=== PATIENT | female | born 1940 | race Caucasian/White ===

== ENCOUNTER 2016-11-23 12:34 | Emergency (ER) | payer BC ==
[~2016-11-23] VITALS: Ht 162.6 cm; Wt 65.9 kg
[~2016-11-23 12:34] MED LIST: ACET-1311 PO; AMLO-110 PO; ASCO1CAP3 PO; ASPEC81 PO; BISA10SU38 PR; BSP15 PO; CPC PO; CYCL10TA6 PO; FEBU40TA PO; HYOS1TAB PO; LCTX PO; LSX20 PO; LVQ500 PO; MULT-506 PO; NUTR-7 PO; OXYC-164 PO; OXYC-292 PO; POTA20TA16 PO; SITA50TA PO; TPRSR25 PO; ZLF50 PO; ZNTT/150 PO
[2016-11-23 12:38] VITALS: TEMP 36.8; Ht 162.6 cm; Wt 65.9 kg
[2016-11-23 12:43] VITALS: O2SAT 95
[2016-11-23] MEDS ORDERED: SODIUM CHLORIDE 0.9% 1000ML 1,000 ML IV ONE (13:08)
[2016-11-23] MEDS ORDERED: FENTANYL CITRATE INJ 50 MCG/1 ML 2 ML VIAL IV STA (13:13)
[2016-11-23] MEDS ORDERED: ONDANSETRON INJ 2 MG/ML 2 ML VIAL IV STA (13:13)
--- NOTE | 2016-11-23 13:19 | EMERGENCY ROOM VISIT NOTE ---
History Report prepared by Donnie: Dia Olivera Under the Supervision of: Dr. Alverto Reeves M.D. First contact with patient: 12:59 Chief Complaint: CONFUSION Stated Complaint: AMS/CONFUSION/WOUND ON BACK SIDE Nursing Triage Summary: Patient resides at [facility] and has a sacral wound, staff had wound vac on and felt it was looking worse so the wound wound vac was removed, patient also had reported increased confusion this morning. Patient states "i dont remember anything except being loaded into the ambulance", Patient is alert to place and person and confused on times. History of Present Illness The patient is a 76 year old female who presents to the Emergency Room with complaints of worsening confusion. She was brought to the ED via EMS from [facility], where she currently resides. The patient has a sacral wound with a wound vac in place, but EMS reports staff at [facility] felt it was looking worse, so they removed the wound vac earlier today. They also report the patient was increasingly confused and had a fever this morning, which prompted an ambulance being called. The patient currently complains of feeling weak and fatigued. She does not have a fever here in the ED. She is able to state where is currently and knows the month, but not the day of the week. She denies any abdominal pain. 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 A total of 10 systems reviewed and were otherwise negative. Past Medical & Surgical Medical Problems: (1) Acute kidney failure (2) Hypertension (3) Sacral osteomyelitis (4) Sacral wound Family History Breast cancer MOTHER Colon cancer BROTHER Diabetes mellitus FATHER MOTHER Heart disease FATHER MOTHER Hypertension FATHER MOTHER Social History Smoking Status: Never Smoker Drug Use: none Marital Status: Housing Status: lives alone Occupation Status: retired Current/Historical Medications Scheduled Amlodipine (Norvasc), 5 MG PO DAILY Ascorbic Acid (Vitamin C), 500 MG PO BID Aspirin Enteric Coated (Ecotrin Or Generic *), 81 MG PO DAILY Buspirone HCl (Buspirone HCl), 15 MG PO TID Cyclobenzaprine Hcl (Flexeril), 1 TAB PO TID Febuxostat (Uloric), 1 TAB PO DAILY Furosemide (Furosemide), 20 MG PO QAM Lactobacillus Acidophilus (Floranex), 4 TAB PO TIDM Levofloxacin (Levofloxacin), 750 MG PO Q48H Metoprolol Succinate (Metoprolol Succinate ER), 75 MG PO DAILY Multivitamin (Multivitamin), 1 TAB PO DAILY Nutritional Supplements (Boost), 1 CAN PO BIDM Potassium Ext Rel (Klor-Con), 20 MEQ PO DAILY Ranitidine (Zantac), 1 TAB PO BID Sertraline HCl (Sertraline HCl), 50 MG PO DAILY Sitagliptin Phosphate (Januvia), 1 TAB PO DAILY Sulfa/Trimethoprim (Bactrim Ds 800MG/160MG), 1 TAB PO BID Scheduled PRN Acetaminophen (Tylenol), 650 MG PO Q6 PRN for Temp Bisacodyl (Dulcolax), 1 SUPP WA DAILY PRN for Constipation Hyoscyamine Sulfate (Levsin), 0.125 MG PO Q6 PRN for Pain Menthol (Ricola), 1 THUAN PO PRN PRN for SORE THROAT Oxycodone Hcl (Oxycodone Hcl Er), 10 MG PO BID PRN for Pain Oxycodone Hcl (Oxycodone Hcl), 1 TAB PO Q4 PRN for Pain Allergies Coded Allergies: Morphine (Verified Adverse Reaction, Unknown, "BECAME PALE AND NEARLY PASSED OUT WITH SPORTS CLERK MORPHINE", 11/08/16) BECAME PALE AND NEARLY PASSED-OUT WITH SPORTS CLERK MORPHINE (NO SKIN RASH, NO DIFFICULTY BREATHING), BUT HAS TOLERATED PERCOCET AND DEMEROL ON PAST ADMISSION. Physical Exam Vital Signs Date Time Temp Pulse Resp B/P Pulse Ox O2 Delivery O2 Flow Rate FiO2 11/23/16 17:07 72 18 114/62 98 11/23/16 15:24 76 18 150/77 96 Room Air 11/23/16 14:00 83 18 127/67 93 Room Air 11/23/16 12:50 84 11/23/16 12:43 95 Room Air 11/23/16 12:38 36.8 86 18 118/62 98 Room Air Physical Exam GENERAL: Patient is a healthy-appearing well-nourished HEAD: Normocephalic atraumatic EYES: Ocular movements intact pupils equal and react to light OROPHARYNX mucous membranes are moist no exudates present no erythema or edema present NECK: Supple no nuchal rigidity CHEST: Good equal expansion LUNGS: Clear and equal to auscultation CARDIAC: Normal S1 and S2 ABDOMEN: Soft nontender no guarding BACK: Quarter sized decubitus ulcer on buttock, stage 2. No CVA tenderness EXTREMITIES: No pain upon palpation normal muscle strength in all groups no clubbing cyanosis or edema NEURO: Patient is following commands is answering questions appropriately. Alert and oriented x3 Cranial Nerves 2-12 grossly intact Medical Decision & Procedures ER Provider Diagnostic Interpretation: This X-Ray was reviewed and interpreted by myself and the radiologist. SINGLE VIEW CHEST IMPRESSION: There is no acute cardiopulmonary abnormality. Electronically signed by: Hang Molina M.D. 11/23/2016 1:[address] scan was reviewed and interpreted by the radiologist and reviewed by myself. CT SCAN OF THE BRAIN WITHOUT IV CONTRAST IMPRESSION: There is no hemorrhage, mass effect, or evidence of acute territorial ischemia by CT criteria. Electronically signed by: Hang Molina M.D. 11/23/2016 3:11 PM Laboratory Results 11/23/16 12:50 Red Blood Count 4.06, Mean Corpuscular Volume 88.7, Mean Corpuscular Hemoglobin 29.1, Mean Corpuscular Hemoglobin Concent 32.8, Mean Platelet Volume 11.3, Neutrophils (%) (Auto) 73.0, Lymphocytes (%) (Auto) 12.5, Monocytes (%) (Auto) 11.5, Eosinophils (%) (Auto) 2.5, Basophils (%) (Auto) 0.2, Neutrophils # (Auto ) 7.12, Lymphocytes # (Auto) 1.22, Monocytes # (Auto) 1.12, Eosinophils # (Auto ) 0.24, Basophils # (Auto) 0.02 11/23/16 12:50 Test 11/23/16 12:50 11/23/16 13:45 11/23/16 13:50 White Blood Count 9.75 K/uL (4.8-10.8) Red Blood Count 4.06 M/uL (4.2-5.4) Hemoglobin 11.8 g/dL (12.0-16.0) Hematocrit 36.0 % (37-47) Mean Corpuscular Volume 88.7 fL (80-100) Mean Corpuscular Hemoglobin 29.1 pg (25-34) Mean Corpuscular Hemoglobin Concent 32.8 g/dl (32-36) Platelet Count 246 K/uL (130-400) Mean Platelet Volume 11.3 fL (7.4-10.4) Neutrophils (%) (Auto) 73.0 % Lymphocytes (%) (Auto) 12.5 % Monocytes (%) (Auto) 11.5 % Eosinophils (%) (Auto) 2.5 % Basophils (%) (Auto) 0.2 % Neutrophils # (Auto) 7.12 K/uL (1.4-6.5) Lymphocytes # (Auto) 1.22 K/uL (1.2-3.4) Monocytes # (Auto) 1.12 K/uL (0.11-0.59) Eosinophils # (Auto) 0.24 K/uL (0-0.5) Basophils # (Auto) 0.02 K/uL (0-0.2) RDW Standard Deviation 47.2 fL (36.4-46.3) RDW Coefficient of Variation 14.6 % (11.5-14.5) Immature Granulocyte % (Auto) 0.3 % Immature Granulocyte # (Auto) 0.03 K/uL (0.00-0.02) Prothrombin Time 12.1 SECONDS (9.0-12.0) Prothromb Time International Ratio 1.1 (0.9-1.1) Activated Partial Thromboplast Time 29.4 SECONDS (21.0-31.0) Partial Thromboplastin Ratio 1.1 Anion Gap 9.0 mmol/L (3-11) Est Creatinine Clear Calc Drug Dose 47.6 ml/min Estimated GFR () 68.3 Estimated GFR (Non- 58.9 BUN/Creatinine Ratio 26.6 (10-20) Bedside Lactic Acid Venous 0.85 mmol/L (0.90-1.70) Calcium Level 8.5 mg/dl (8.5-10.1) Total Bilirubin 0.5 mg/dl (0.2-1) Aspartate Amino Transf (AST/SGOT) 25 U/L (15-37) Alanine Aminotransferase (ALT/SGPT) 19 U/L (12-78) Alkaline Phosphatase 96 U/L (45-117) Total Creatine Kinase 99 U/L (26-192) Creatine Kinase MB 1.0 ng/ml (0.5-3.6) Creatine Kinase MB Ratio 1.0 (0-3.0) Troponin I < 0.015 ng/ml (0-0.045) Total Protein 5.5 gm/dl (6.4-8.2) Albumin 2.6 gm/dl (3.4-5.0) Globulin 2.9 gm/dl (2.5-4.0) Albumin/Globulin Ratio 0.9 (0.9-2) Urine Color YELLOW Urine Appearance CLEAR (CLEAR) Urine pH 6.0 (4.5-7.5) Urine Specific [place] 1.011 (1.000-1.030) Urine Protein NEG (NEG) Urine Glucose (UA) NEG (NEG) Urine Ketones NEG (NEG) Urine Occult Blood NEG (NEG) Urine Nitrite NEG (NEG) Urine Bilirubin NEG (NEG) Urine Urobilinogen NEG (NEG) Urine Leukocyte Esterase SMALL (NEG) Urine WBC (Auto) 5-10 /hpf (0-5) Urine RBC (Auto) 0-4 /hpf (0-4) Urine Hyaline Casts (Auto) 1-5 /lpf (0-5) Urine Epithelial Cells (Auto) >30 /lpf (0-5) Urine Bacteria (Auto) NEG (NEG) Influenza Type A Antigen Neg for Influ A (NEG) Influenza Type B Antigen Neg for Influ B (NEG) Medications Administered Medications (Trade) Dose Ordered Sig/Lulú Route Start Time Stop Time Status Last Admin Dose Admin Sodium Chloride (Nss 1000ml) 1,000 ml @ 999 mls/hr Q1H1M ONCE IV 11/23/16 13:08 11/23/16 14:08 DC 11/23/16 13:08 999 MLS/HR Fentanyl Citrate (Fentanyl Inj) 50 mcg NOW STAT IV 11/23/16 13:13 11/23/16 13:15 DC 11/23/16 13:41 50 MCG Ondansetron HCl (Zofran Inj) 4 mg NOW STAT IV 11/23/16 13:13 11/23/16 13:15 DC 11/23/16 13:40 4 MG Ceftriaxone Sodium (Rocephin Inj) 1 gm NOW STAT IV 11/23/16 14:39 11/23/16 14:40 DC 11/23/16 15:25 1 GM Trimethoprim/ Sulfamethoxazole (Septra Ds 800/ 160MG Tab) 1 tab NOW STAT PO 11/23/16 15:18 11/23/16 15:19 DC 11/23/16 15:32 1 TAB ECG Indication: altered mental status Rate (beats per minute): 82 Rhythm: normal sinus (normal sinus rhythm) Findings: no acute ischemic change, no ectopy ED Course 1310: Past medical records reviewed. The patient was evaluated in room A3. A complete history and physical examination was performed. 1308: NSS 1000 ml @ 999 mls/hr IV. 1313: Zofran 4 mg IV, Fentanyl Citrate 50 mcg IV. 1439: Rocephin 1 gm IV. 1518: Septra Ds 800/160 mg 1 tab PO. 1520: I reevaluated the patient. She is feeling better. I discussed her results and discharge instructions and she verbalized complete understanding and agreement. Medical Decision Prior records reviewed and summarized as above. Triage Nursing notes reviewed. Additional history obtained from EMS and nursing staff. The patient's history was concerning for swelling and redness of the skin. Differential diagnosis: Etiologies such as cellulitis, abscess, MRSA infection, DVT, necrotizing fasciitis, dermatitis, drug eruption, as well as others were entertained. This is a 76-year-old female who was sent into the emergency department over concerns that the patient had an occasion mental status. Upon arrival to the emergency department the patient appears alert and oriented. An IV was established, patient given normal saline bolus. The patient does appear to have urinary tract infection and was started on Rocephin as well as Bactrim. She has a normal CAT scan of the head. She has a normal CBC normal renal profile normal liver profile. Her vital signs are normal. She is nontoxic in appearance. Prior to discharge the patient was ambulated around the emergency department and was feeling much better. I feel she is well enough to be discharged back to [facility]. Patient was in agreement with the treatment plan. Impression Primary Impression: Urinary tract infection Scribe Attestation The scribe's documentation has been prepared under my direction and personally reviewed by me in its entirety. I confirm that the note above accurately reflects all work, treatment, procedures, and medical decision making performed by me. Departure Information Dispostion Home / Self-Care Prescriptions Sulfa/Trimethoprim (Bactrim Ds 800MG/160MG) Tab 1 TAB PO BID for 7 Days, #14 TAB Prov: Alverto Reeves MD 11/23/16 Referrals Yuriy Henriquez MD (PCP) Patient Instructions A Signature Page, ED UTI Cystitis Female, My [facility] Additional Instructions Increase fluids next 48 hours Culture results are usually available in approx 48 hours You have been examined and treated today on an emergency basis only. This is not a substitute for, or an effort to provide, complete comprehensive medical care. It is impossible to recognize and treat all injuries or illnesses in a single emergency department visit. It is therefore important that you follow up closely with Dr Henriquez. Call as soon as possible for an appointment. Thank you for your time and consideration. I look forward to speaking with you again soon. Please don't hesitate to call us if you have any questions.
[2016-11-23 13:21] LABS: BASO % 0.2 %; BASO ABS # 0.02 K/uL (0-0.2); COMPLETE YES; EOS % 2.5 %; IG% 0.3 %; LYMPH % 12.5 %; LYMPH ABS # 1.22 K/uL (1.2-3.4); MEAN CELL VOLUME 88.7 fL (80-100); MEAN CORPUSCULAR HEMOGLOBIN 29.1 pg (25-34); MEAN CORPUSCULAR HGB CONC 32.8 g/dl (32-36); MEAN PLATELET VOLUME 11.3 fL (7.4-10.4); MONO % 11.5 %; PLATELET COUNT 246 K/uL (130-400); RED BLOOD COUNT 4.06 M/uL (4.2-5.4); WHITE BLOOD COUNT 9.75 K/uL (4.8-10.8)
[2016-11-23 13:29] LABS: ALT/SGPT 19 U/L (12-78); AST/SGOT 25 U/L (15-37); BLOOD UREA NITROGEN 25 mg/dl (7-18); BUN/CREATININE RATIO 26.6 (10-20); CALCIUM 8.5 mg/dl (8.5-10.1); CARBON DIOXIDE 28 mmol/L (21-32); CHLORIDE 110 mmol/L (98-107); CREATININE 0.94 mg/dl (0.60-1.20); GLUCOSE 122 mg/dl (70-99); POTASSIUM 3.3 mmol/L (3.5-5.1); SODIUM 147 mmol/L (136-145)
[2016-11-23 13:34] LABS: ALB/GLOB RATIO 0.9 (0.9-2); ALKALINE PHOSPHATASE 96 U/L (45-117); INR 1.1 (0.9-1.1); PARTIAL THROMBOPLASTIN RATIO 1.1; PROTHROMBIN TIME (PATIENT) 12.1 SECONDS (9.0-12.0)
--- NOTE | 2016-11-23 13:36 | DIAGNOSTIC IMAGING REPORT ---
SINGLE VIEW CHEST CLINICAL HISTORY: Change in mental status. FINDINGS: An AP, portable, upright chest radiograph is compared to study dated 11/08/2016. Correlation is made with abdominal CT dated 10/22/2016. The examination is degraded by portable technique and patient rotation. The heart is top normal for projection. There is atherosclerotic calcification of the thoracic aorta. The pulmonary vasculature is noncongested. There are low lung volumes. Chronic interstitial thickening is unchanged. No airspace consolidation, large pleural effusion, or pneumothorax is seen. The skeletal structures are osteopenic. Advanced arthritic change is present in the shoulders. IMPRESSION: There is no acute cardiopulmonary abnormality. Electronically signed by: Hang Molina M.D. 11/23/2016 1:35 PM
[2016-11-23 14:15] LABS: URINE APPEARANCE CLEAR (CLEAR); URINE BILIRUBIN NEG (NEG); URINE COLOR YELLOW; URINE EPITHELIAL CELL AUTO >30 /lpf (0-5); URINE NITRITE NEG (NEG); URINE SPECIFIC GRAVITY 1.011 (1.000-1.030); UROBILINOGEN NEG (NEG); ZZUR CULT IF INDIC CLEAN CATCH NO
[2016-11-23 14:16] LABS: MANUAL MICROSCOPIC REQUIRED? NO; REVIEW REQ? NO
[2016-11-23] MEDS ORDERED: CEFTRIAXONE SOD INJ 1 GM ADDVIAL IV STA (14:39)
--- NOTE | 2016-11-23 15:12 | DIAGNOSTIC IMAGING REPORT ---
CT SCAN OF THE BRAIN WITHOUT IV CONTRAST CLINICAL HISTORY: Change in mental status. COMPARISON STUDY: No priors. TECHNIQUE: Unenhanced axial CT scan of the brain is performed from the vertex to the skull base. CT DOSE: 537.48 mGy.cm FINDINGS: Brain parenchyma: There are age-related involutional changes noting mild subcortical and periventricular microangiopathic change. There is no hemorrhage, mass effect, or evidence of acute territorial ischemia by CT criteria. Zelaya-white matter is preserved. Mineralization is noted in the basal ganglia. No extra-axial fluid collection is seen. Ventricles, sulci, cisterns: Prominent secondary to involutional change. Intracranial vasculature: There is atherosclerotic calcification of the cavernous carotid arteries. Calvarium: Unremarkable. Sinuses and mastoids: The visualized paranasal sinuses are clear. The mastoid air cells are well pneumatized. Orbits: The bony orbits are grossly intact. IMPRESSION: There is no hemorrhage, mass effect, or evidence of acute territorial ischemia by CT criteria. Electronically signed by: Hang Molina M.D. 11/23/2016 3:11 PM
[2016-11-23] MEDS ORDERED: SULFAMETHOXAZOLE/TRIMETHOPRIM DS 800/160MG TAB PO STA (15:18)
[2016-11-23] MEDS ORDERED: SULF800T23 PO (15:22)
[2016-11-23 17:07] VITALS: BP 114/62; PULSE 72; O2SAT 98
[2016-12-02] MEDS ORDERED: SULF800T23 PO (10:36)
[2016-12-02] MEDS ORDERED: AMOX500T PO (10:41)
[2016-12-16] MEDS ORDERED: AMOX875T PO (11:24)
[2016-12-23] MEDS ORDERED: SITA50TA3 PO (14:32)
[2016-12-23] MEDS ORDERED: FEBU40TA PO (14:32)
[2016-12-23] MEDS ORDERED: LCTX PO (14:32)
[2017-01-20] MEDS ORDERED: FURO-85 PO (14:56)
[2017-01-20] MEDS ORDERED: SITA50TA3 PO (14:56)
[2017-01-20] MEDS ORDERED: MIRT15TA2 PO (14:56)
[2017-01-20] MEDS ORDERED: BUSP15TA70 PO (14:56)
[2017-01-20] MEDS ORDERED: AMOX875T PO (14:59)
[2017-01-20] MEDS ORDERED: [UNRECOGNIZED DRUG - OTHER] PO (14:59)
[2017-01-20] MEDS ORDERED: METO25TA3 PO (14:59)
== END 2016-11-23 17:09 | disposition home or self-care (01) ==
LOC: EDBD 12:34 → C.EDA 12:36
DX: N39.0 Urinary tract infection, site not specified (principal); I10 Essential (primary) hypertension; L89.302 Pressure ulcer of unspecified buttock, stage 2; R41.0 Disorientation, unspecified

== ENCOUNTER → 2017-01-03 | Outpatient (CLI) | payer BC ==
[~2017-01-03] MED LIST changes: +AMOX875T PO; +BUSP15TA70 PO; +FURO-85 PO; -LCTX PO; -LVQ500 PO; +METO25TA3 PO; +MIRT15TA2 PO; +OXYC1TAB3 PO; +OXYC20TA50 PO; +SITA50TA3 PO; +TRAZ50TA35 PO; +[UNRECOGNIZED DRUG - OTHER] PO
[2017-01-03 10:32] LABS: BASO % 0.4 %; BASO ABS # 0.04 K/uL (0-0.2); COMPLETE YES; EOS % 29.5 %; HEMATOCRIT 37.8 % (37-47); IG% 0.2 %; LYMPH % 7.2 %; LYMPH ABS # 0.82 K/uL (1.2-3.4); MEAN CELL VOLUME 88.7 fL (80-100); MEAN CORPUSCULAR HEMOGLOBIN 29.3 pg (25-34); MEAN CORPUSCULAR HGB CONC 33.1 g/dl (32-36); MEAN PLATELET VOLUME 12.7 fL (7.4-10.4); NEUT % 57.7 %; PLATELET COUNT 267 K/uL (130-400); RED BLOOD COUNT 4.26 M/uL (4.2-5.4); WHITE BLOOD COUNT 11.33 K/uL (4.8-10.8)
[2017-01-03 10:49] LABS: BLOOD UREA NITROGEN 24 mg/dl (7-18); BUN/CREATININE RATIO 24.1 (10-20); CALCIUM 9.3 mg/dl (8.5-10.1); CARBON DIOXIDE 26 mmol/L (21-32); CHLORIDE 109 mmol/L (98-107); GLUCOSE 108 mg/dl (70-99); POTASSIUM 4.1 mmol/L (3.5-5.1); SODIUM 143 mmol/L (136-145)
[2017-01-03 10:53] LABS: PREALBUMIN 24.6 mg/dl (20-40)
[2017-01-03 13:56] LABS: ESTIMATED AVERAGE GLUCOSE 123 mg/dl; HA1C FLAG Normal (Normal)
== END | disposition home or self-care (01) ==
LOC: C.LABSPEC 01-02 10:42
PROVIDERS: ATTEND Plastic Surgery
DX: I10 Essential (primary) hypertension (principal); E11.9 Type 2 diabetes mellitus without complications

== ENCOUNTER 2017-01-26 05:29 | Observation (INO) | payer BC ==
[2017-01-20 15:02] VITALS: BMI 21.0
--- NOTE | 2017-01-20 15:37 | PAT Medication Instructions ---
Service Date Jan 20, 2017. Current Home Medication List Acetaminophen (Tylenol), 650 MG PO Q6 PRN for Temp Amlodipine (Norvasc), 5 MG PO DAILY Amoxicillin & Pot Clavulanate (Augmentin 875-125 mg), 1 TAB PO BID Ascorbic Acid (Vitamin C), 500 MG PO BID Aspirin Enteric Coated (Ecotrin Or Generic *), 81 MG PO QAM Buspirone Hcl (Buspar), 15 MG PO TID Furosemide (Lasix), 20 MG PO QAM Metoprolol Succ (Toprol Xl) (Toprol-Xl), 25 MG PO DAILY Mirtazapine Soltab (Remeron Soltab), 15 MG PO HS Multivitamin (Multivitamin), 1 TAB PO QAM Oxycodone Hcl (Oxycodone Hcl Er), 10 MG PO BID Sitagliptin (Januvia), 50 MG PO DAILY [Culturellle], 1 TAB PO NOON Medication Instructions For Your Scheduled Surgery - Check with surgeon for instructions: Aspirin Enteric Coated (Ecotrin Or Generic *), 81 MG PO QAM - Hold the following medications the morning of surgery: Sitagliptin (Januvia), 50 MG PO DAILY Multivitamin (Multivitamin), 1 TAB PO QAM Furosemide (Lasix), 20 MG PO QAM Ascorbic Acid (Vitamin C), 500 MG PO BID - Take the following medications the morning of surgery with a sip of water: Metoprolol Succ (Toprol Xl) (Toprol-Xl), 25 MG PO DAILY Buspirone Hcl (Buspar), 15 MG PO TID Amlodipine (Norvasc), 5 MG PO DAILY Amoxicillin & Pot Clavulanate (Augmentin 875-125 mg), 1 TAB PO BID Acetaminophen (Tylenol), 650 MG PO Q6 PRN for Temp (if needed) Oxycodone Hcl (Oxycodone Hcl Er), 10 MG PO BID (okay to take up to 4 hours prior to surgery) - Take the following medications as scheduled the night/afternoon before surgery : Mirtazapine Soltab (Remeron Soltab), 15 MG PO HS Buspirone Hcl (Buspar), 15 MG PO TID Amoxicillin & Pot Clavulanate (Augmentin 875-125 mg), 1 TAB PO BID Acetaminophen (Tylenol), 650 MG PO Q6 PRN for Temp (if needed) Oxycodone Hcl (Oxycodone Hcl Er), 10 MG PO BID [Culturellle], 1 TAB PO NOON If you have any questions please call us at [phone] (Hillary Walker PA-C ) or [phone] or [phone]
[2017-01-20 15:52] LABS: BASO % 0.2 %; BASO ABS # 0.02 K/uL (0-0.2); COMPLETE YES; EOS % 11.1 %; HEMATOCRIT 38.3 % (37-47); IG% 0.2 %; LYMPH % 12.7 %; LYMPH ABS # 1.27 K/uL (1.2-3.4); MEAN CELL VOLUME 91.2 fL (80-100); MEAN CORPUSCULAR HEMOGLOBIN 30.2 pg (25-34); MEAN CORPUSCULAR HGB CONC 33.2 g/dl (32-36); MEAN PLATELET VOLUME 11.6 fL (7.4-10.4); MONO % 7.5 %; NEUT % 68.3 %; PLATELET COUNT 264 K/uL (130-400); WHITE BLOOD COUNT 10.01 K/uL (4.8-10.8)
[~2017-01-26] VITALS: Ht 167.6 cm; Wt 60.4 kg
[2017-01-26] VITALS (10 sets, daily range): BP systolic 117–149; BP diastolic 51–71; PULSE 65–84; TEMP 36.4–37; O2SAT 94–99; Ht 167.6 cm; Wt 60.4 kg
[~2017-01-26 05:29] MED LIST changes: -BISA10SU38 PR; -BSP15 PO; -CPC PO; -CYCL10TA6 PO; -FEBU40TA PO; -HYOS1TAB PO; -LSX20 PO; -NUTR-7 PO; -OXYC-164 PO; -OXYC1TAB3 PO; -OXYC20TA50 PO; -POTA20TA16 PO; -SITA50TA PO; -TPRSR25 PO; -TRAZ50TA35 PO; -ZLF50 PO; -ZNTT/150 PO
[2017-01-26] MEDS ORDERED: CEFAZOLIN 2000 MG/60 ML D5W IV SCH (06:00)
[2017-01-26] MEDS ORDERED: LACTATED RINGER'S 1000ML 1,000 ML IV SCH (06:00)
[2017-01-26] MEDS ORDERED: FEBU40TA PO (06:02)
[2017-01-26] MEDS ORDERED: OXYC20TA50 PO (06:02)
[2017-01-26] MEDS ORDERED: OXYC1TAB3 PO (06:02)
[2017-01-26] MEDS ORDERED: LIDOCAINE HCL 2% 2 ML VIAL (20MG/ML) ONE (06:44)
[2017-01-26] MEDS ORDERED: PROPOFOL IV EMULSION 10 MG/ML 20 ML VIAL IV ONE (06:44)
[2017-01-26] MEDS ORDERED: ONDANSETRON INJ 2 MG/ML 2 ML VIAL ONE ×2 (06:44→07:44)
[2017-01-26] MEDS ORDERED: MIDAZOLAM HCL 1 MG/ML 2ML VIAL ONE (06:45)
[2017-01-26] MEDS ORDERED: FENTANYL CITRATE INJ 50 MCG/1 ML 2 ML VIAL ONE (06:45)
--- NOTE | 2017-01-26 06:53 | History & Physical Bridge Note ---
H&P Re-Evaluation Bridge Note: I have examined the patient, reviewed the History & Physical and in the interval since the performance of the History & Physical I have noted the following changes of clinical significance: No changes noted
[2017-01-26] MEDS ORDERED: LIDOCAINE/EPINEPHRINE 1% 20 ML VIAL ONE (06:55)
[2017-01-26] MEDS ORDERED: ROCURONIUM BROMIDE 10 MG/ML 5 ML VIAL ONE (07:44)
[2017-01-26] MEDS ORDERED: NEOSTIGMINE METHYLSULFATE 5 MG/5 ML SYR ONE (07:53)
[2017-01-26] MEDS ORDERED: GLYCOPYRROLATE INJ 0.2 MG/ML VIAL ONE (07:53)
[2017-01-26] MEDS ORDERED: FENTANYL CITRATE INJ 50 MCG/1 ML 2 ML VIAL IV PRN (08:00)
[2017-01-26] MEDS ORDERED: PROMETHAZINE HCL INJ 6.25 MG in SODIUM CHLORIDE 0.9% 50ML 50 ML IV PRN (08:00)
[2017-01-26] MEDS ORDERED: ATROPINE SULFATE 0.1 MG/ML 5ML SYR IV PRN (08:00)
[2017-01-26] MEDS ORDERED: ONDANSETRON INJ 2 MG/ML 2 ML VIAL IV PRN ×2 (08:00→08:45)
[2017-01-26] MEDS ORDERED: EpHEDrine SULFATE INJ 50 MG/ML AMP IV PRN (08:00)
[2017-01-26] MEDS ORDERED: THROMBIN 5000 UNITS KIT ONE (08:12)
[2017-01-26] MEDS ORDERED: GELATIN SPONGE 12-7MM ONE (08:12)
[2017-01-26] MEDS ORDERED: GELATIN SPONGE SZ 100 ONE (08:13)
[2017-01-26] MEDS ORDERED: METHYLENE BLUE 1% 10 ML VIAL TOP ONE (08:21)
--- NOTE | 2017-01-26 08:38 | [facility] Post Operative Brief Note ---
Immediate Operative Summary Operative Date Jan 26, 2017. Pre-Operative Diagnosis Sacral osteomylitis Post-Operative Diagnosis Same as pre-operative diagnosis Procedure(s) Performed Debridement and Closure of Sacrococcygeal Ulcer Surgeon Dr. Sabiha Mensah Manager Delivery Surgeon(s) Arlin Leonard PA-C Estimated Blood Loss 5cc Findings prominent sacrum, bone firm Specimens Culture #1: Sacral pressure ulcer, products of debridement for stat gram stain, routine culture and sensitivity, anaerobic/aerobic. Out of room at 0806 by Piotr Beaver OR Sweta. Culture #2: Sacral bone for stat gram stain, routine culture and sensitivity, anaerobic/aerobic. Out of room at 0806 by Piotr Beaver OR Sweta. A: Sacral bone Anesthesia GET Complication(s) None Disposition Recovery Room / PACU
[2017-01-26] MEDS ORDERED: PROCHLORPERAZINE INJ 5 MG in SYRINGE 4 ML IV PRN (08:45)
[2017-01-26] MEDS ORDERED: OXAZEPAM 10MG CAP PO PRN (08:45)
[2017-01-26] MEDS ORDERED: MEPERIDINE HCL 25 MG/ML CARP IV PRN (08:45)
[2017-01-26] MEDS ORDERED: ACETAMINOPHEN 325 MG TAB PO PRN (08:45)
[2017-01-26] MEDS ORDERED: DiphenhydrAMINE HCL 50 MG/ML VIAL IV PRN (08:45)
[2017-01-26] MEDS: SITAGLIPTIN 25 MG TAB PO SCH (09:00)
--- NOTE | 2017-01-26 09:23 | Anesthesiology Progress Note ---
Anesthesia Post Op Note Date & Time Jan 26, 2017 at 09:23 Vital Signs Pain Intensity: 4 Vital Signs Past 12 Hours Date Time Temp Pulse Resp B/P Pulse Ox O2 Delivery O2 Flow Rate FiO2 01/26/17 09:15 64 20 152/70 100 Nasal Cannula 4 01/26/17 09:05 64 20 159/64 100 Nasal Cannula 4 01/26/17 08:59 36.2 83 14 169/68 100 Nasal Cannula 4 01/26/17 06:03 36.6 72 22 138/67 97 Room Air Notes Mental Status: alert / awake / arousable, participated in evaluation Pt Amnestic to Procedure: Yes Nausea / Vomiting: adequately controlled Pain: adequately controlled Airway Patency, RR, SpO2: stable & adequate BP & HR: stable & adequate Hydration State: stable & adequate Anesthetic Complications: no major complications apparent
[2017-01-26] MEDS ORDERED: IV FLUIDS COMPLETED PRN (09:45)
[2017-01-26] MEDS: OXYCODONE/ACETAMINOPHEN 5-325 TAB PO PRN ×3 (11:20→19:07)
[2017-01-26] MEDS: FUROSEMIDE 20 MG TAB PO SCH ×2 (11:21→12:21)
[2017-01-26] MEDS: MULTIVITAMIN TAB PO SCH ×2 (11:22→12:22)
[2017-01-26] MEDS: AMLODIPINE BESYLATE 5 MG TAB PO SCH ×2 (11:22→12:22)
[2017-01-26] MEDS ORDERED: LACTOBACILLUS ACIDOPHILUS (FLORANEX) TAB PO SCH (12:00)
[2017-01-26] MEDS: D5W AND 1/2NSS + 20MEQ KCL 1,000 ML IV SCH (12:04)
[2017-01-26] MEDS: ASCORBIC ACID 500 MG TAB PO SCH (12:22)
[2017-01-26] MEDS: FEBUXOSTAT 40 MG TAB PO SCH (12:22)
[2017-01-26] MEDS: CEFAZOLIN IV 1,000 MG in DEXTROSE 5% 50ML 50 ML IV SCH ×2 (13:33→21:37)
[2017-01-26] MEDS: AMOXICILLIN/CLAVULANATE TAB 875 MG TAB PO SCH (21:37)
[2017-01-27] MEDS: D5W AND 1/2NSS + 20MEQ KCL 1,000 ML IV SCH (00:02)
[2017-01-27] MEDS: OXYCODONE/ACETAMINOPHEN 5-325 TAB PO PRN ×2 (00:05→07:37)
--- NOTE | 2017-01-27 00:21 | OPERATIVE REPORT ---
DATE OF OPERATION: 01/26/2017 PREOPERATIVE DIAGNOSIS: Sacral osteomyelitis. POSTOPERATIVE DIAGNOSIS: Same. PROCEDURE: Debridement and primary closure of sacrococcygeal ulcer. SURGEON: Dr. Sabiha Mensah. WAD IMPREGNATOR: Arlin Leonard PA-C. ANESTHESIA: General. COMPLICATIONS: None. INDICATION FOR THE PROCEDURE: The patient is a 76-year-old female who was referred to me via the wound care center with a nonhealing sacral ulceration which began after knee replacement surgery in 06/2016. Multiple wound healing modalities were attempted at the wound care center without success. I was asked to evaluate her for possible wound closure. At the time of evaluation, the ulcer itself was quite small, only about a centimeter in diameter with some degree of undermining and prominent bone contributing to her pressure point. I, therefore, discussed with her the option of debridement and closure. Given the small size of the ulcer, I thought it would be reasonable to attempt debridement with primary closure in this ambulatory patient. We discussed that failure rates can be quite high and that in many cases fasciocutaneous or muscle flap closure would be advantageous; however, as she is ambulatory, I felt this should be a last resort. DESCRIPTION OF THE PROCEDURE: Risks, benefits, and alternatives of the procedure were explained to the patient who agreed and signed consent. She was identified and marked in the preoperative holding area. She was brought to the operating room where she was positioned prone after being placed under general anesthesia. Surgical site was prepped and draped sterilely. A timeout procedure was performed. Methylene blue was instilled into the ulceration to determine the extent of the pseudobursa. 1% lidocaine with epinephrine was used to anesthetize the surrounding skin. A 15 blade scalpel made the elliptical incision around the ulceration in a vertically oriented direction as this would encompass the tunneling noted at 6 and 12 o'clock. The ulceration was excised using electrocautery. The base of the wound was noted to have covering of the sacrum and coccyx. There did not appear to be any active infection. Due to the bony prominence which was present, a rongeur was used to debride the bony prominence. After superficial debridement, the rongeur was used to obtain a bone culture. Following bone culture, intravenous antibiotics were administered. Debridement was continued until the pressure point was relieved. Throughout, the bone felt firm and did not clinically appear consistent with osteomyelitis. Hemostasis was achieved with electrocautery. Due to the patient's age, there is significant skin laxity noted and the width of the wound was only about 1.5 cm. Therefore, closure was performed using 2-0 Vicryl suture to reapproximate fascia over the bone, 2-0 Vicryl deep dermal sutures, 3-0 nylon interrupted vertical mattress sutures. Due to the location and potential for drainage, a Prevena wound VAC was placed. The procedure was tolerated well. The patient was awakened and transferred to recovery room in satisfactory condition. I attest to the content of the Intraoperative Record and any orders documented therein. Any exceptio ns are noted below.
[2017-01-27 04:20] VITALS: BP 109/60; PULSE 68; TEMP 36.8; O2SAT 96
[2017-01-27 07:00] VITALS: BP 98/58; PULSE 70; TEMP 36.9; O2SAT 98
--- NOTE | 2017-01-27 08:30 | Discharge Instructions ---
Discharge Instructions Date of Service Jan 27, 2017. Admission Reason for Admission: Sacral Osteomyelitits Discharge Discharge Diagnosis / Problem: sacral ulcder Discharge Goals Goal(s): Decrease discomfort Activity Recommendations Activity Limitations: per Instructions/Follow-up section ACTIVITY RECOMMENDATIONS: __Normal activities _x_No bending, lifting or straining. Do not put prolonged/direct pressure on buttock. __No driving __Driving allowed when you are off pain medications __Walking permitted __You should have help at home for ___ days DRESSINGS: __No dressings required _x_Keep dressings dry/in place until first office visit __Remove dressings ___ and leave dressings off __Apply ice ___ days __Remove dressings and reapply garment __Apply antibiotic ointment (Bacitracin, Neosporin, etc) to wounds 3-4 times/ day for 10 days BATHING: _x_Keep dressings dry _x_Sponge bathing permitted to wash hair/face __Showering permitted _x_No swimming, hot tubs or soaking in a tub MEDICATIONS: Resume previous medications unless instructed otherwise by your surgeon. _x_Do not use aspirin, Motrin, Advil or Ibuprofen as these may promote bleeding. Please use Tylenol. __Prescription(s) provided:None. Continue taking your antibiotics and pain medication from home meds OTHER INSTRUCTIONS: __Record drain output 2-3 times per day SPECIAL CARE INSTRUCTIONS: * It is normal to have a mild fever after surgery. If your temperature is higher than 101.5 degrees F, please call the office at [phone]. * Constipation is a typical side effect of pain medication. An over-the- counter stool softener will help relieve this. * Leaking around surgical drains may occur and should not cause concern. Sometimes these drains become clogged. If this happens, remove the bulb and milk the clot out of the tube, then replace the bulb. * Drainage from wounds after liposuction is normal and should be expected. Garments will become soiled. You should protect furniture and bedding. This drainage should mostly subside within 2-3 days. Leave garments in place unless instructed to remove them. * If you have unusual drainage from a wound or are concerned you have an infection or have any questions or concerns, please call the office at [phone]. FOLLOW UP VISIT: If not already scheduled, please call the office, , when you return home after surgery to schedule an appointment to be seen in _2__ days. Dr. Mensah will see you at wound care . Current Hospital Diet Patient's current hospital diet: Diabetes Type 2 Diet Discharge Diet Recommended Diet: Regular Diet Procedures Procedures Performed: Debridement and Closure of Sacrococcygeal Ulcer Pending Studies Studies pending at discharge: yes List of pending studies: culture and pathology Laboratory Results Hemoglobin A1c Test 01/03/17 10:00 Range/Units Estimated Average Glucose 123 mg/dl Hemoglobin A1c 5.9 H 4.5-5.6 % Medical Emergencies . Who to Call and When: Medical Emergencies: If at any time you feel your situation is an emergency, please call 911 immediately. . Non-Emergent Contact Non-Emergency issues call your: Primary Care Provider, Surgeon . "Provider Documentation" section prepared by Arlin Leonard. VTE Core Measure Inpt VTE Proph given/why not?: SCD's
[2017-01-27] MEDS: AMOXICILLIN/CLAVULANATE TAB 875 MG TAB PO SCH (08:38)
[2017-01-27 08:40] LABS: BASO % 0.2 %; BASO ABS # 0.02 K/uL (0-0.2); COMPLETE YES; EOS % 8.4 %; HEMATOCRIT 37.3 % (37-47); IG% 0.1 %; LYMPH % 9.6 %; LYMPH ABS # 0.98 K/uL (1.2-3.4); MEAN CELL VOLUME 89.7 fL (80-100); MEAN CORPUSCULAR HEMOGLOBIN 29.8 pg (25-34); MEAN CORPUSCULAR HGB CONC 33.2 g/dl (32-36); MEAN PLATELET VOLUME 11.3 fL (7.4-10.4); MONO % 7.2 %; NEUT % 74.5 %; PLATELET COUNT 248 K/uL (130-400); RED BLOOD COUNT 4.16 M/uL (4.2-5.4); WHITE BLOOD COUNT 10.26 K/uL (4.8-10.8)
[2017-01-27] MEDS: FUROSEMIDE 20 MG TAB PO SCH (08:41)
[2017-01-27] MEDS: ASCORBIC ACID 500 MG TAB PO SCH (08:41)
[2017-01-27] MEDS: SITAGLIPTIN 25 MG TAB PO SCH (08:41)
[2017-01-27] MEDS: AMLODIPINE BESYLATE 5 MG TAB PO SCH (08:42)
[2017-01-27] MEDS: MULTIVITAMIN TAB PO SCH (08:43)
[2017-01-27] MEDS: FEBUXOSTAT 40 MG TAB PO SCH (08:43)
[2017-01-27 08:44] VITALS: BP 117/62; PULSE 70
[2017-01-27 08:51] LABS: PROTHROMBIN TIME (PATIENT) 11.1 SECONDS (9.0-12.0)
[2017-01-27] MEDS ORDERED: METOPROLOL SUCC 25MG EXT REL TAB PO SCH (09:00)
[2017-01-27] MEDS ORDERED: BusPIRone 15 MG TAB PO SCH (09:00)
[2017-01-27 09:30] LABS: BUN/CREATININE RATIO 19.7 (10-20); CALCIUM 9.2 mg/dl (8.5-10.1); CREATININE 1.1 mg/dl (0.60-1.20); POTASSIUM 3.8 mmol/L (3.5-5.1)
[2017-01-27 09:32] LABS: ALB/GLOB RATIO 1.2 (0.9-2)
--- NOTE | 2017-01-27 10:21 | Surgery Progress Note ---
Surgery Progress Note Date of Service Jan 27, 2017. Subjective Post OP Day: 1 + feeling well, No complaints Objective Vital Signs: Date Time Temp Pulse Resp B/P Pulse Ox O2 Delivery O2 Flow Rate FiO2 01/27/17 08:44 70 117/62 01/27/17 07:46 Room Air 01/27/17 07:00 36.9 70 16 98/58 98 Room Air 01/27/17 04:20 36.8 68 16 109/60 96 Room Air 01/27/17 00:00 Room Air 01/26/17 23:10 37.0 74 16 133/62 95 Room Air 01/26/17 15:05 36.4 65 16 123/64 97 Room Air 01/26/17 13:20 36.5 67 16 133/67 95 Room Air 01/26/17 12:20 36.7 67 17 149/71 99 Room Air 01/26/17 11:20 36.7 71 17 117/51 99 Room Air 01/26/17 10:50 36.6 69 17 124/65 98 2.0 01/26/17 10:33 94 Nasal Cannula 2.0 01/26/17 10:28 94 Nasal Cannula 2.0 01/26/17 10:20 36.5 84 15 137/56 95 Nasal Cannula 2.0 General Appearance: WD/WN, no apparent distress Laboratory Results: Results Past 24 Hours Test 01/27/17 08:10 01/27/17 08:20 Range/Units Bedside Glucose 143 70-90 mg/dl White Blood Count 10.26 4.8-10.8 K/uL Red Blood Count 4.16 4.2-5.4 M/uL Hemoglobin 12.4 12.0-16.0 g/dL Hematocrit 37.3 37-47 % Mean Corpuscular Volume 89.7 80-100 fL Mean Corpuscular Hemoglobin 29.8 25-34 pg Mean Corpuscular Hemoglobin Concent 33.2 32-36 g/dl Platelet Count 248 130-400 K/uL Mean Platelet Volume 11.3 7.4-10.4 fL Neutrophils (%) (Auto) 74.5 % Lymphocytes (%) (Auto) 9.6 % Monocytes (%) (Auto) 7.2 % Eosinophils (%) (Auto) 8.4 % Basophils (%) (Auto) 0.2 % Neutrophils # (Auto) 7.65 1.4-6.5 K/uL Lymphocytes # (Auto) 0.98 1.2-3.4 K/uL Monocytes # (Auto) 0.74 0.11-0.59 K/uL Eosinophils # (Auto) 0.86 0-0.5 K/uL Basophils # (Auto) 0.02 0-0.2 K/uL RDW Standard Deviation 48.3 36.4-46.3 fL RDW Coefficient of Variation 14.8 11.5-14.5 % Immature Granulocyte % (Auto) 0.1 % Immature Granulocyte # (Auto) 0.01 0.00-0.02 K/uL Prothrombin Time 11.1 9.0-12.0 SECONDS Prothromb Time International Ratio 1.0 0.9-1.1 Activated Partial Thromboplast Time 26.1 21.0-31.0 SECONDS Partial Thromboplastin Ratio 1.0 Sodium Level 139 136-145 mmol/L Potassium Level 3.8 3.5-5.1 mmol/L Chloride Level 104 98-107 mmol/L Carbon Dioxide Level 24 21-32 mmol/L Anion Gap 11.0 3-11 mmol/L Blood Urea Nitrogen 22 7-18 mg/dl Creatinine 1.10 0.60-1.20 mg/dl Est Creatinine Clear Calc Drug Dose 40.7 ml/min Estimated GFR () 56.5 Estimated GFR (Non- 48.7 BUN/Creatinine Ratio 19.7 10-20 Random Glucose 143 70-99 mg/dl Calcium Level 9.2 8.5-10.1 mg/dl Total Bilirubin 0.5 0.2-1 mg/dl Aspartate Amino Transf (AST/SGOT) 107 15-37 U/L Alanine Aminotransferase (ALT/SGPT) 96 12-78 U/L Alkaline Phosphatase 185 45-117 U/L Total Protein 6.4 6.4-8.2 gm/dl Albumin 3.5 3.4-5.0 gm/dl Globulin 2.9 2.5-4.0 gm/dl Albumin/Globulin Ratio 1.2 0.9-2 Assessment & Plan s/p debridement of sacral ulcer 1. no complaints POD #1. patient resting comfortably with vac in place 2. d/c home. She will f/u at wound care on . D/C instructions reviewed
[2017-01-27 10:26] VITALS: BP 117/62; PULSE 70; TEMP 36.9; O2SAT 98
--- NOTE | 2017-01-27 11:48 | Discharge Summary ---
Discharge Summary Date of Service Jan 27, 2017. Admission Date/Reason Jan 26, 2017 at 10:42 Sacral Osteomyelitits. Discharge Date/Disposition Jan 27, 2017 Home Diagnosis Principal Diagnosis: sacral ulcer Secondary Diagnoses/Problems: Medical Problems: (1) Abnormal white blood cell (WBC) count Status: Acute (2) Acute kidney injury Status: Acute (3) DEREK (acute kidney injury) Status: Acute (4) Anemia Status: Acute (5) Bilateral lower leg cellulitis Status: Acute (6) Dehydration Status: Acute (7) Epigastric abdominal pain Status: Acute (8) Osteomyelitis of sacrum Status: Acute (9) Urinary tract infection Status: Acute Procedure(s) Performed debridement of sacral ulcer Medication Reconciliation Continued Medications: Acetaminophen (Tylenol) 325 Mg Tab 650 MG PO Q6 PRN for Temp, TAB Amlodipine (Norvasc) 5 Mg Tab 5 MG PO DAILY, TAB Amoxicillin & Pot Clavulanate (Augmentin 875-125 mg) 1 Tab Tab 1 TAB PO BID, #14 TAB NOON/PM Ascorbic Acid (Vitamin C) 500 Mg Cap 500 MG PO DAILY Buspirone Hcl (Buspar) 15 Mg Tab 15 MG PO TID, TAB Febuxostat (Uloric) 40 Mg Tab 1 TAB PO DAILY for 90 Days, #90 TAB 1 Refill Furosemide (Lasix) 20 Mg Tab 20 MG PO QAM, TAB Metoprolol Succ (Toprol Xl) (Toprol-Xl) 25 Mg Tabcr 25 MG PO DAILY, #30 TAB Oxycodone Hcl (Oxycontin) 20 Mg Tab 10 MG PO Q12, TAB Oxycodone Ir (Roxicodone Ir) 5 Mg Tab 10 MG PO Q4H PRN for Severe Pain, TAB Sitagliptin (Januvia) 50 Mg Tab 50 MG PO DAILY, TAB [Culturellle] () 1 TAB PO NOON Discontinued Medications: Aspirin Enteric Coated (Ecotrin Or Generic *) 81 Mg Ectab 81 MG PO QAM Admission Physical Exam As per Admitting History & Physical. Hospital Course Patient presented to [facility] with history of a sacral ulcer., She was taken to the OR and underwent debridement of the ulcer. Culture and gram stain was taken of overlying soft tissue and bone. Biopsies were taken and sent to pathology. Wound vac dressing was placed. Patient tolerated the procedure well. On POD#1, she was resting comfortable. Her wound vac was in place. VSS. She was sent home with instructions to follow-up at wound care on . Discharge Instructions Please refer to the electronic Patient Visit Report (Discharge Instructions) for additional information.
--- NOTE | 2017-01-28 14:28 | EDITING REQUIRED CODING QUERY ---
DEBRIDEMENT DOCUMENTATION To promote full compliance with coding requirements relating to patient care, physician participation is requested in all cases of supervisor erection shop uncertainty. Please assist us with the question(s) below: Please place an X in the parenthesis (x). If other, please document the finding: BONE DEBRIDEMENT: Type of Debridement: (x ) Excisional Debridement- Cutting away necrotic, devitalized tissue or slough to the level of viable tissue using a sharp instrument (i.e. scalpel, scissors, etc.) ( ) Non Excisional Debridement- The removal of necrotic, devitalized tissue or slough by means of scraping, mechanical brushing, flushing, or washing (i.e. irrigation,whirlpool);minor removal of loose fragments. ( ) Other (please specify): Please Specify the Size of Debridement in cm2: ULCER DEBRIDEMENT: Depth of Debridement: ( ) Skin ( ) Skin and Subcutaneous Tissue ( ) Skin, Subcutaneous Tissue and Muscle (x ) Skin, Subcutaneous Tissue, Muscle and Bone ( ) Other (please specify): Please Specify the Size of Debridement in cm2: 5 cm2. This should not be coded as a debridement; there is a pressure ulcer excision and closure code that is more appropriate. Thanks. Thanks. Thank you for your assistance, Tanika Platt - Wet [employer] Blender
== END 2017-01-27 11:36 | disposition home or self-care (01) ==
LOC: ENRESERVDT → ENRESERVTM → C.ACU 05:29 → C.MSN 10:42
PROVIDERS: ADMIT Plastic Surgery; ATTEND Plastic Surgery
DX: L89.159 Pressure ulcer of sacral region, unspecified stage (principal); Z96.641 Presence of right artificial hip joint; Z88.5 Allergy status to narcotic agent

== ENCOUNTER → 2017-02-19 | Outpatient (CLI) | payer BC ==
[~2017-02-19] MED LIST changes: -ASPEC81 PO; +ASPI81TA28 PO; +FEBU40TA PO; -MIRT15TA2 PO; -MULT-506 PO; -OXYC-292 PO; +OXYC1TAB3 PO; +OXYC20TA50 PO; +TRAZ50TA35 PO
--- NOTE | 2017-02-19 14:55 | DIAGNOSTIC IMAGING REPORT ---
PELVIS 1 OR 2 VIEW ROUTINE CLINICAL HISTORY: Right hip pain COMPARISON STUDY: 04/17/2016, CT scan dated 10/22/2016 FINDINGS: There are old right ischio pubic ring fractures. There is an age-indeterminate right acetabular fracture. 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 IMPRESSION: 1. Bilateral total hip arthroplasties 2. Old right ischio pubic ring fracture 3. 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 4. Orthopedic consultation is recommended Electronically signed by: Jamal Coates M.D. 02/19/2017 2:54 PM Dictated Date/Time: 02/19/2017 2:49 PM
--- NOTE | 2017-02-19 14:59 | DIAGNOSTIC IMAGING REPORT ---
RIGHT HIP UNILATERAL 2 VIEWS CLINICAL HISTORY: ACUTE PAIN OF RIGHT HIP Right pain COMPARISON: 10/22/2016 DISCUSSION: Total right hip prosthetic. As compared to the prior study, there is somewhat progressive acetabular protrusion and fragmentation of the acetabulum. Migration of the acetabular prosthetic medially as well as superiorly. There is no evidence dislocation. There is no evidence for soft tissue swelling. IMPRESSION: 1. Progressive fragmentation and acetabular protrusion of the [place] acetabulum.. 2. Mildly progressive superior migration of the right acetabular cup Electronically signed by: Sinan Hayes M.D. 02/19/2017 2:57 PM Dictated Date/Time: 02/19/2017 2:55 PM
--- NOTE | 2017-02-19 14:59 | DIAGNOSTIC IMAGING REPORT ---
SACRUM AND COCCYX 3 VIEWS CLINICAL HISTORY: Right hip pain. FINDINGS: 3 views of the sacrum and coccyx are correlated with pelvic radiograph performed concurrently on 02/19/2017 and correlated with pelvic CT dated 10/22/2016. The skeletal structures are osteopenic. There is no radiographic evidence of sacrococcygeal fracture. Sclerotic degenerative change is noted involving the sacroiliac joints. There is chronic posttraumatic deformity from healed right pubic ring fractures. Sclerotic change is also noted involving the pubic symphysis. Bilateral hip arthroplasties are partially imaged. 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 This is similar in appearance to the 10/22/2016 CT scan. IMPRESSION: 1. Generalized osteopenia with no acute bony abnormality seen involving the sacrum or coccyx. 2. Osteopenia with chronic posttraumatic and degenerative changes as above. 3. 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 Electronically signed by: Hang Molina M.D. 02/19/2017 2:58 PM Dictated Date/Time: 02/19/2017 2:55 PM
== END | disposition home or self-care (01) ==
LOC: C.RAD1850 14:28
PROVIDERS: ATTEND Family Medicine
DX: M24.7 Protrusio acetabuli (principal); Z96.643 Presence of artificial hip joint, bilateral; M53.3 Sacrococcygeal disorders, not elsewhere classified; M85.88 Other specified disorders of bone density and structure, other site; S32.591D Other specified fracture of right pubis, subsequent encounter for fracture with routine healing; S32.401D Unspecified fracture of right acetabulum, subsequent encounter for fracture with routine healing; X58.XXXD Exposure to other specified factors, subsequent encounter

== ENCOUNTER → 2017-04-27 | Outpatient (CLI) | payer BC ==
--- NOTE | 2017-04-27 09:07 | DIAGNOSTIC IMAGING REPORT ---
RIGHT SHOULDER MIN 2 VIEWS ROUTINE CLINICAL HISTORY: Right shoulder pain and decreased range of motion. COMPARISON: None FINDINGS: There is elevation of the right humeral head with narrowing of the subacromial space. There is near complete loss of the glenohumeral joint space. There is extensive osteophytosis. There is severe osteophytosis with joint space narrowing of the right acromioclavicular joint. No fracture or suspicious lesion is identified. IMPRESSION: 1. 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 2. Elevation of the right humeral head which suggests a chronic rotator cuff tear. 3. No acute fracture. Electronically signed by: Pedrito Calix M.D. 04/27/2017 9:06 AM Dictated Date/Time: 04/27/2017 9:04 AM
== END | disposition home or self-care (01) ==
LOC: C.RAD1850 08:45
PROVIDERS: ATTEND Family Medicine
DX: M25.9 Joint disorder, unspecified (principal)

== ENCOUNTER → 2017-06-11 | Outpatient (CLI) | payer BC ==
[~2017-06-11] MED LIST changes: -ASPI81TA28 PO
--- NOTE | 2017-06-12 12:19 | MAMMOGRAPHY REPORT ---
BILATERAL DIGITAL SCREENING MAMMOGRAM WITH CAD: 06/11/2017 CLINICAL HISTORY: Routine screening. Patient has no complaints. TECHNIQUE: Bilateral CC and MLO views were obtained. Current study was also evaluated with a Comput er Aided Detection (CAD) system. COMPARISON: Comparison is made to exams dated: 06/01/2015 mammogram, 06/06/2016 mammogram, 05/29/2014 ma mmogram, 05/27/2013 mammogram, 05/24/2012 mammogram, and 06/10/2011 aspiration - [facility]. BREAST COMPOSITION: There are scattered areas of fibroglandular density in both breasts. FINDINGS: There is stable asymmetry in the lateral left breast. Minimal vascular calcification and scattered benign-appearing microcalcification. No suspicious mass, architectural distortion or clust er of suspicious microcalcifications is seen. IMPRESSION: ACR BI-RADS CATEGORY 1: NEGATIVE There is no mammographic evidence of malignancy. A 1 year screening mammogram is recommended. The pa tient will receive written notification of the results. Approximately 10% of breast cancers are not detected with mammography. A negative mammographic report should not delay biopsy if a clinically suggestive mass is present. Elizabeth Layne M.D. ay/:06/11/2017 15:54:48 Laboratory Engineer: Gissell KEITA(R)(M), [facility] letter sent: Normal 1/2 BI-RADS Code: ACR BI-RADS Category 1: Negative
== END | disposition home or self-care (01) ==
LOC: C.MAMM 09:57
PROVIDERS: ATTEND Obstetrics & Gynecology
DX: Z12.31 Encounter for screening mammogram for malignant neoplasm of breast (principal)

== ENCOUNTER 2017-07-30 11:31 | Observation (INO) | payer BC ==
[~2017-07-30] VITALS: Ht 165.1 cm; Wt 57.9 kg
[~2017-07-30 11:31] MED LIST changes: -TRAZ50TA35 PO
[2017-07-30 12:24] LABS: BASO % 0.2 %; BASO ABS # 0.02 K/uL (0-0.2); COMPLETE YES; HEMATOCRIT 44.5 % (37-47); IG% 0.1 %; LYMPH ABS # 0.89 K/uL (1.2-3.4); MEAN CELL VOLUME 89.9 fL (80-100); MEAN CORPUSCULAR HEMOGLOBIN 30.1 pg (25-34); MEAN CORPUSCULAR HGB CONC 33.5 g/dl (32-36); MEAN PLATELET VOLUME 11.7 fL (7.4-10.4); MONO % 6.9 %; NEUT % 81.8 %; PLATELET COUNT 244 K/uL (130-400); RED BLOOD COUNT 4.95 M/uL (4.2-5.4)
--- NOTE | 2017-07-30 12:26 | DIAGNOSTIC IMAGING REPORT ---
CHEST ONE VIEW PORTABLE CLINICAL HISTORY: CHEST PAIN dyspnea COMPARISON STUDY: 11/23/2016 FINDINGS: The bones soft tissues and hemidiaphragms are normal. The cardiomediastinal silhouette is normal. The lungs are clear. The pulmonary vasculature is normal. IMPRESSION: Negative chest. The above report was generated using voice recognition software. It may contain grammatical, syntax or spelling errors. Electronically signed by: Sinan Hayes M.D. 07/30/2017 12:24 PM Dictated Date/Time: 07/30/2017 12:24 PM
--- NOTE | 2017-07-30 12:43 | EMERGENCY ROOM VISIT NOTE ---
History Report prepared by Donnie: Odell Keen Under the Supervision of: Dr. Randell Barraza M.D. First contact with patient: 11:46 Chief Complaint: CHEST PAIN Stated Complaint: CHEST PAINS Nursing Triage Summary: Pt comeing from doctors office (recheck from injections in arm) and stated she had CP that started 1-2 days ago. Left side, "just a little pain." Denies SOB , denies cardiac history. Takes baby asa daily. Denies radiation of pain. History of Present Illness The patient is a 77 year old female who presents to the Emergency Room with complaints of intermittent chest pain starting yesterday. The patient states that she is not currently in pain and yesterday was her last episode, and it only lasts a few seconds at a time. The patient additionally noes that she is a mildly nauseous, and she has been feeling warm. She denies any shortness of breath, vomiting, cough, congestion, urinary symptoms, or diarrhea. The patient denies any history of heart attacks or A-fib. She states that she is not currently on any blood thinners. The patient states that she had a hip surgery a year ago, though she states that she has been able to walk. Source of History: patient Onset: yesterday Position: chest Timing: intermittent Associated Symptoms: + nausea, No cough, No SOB, No vomiting, No diarrhea, No urinary symptoms Review of Systems See HPI for pertinent positives and negatives. A total of ten systems were reviewed and were otherwise negative. Past Medical & Surgical Medical Problems: (1) Acute kidney failure (2) Hypertension (3) Sacral osteomyelitis (4) Sacral ulcer (5) Sacral wound Family History Breast cancer MOTHER Colon cancer BROTHER Diabetes mellitus FATHER MOTHER Heart disease FATHER MOTHER Hypertension FATHER MOTHER Social History Smoking Status: Never Smoker Drug Use: none Marital Status: Housing Status: lives alone Occupation Status: retired Current/Historical Medications Scheduled Amlodipine (Norvasc), 5 MG PO DAILY Buspirone Hcl (Buspar), 15 MG PO TID Febuxostat (Uloric), 1 TAB PO DAILY Furosemide (Lasix), 20 MG PO QAM Metoprolol Succ (Toprol Xl) (Toprol-Xl), 25 MG PO DAILY Sitagliptin (Januvia), 50 MG PO DAILY Trazodone Hcl (Trazodone), 25 MG PO HS Scheduled PRN Oxycodone Ir (Roxicodone Ir), 10 MG PO Q4H PRN for Severe Pain Allergies Coded Allergies: Morphine (Verified Adverse Reaction, Unknown, "BECAME PALE AND NEARLY PASSED OUT WITH BENCH JEWELER MORPHINE", 01/26/17) BECAME PALE AND NEARLY PASSED-OUT WITH BENCH JEWELER MORPHINE (NO SKIN RASH, NO DIFFICULTY BREATHING), BUT HAS TOLERATED PERCOCET AND DEMEROL ON PAST ADMISSION. Physical Exam Vital Signs Date Time Temp Pulse Resp B/P (MAP) Pulse Ox O2 Delivery O2 Flow Rate FiO2 07/30/17 13:35 69 14 167/83 07/30/17 13:15 97 Room Air 07/30/17 12:46 93 18 184/71 95 Room Air 07/30/17 12:04 98 Room Air 07/30/17 11:49 70 07/30/17 11:41 Room Air 07/30/17 11:35 36.7 66 18 168/74 97 Room Air Physical Exam GENERAL: Awake, alert, well-appearing, in no distress HENT: Dry mucous membranes. Normocephalic, atraumatic. Oropharynx unremarkable. EYES: Normal conjunctiva. Sclera non-icteric. NECK: Supple. No nuchal rigidity. FROM. No JVD. RESPIRATORY: Clear to auscultation. CARDIAC: Regular rate, normal rhythm. Extremities warm and well perfused. Pulses equal. ABDOMEN: Soft, non-distended. No tenderness to palpation. No rebound or guarding. No masses. RECTAL: Deferred. MUSCULOSKELETAL: Chest examination reveals no tenderness. The back is symmetrical on inspection without obvious abnormality. There is no CVA tenderness to palpation. No joint edema. LOWER EXTREMITIES: Calves are equal size bilaterally and non-tender. No edema. No discoloration. NEURO: Normal sensorium. No sensory or motor deficits noted. SKIN: No rash or jaundice noted. Medical Decision & Procedures ER Provider Diagnostic Interpretation: Radiology results as stated below per my review and radiologist interpretation: CHEST ONE VIEW PORTABLE CLINICAL HISTORY: CHEST PAIN dyspnea COMPARISON STUDY: 11/23/2016 FINDINGS: The bones soft tissues and hemidiaphragms are normal. The cardiomediastinal silhouette is normal. The lungs are clear. The pulmonary vasculature is normal. IMPRESSION: Negative chest. The above report was generated using voice recognition software. It may contain grammatical, syntax or spelling errors. Electronically signed by: Sinan Hayes M.D. 07/30/2017 12:24 PM Dictated Date/Time: 07/30/2017 12:24 PM Laboratory Results 07/30/17 11:52 Red Blood Count 4.95, Mean Corpuscular Volume 89.9, Mean Corpuscular Hemoglobin 30.1, Mean Corpuscular Hemoglobin Concent 33.5, Mean Platelet Volume 11.7, Neutrophils (%) (Auto) 81.8, Lymphocytes (%) (Auto) 10.0, Monocytes (%) (Auto) 6.9, Eosinophils (%) (Auto) 1.0, Basophils (%) (Auto) 0.2, Neutrophils # (Auto) 7.28, Lymphocytes # (Auto) 0.89, Monocytes # (Auto) 0.61, Eosinophils # (Auto) 0.09, Basophils # (Auto) 0.02 07/30/17 11:52 Test 07/30/17 11:52 White Blood Count 8.90 K/uL (4.8-10.8) Red Blood Count 4.95 M/uL (4.2-5.4) Hemoglobin 14.9 g/dL (12.0-16.0) Hematocrit 44.5 % (37-47) Mean Corpuscular Volume 89.9 fL (80-100) Mean Corpuscular Hemoglobin 30.1 pg (25-34) Mean Corpuscular Hemoglobin Concent 33.5 g/dl (32-36) Platelet Count 244 K/uL (130-400) Mean Platelet Volume 11.7 fL (7.4-10.4) Neutrophils (%) (Auto) 81.8 % Lymphocytes (%) (Auto) 10.0 % Monocytes (%) (Auto) 6.9 % Eosinophils (%) (Auto) 1.0 % Basophils (%) (Auto) 0.2 % Neutrophils # (Auto) 7.28 K/uL (1.4-6.5) Lymphocytes # (Auto) 0.89 K/uL (1.2-3.4) Monocytes # (Auto) 0.61 K/uL (0.11-0.59) Eosinophils # (Auto) 0.09 K/uL (0-0.5) Basophils # (Auto) 0.02 K/uL (0-0.2) RDW Standard Deviation 44.0 fL (36.4-46.3) RDW Coefficient of Variation 13.3 % (11.5-14.5) Immature Granulocyte % (Auto) 0.1 % Immature Granulocyte # (Auto) 0.01 K/uL (0.00-0.02) Anion Gap 8.0 mmol/L (3-11) Est Creatinine Clear Calc Drug Dose 42.4 ml/min Estimated GFR () 62.9 Estimated GFR (Non- 54.3 BUN/Creatinine Ratio 31.6 (10-20) Calcium Level 9.9 mg/dl (8.5-10.1) Total Bilirubin 0.6 mg/dl (0.2-1) Direct Bilirubin 0.1 mg/dl (0-0.2) Aspartate Amino Transf (AST/SGOT) 18 U/L (15-37) Alanine Aminotransferase (ALT/SGPT) 19 U/L (12-78) Alkaline Phosphatase 85 U/L (45-117) Pro-B-Type Natriuretic Peptide 457 pg/ml (0-1800) Total Protein 7.3 gm/dl (6.4-8.2) Albumin 4.3 gm/dl (3.4-5.0) Lipase 236 U/L (73-393) Laboratory results reviewed by me Medications Administered Medications (Trade) Dose Ordered Sig/Lulú Route Start Time Stop Time Status Last Admin Dose Admin Sodium Chloride 1,000 ml @ 999 mls/hr Q1H1M STAT IV 07/30/17 12:59 07/30/17 13:59 DC 07/30/17 13:23 999 MLS/HR Aspirin (Aspirin Chew) 324 mg NOW STAT PO 07/30/17 13:01 07/30/17 13:03 DC 07/30/17 13:23 324 MG Sodium Chloride 1,000 ml @ 80 mls/hr [id number] IV 07/30/17 14:30 08/29/17 14:29 07/30/17 15:23 80 MLS/HR Oxycodone HCl (Roxicodone Immediate Rel Tab) 10 mg Q4H PRN PO 07/30/17 14:30 08/13/17 14:29 07/30/17 23:58 10 MG ECG Indication: chest pain Rate (beats per minute): 75 Rhythm: normal sinus Findings: LBBB, no acute ischemic change, other (Does not meet Sgarbossa criteria) Comparison ECG Date: 01/20/17 Change: LBBB is new ED Course 1146: The patient was evaluated in room A11. A complete history and physical exam was performed. 1259: Sodium Chloride 1000 ml @ 999 mls/hr IV 1301: Aspirin 324mg PO 1305: Discussed the patient's case with Dr. Walter. The patient will be evaluated for further treatment and disposition. 1322: I reevaluated the patient, and I updated her on the treatment plan. She was agreeable to the plan. Medical Decision I reviewed the patient's past medical history, medications, and the nursing notes as described above. Differential diagnoses include: ACS, PE, pneumonia, bronchitis, costochondritis , pericarditis, dissection or aneurysm. Patient is a 77-year-old woman who presents to emergency department from her PCPs office for evaluation of chest pain which he had on and off yesterday history of present illness. The patient denies any chest pain throughout today and is well appearing in no acute distress. Afebrile stable vital signs. EKG shows a new left bundle-branch block compared to December this year. Otherwise patient's troponin is negative. Chest x-ray unremarkable. Considering the patient's new left bundle-branch block and symptoms that occurred yesterday, patient would have a heart score of 5, moderate risk, thus will admit for ACS rule out and likely provocative testing with cardiology consultation. Case discussed with medicine hospitalist will admit the patient for further management. Medication Reconcilliation Current Medication List: was personally reviewed by me Blood Pressure Screening Patient's blood pressure: Elevated blood pressure Managed by the hospitalist Consults Time Called: 1301 Consulting Physician: Dr. Walter Returned Call: 1305 Discussed the patient's case with Dr. Walter. The patient will be evaluated for further treatment and disposition. Impression Primary Impression: Precordial chest pain Additional Impression: LBBB (left bundle branch block) Scribe Attestation The scribe's documentation has been prepared under my direction and personally reviewed by me in its entirety. I confirm that the note above accurately reflects all work, treatment, procedures, and medical decision making performed by me. Departure Information Dispostion Being Evaluated By Hospitalist Referrals Yuriy Henriquez MD (PCP) Patient Instructions My [facility] Problem Qualifiers
[2017-07-30 12:45] LABS: ALT/SGPT 19 U/L (12-78); BLOOD UREA NITROGEN 32 mg/dl (7-18); BUN/CREATININE RATIO 31.6 (10-20); CALCIUM 9.9 mg/dl (8.5-10.1); CARBON DIOXIDE 25 mmol/L (21-32); CHLORIDE 106 mmol/L (98-107); GLUCOSE 102 mg/dl (70-99); POTASSIUM 4.2 mmol/L (3.5-5.1); SODIUM 139 mmol/L (136-145)
[2017-07-30 12:49] LABS: ALKALINE PHOSPHATASE 85 U/L (45-117); AST/SGOT 18 U/L (15-37)
[2017-07-30] MEDS ORDERED: TRAZ50TA35 PO (12:55)
[2017-07-30] MEDS ORDERED: SODIUM CHLORIDE 0.9% 1000ML 1,000 ML IV STA (12:59)
[2017-07-30] MEDS ORDERED: ASPIRIN 81 MG CHEW PO STA (13:01)
[2017-07-30 13:15] VITALS: O2SAT 97; Ht 165.1 cm; Wt 57.9 kg
[2017-07-30] MEDS ORDERED: NITROGLYCERIN 0.4 MG SL PER TAB CHARGE SL PRN (14:30)
[2017-07-30] MEDS ORDERED: ACETAMINOPHEN 325 MG TAB PO PRN (14:30)
[2017-07-30] MEDS ORDERED: BusPIRone 15 MG TAB PO PRN (14:30)
[2017-07-30] MEDS ORDERED: ALUMINUM/MAGNESIUM/SIMETH (MAALOX MAX) 30 ML UDC PO PRN (14:30)
[2017-07-30] MEDS ORDERED: POLYETHYLENE (MIRALAX) 17 GM PACK PO PRN (14:30)
[2017-07-30] MEDS ORDERED: ONDANSETRON INJ 2 MG/ML 2 ML VIAL IV PRN (14:30)
[2017-07-30] MEDS ORDERED: MAGNESIUM HYDROXIDE SUSP 30 ML UDC PO PRN (14:30)
[2017-07-30] MEDS ORDERED: HydrALAZINE HCL 20 MG/ML VIAL IV. PRN (14:45)
--- NOTE | 2017-07-30 14:46 | History and Physical ---
History & Physical Date & Time of Service: Jul 30, 2017 at 14:32 Chief Complaint: Chest Pains Primary Care Physician: Yuriy Henriquez MD History of Present Illness Source: patient, family (nephew at bedside, daughter on phone), clinic records , hospital records Patient is a pleasant 77 y/o female, with PMHx of HTN, T2DM, hyperlipidemia, depression/anxiety, gout, and GERD, who presented to the ED from PCP's office due to new LBBB on EKG. Per patient, yesterday while at rest, she noticed left- sided chest discomfort. Discomfort did not radiate. Denies any alleviating/ aggravating factors. Last for about 5 minutes. She notes nausea with episode, but contributes it to her anxiety. She denies any increased SOB/fatigue with exercise. Today she had a PCP appointment and told Dr. Henriquez about her chest discomfort. EKG was ordered and patient was sent here. Currently, she notes she has chest discomfort in the same location as yesterday, but today it feels more like a pressure, whereas yesterday is was more intense. She denies any cardiac history. Patient denies any fever, chills, sweats, lightheadedness, dizziness, vision changes, palpitations, edema, SOB, wheezing, cough, abdominal pain, vomiting, diarrhea, urinary symptoms, melena, numbness/tingling, weakness, muscle/joint pain, depression, active bleeding, or new skin discoloration/ changes. Past Medical/Surgical History Medical Problems: HTN T2DM hyperlipidemia depression/anxiety gout GERD Surgical History: Right hip replacement x2 left hip replacement tubal ligation appendectomy cholecystectomy D&C bunion removal left cataract I&D of sacral ulcer Family History Breast cancer MOTHER Colon cancer BROTHER Diabetes mellitus FATHER MOTHER Heart disease FATHER MOTHER Hypertension FATHER MOTHER Social History Smoking Status: Former Smoker Smokeless Tobacco Use: No Alcohol Use: none Drug Use: none Marital Status: Housing status: lives alone Occupational Status: retired Immunizations History of Influenza Vaccine: No History of Tetanus Vaccine?: Yes History of Pneumococcal: Yes History of Hepatitis B Vaccine: No Multi-Drug Resistant Organisms History of MDRO: No Allergies Coded Allergies: Morphine (Verified Adverse Reaction, Unknown, "BECAME PALE AND NEARLY PASSED OUT WITH DROPPER TANK STORAGE MORPHINE", 01/26/17) BECAME PALE AND NEARLY PASSED-OUT WITH DROPPER TANK STORAGE MORPHINE (NO SKIN RASH, NO DIFFICULTY BREATHING), BUT HAS TOLERATED PERCOCET AND DEMEROL ON PAST ADMISSION. Home Medications Scheduled Amlodipine (Norvasc), 5 MG PO DAILY Buspirone Hcl (Buspar), 15 MG PO TID Febuxostat (Uloric), 1 TAB PO DAILY Furosemide (Lasix), 20 MG PO QAM Metoprolol Succ (Toprol Xl) (Toprol-Xl), 25 MG PO DAILY Sitagliptin (Januvia), 50 MG PO DAILY Trazodone Hcl (Trazodone), 25 MG PO HS Scheduled PRN Oxycodone Ir (Roxicodone Ir), 10 MG PO Q4H PRN for Severe Pain Physical Exam Vital Signs Date Time Temp Pulse Resp B/P (MAP) Pulse Ox O2 Delivery O2 Flow Rate FiO2 07/30/17 13:35 69 14 167/83 07/30/17 12:46 93 18 184/71 95 Room Air 07/30/17 12:04 98 Room Air 07/30/17 11:49 70 07/30/17 11:41 Room Air 07/30/17 11:35 36.7 66 18 168/74 97 Room Air General Appearance: no apparent distress Head: normocephalic, atraumatic Eyes: normal inspection, PERRL ENT: hearing grossly normal Neck: supple Respiratory/Chest: lungs clear, no respiratory distress, no accessory muscle use Cardiovascular: regular rate, rhythm, + systolic murmur Abdomen/GI: normal bowel sounds, non tender, soft Back: normal inspection Extremities/Musculoskelatal: no calf tenderness, no pedal edema Neurologic/Psych: alert, normal mood/affect, oriented x 3 Skin: normal color, warm/dry, no rash Diagnostics Laboratory Results Results Past 24 Hours Test 07/30/17 11:52 Range/Units White Blood Count 8.90 4.8-10.8 K/uL Red Blood Count 4.95 4.2-5.4 M/uL Hemoglobin 14.9 12.0-16.0 g/dL Hematocrit 44.5 37-47 % Mean Corpuscular Volume 89.9 80-100 fL Mean Corpuscular Hemoglobin 30.1 25-34 pg Mean Corpuscular Hemoglobin Concent 33.5 32-36 g/dl Platelet Count 244 130-400 K/uL Mean Platelet Volume 11.7 7.4-10.4 fL Neutrophils (%) (Auto) 81.8 % Lymphocytes (%) (Auto) 10.0 % Monocytes (%) (Auto) 6.9 % Eosinophils (%) (Auto) 1.0 % Basophils (%) (Auto) 0.2 % Neutrophils # (Auto) 7.28 1.4-6.5 K/uL Lymphocytes # (Auto) 0.89 1.2-3.4 K/uL Monocytes # (Auto) 0.61 0.11-0.59 K/uL Eosinophils # (Auto) 0.09 0-0.5 K/uL Basophils # (Auto) 0.02 0-0.2 K/uL RDW Standard Deviation 44.0 36.4-46.3 fL RDW Coefficient of Variation 13.3 11.5-14.5 % Immature Granulocyte % (Auto) 0.1 % Immature Granulocyte # (Auto) 0.01 0.00-0.02 K/uL Sodium Level 139 136-145 mmol/L Potassium Level 4.2 3.5-5.1 mmol/L Chloride Level 106 98-107 mmol/L Carbon Dioxide Level 25 21-32 mmol/L Anion Gap 8.0 3-11 mmol/L Blood Urea Nitrogen 32 7-18 mg/dl Creatinine 1.00 0.60-1.20 mg/dl Est Creatinine Clear Calc Drug Dose 42.4 ml/min Estimated GFR () 62.9 Estimated GFR (Non- 54.3 BUN/Creatinine Ratio 31.6 10-20 Random Glucose 102 70-99 mg/dl Calcium Level 9.9 8.5-10.1 mg/dl Total Bilirubin 0.6 0.2-1 mg/dl Direct Bilirubin 0.1 0-0.2 mg/dl Aspartate Amino Transf (AST/SGOT) 18 15-37 U/L Alanine Aminotransferase (ALT/SGPT) 19 12-78 U/L Alkaline Phosphatase 85 45-117 U/L Troponin I < 0.015 0-0.045 ng/ml Pro-B-Type Natriuretic Peptide 457 0-1800 pg/ml Total Protein 7.3 6.4-8.2 gm/dl Albumin 4.3 3.4-5.0 gm/dl Lipase 236 73-393 U/L Diagnostic Radiology CHEST ONE VIEW PORTABLE CLINICAL HISTORY: CHEST PAIN dyspnea COMPARISON STUDY: 11/23/2016 FINDINGS: The bones soft tissues and hemidiaphragms are normal. The cardiomediastinal silhouette is normal. The lungs are clear. The pulmonary vasculature is normal. IMPRESSION: Negative chest. The above report was generated using voice recognition software. It may contain grammatical, syntax or spelling errors. Electronically signed by: Sinan Hayes M.D. 07/30/2017 12:24 PM Dictated Date/Time: 07/30/2017 12:24 PM The status of this report is Signed. Draft = Not yet reviewed or approved by Radiologist. Signed = Reviewed and approved by Radiologist. EKG JESUS VENTURA ID:[id number] 30-JUL-2017 11:44:46 [facility] Normal sinus rhythm Left axis deviation Left bundle branch block Abnormal ECG When compared with ECG of 20-JAN-2017 15:37, Left bundle branch block is now Present 25mm/s 10mm/mV 150Hz 8.0 SP2 12SL 241 [place]: 10 Referred by: Referred Self Unconfirmed Vent. rate 75 BPM OH interval 154 ms QRS duration 146 ms QT/QTc 438/489 ms P-R-T axes 56 -52 86 1940 (77 yr) Female 0lb Room:[facility] Loc:15 [employer] Leader:WIL[place] ind: Impression Assessment and Plan Patient is a pleasant 77 y/o female, with PMHx of HTN, T2DM, hyperlipidemia, depression/anxiety, gout, and GERD, who presented to the ED from PCP's office due to new LBBB on EKG. New LBBB on EKG, ACS r/o : - Admit to tele for cardiac monitoring - Trend cardiac enzymes- initial enzymes negative - EKG w/ new LBBB; follow EKG QAM and PRN CP - O2 protocol - ASA 81 mg daily, Metoprolol 25 mg daily - Consult cardiology, appreciate recommendations HTN: - Norvasc 5 mg daily - Hydralazine 10 mg IV q6 hrs PRN sbp >180 or dbp >100 T2DM: - Hold Januvia - BSG ACHS and sliding insulin scale - Check HgbA1C h/o HDL: - Currently on no medications - Check lipid panel Anxiety/depression: Buspar 15 mg TID PRN Chronic R hip pain: Oxycodone 10 mg q4 hrs PRN Gout: Uloric 40 mg daily Insomnia: Trazodone 15 mg HS GI prophylaxis: Protonix 40 mg daily DVT prophylaxis: Heparin SQ BID Code Status: LEVEL I, FULL Dispo: From home, lives alone- perinatal social worker consulted Level of Care Telemetry Resuscitation Status FULL RESUSCITATION VTE Prophylaxis VTE Risk Assessment Done? Y/N: Yes Risk Level: Moderate Given or contraindicated: Unfractionated heparin SQ, T.E.D. Stockings, SCD's Reviewed: Pt Seen/Exam by Me History Pt states she feels fine at this time. She was having increased hip pain earlier, but took a pain bill and is feeling better. No further chest pain. Pt states that her PCP appt this AM was her regularly scheduled appt and she would not have made an appt specifically for the chest pain she had yesterday. She has felt her usual lately otherwise. No SOB or LE swelling. Eating well. Agree with HPI/ROS as noted. General Appearance: WD/WN, no apparent distress Respiratory: normal breath sounds, no respiratory distress Cardiovascular: normal peripheral pulses, regular rate, rhythm Gastrointestinal: non tender, soft Extremities: non-tender, no pedal edema Neurologic/Psychiatric: alert, normal mood/affect, oriented x 3 Skin Characteristics: normal color, warm/dry Assessment/Plan Agree with plan as outlined above Pt admitted for chest pain and new LBBB Neg trop, serials pending Stress ECHO if trops neg Cards c/s pending
[2017-07-30] MEDS: OXYCODONE HCL IR 5 MG TAB (IMMEDIATE RELEASE) PO PRN ×3 (14:57→23:58)
[2017-07-30] MEDS ORDERED: DEXTROSE 50% 50 ML SYR IV PRN (15:00)
[2017-07-30] MEDS ORDERED: GLUCOSE 40% GEL 15 GM TUBE PO PRN (15:00)
[2017-07-30] MEDS ORDERED: GLUCOSE 10 TABS/TUBE PO PRN (15:00)
[2017-07-30] MEDS ORDERED: GLUCAGON FOR INJ 1 MG VIAL SQ PRN (15:00)
[2017-07-30] MEDS ORDERED: IV FLUIDS COMPLETED PRN (15:00)
[2017-07-30] MEDS: SODIUM CHLORIDE 0.9% 1000ML 1,000 ML IV SCH (15:23)
[2017-07-30 16:00] VITALS: BP 185/71; PULSE 67; TEMP 36.9; O2SAT 98
[2017-07-30] MEDS: INSULIN ASPART 100 UNITS/ML 3 ML PEN SC SCH ×2 (16:15→21:00)
[2017-07-30 16:17] VITALS: BP 164/64; PULSE 64
[2017-07-30 19:26] VITALS: BP 152/68; PULSE 64; TEMP 36.9; O2SAT 96
[2017-07-30 20:00] VITALS: O2SAT 98
[2017-07-30] MEDS ORDERED: TRAZODONE HCL 50 MG TAB PO SCH (21:00)
[2017-07-30] MEDS: HEPARIN SOD 5000 UNIT/0.5 ML CARP SQ SCH (21:09)
[2017-07-30 23:59] VITALS: O2SAT 98
[2017-07-31] VITALS: BP 143/72; PULSE 65; TEMP 36.9; O2SAT 95
[2017-07-31] MEDS: SODIUM CHLORIDE 0.9% 1000ML 1,000 ML IV SCH ×2 (03:00→15:30)
[2017-07-31 04:00] VITALS: BP 151/77; PULSE 62; TEMP 36.7; O2SAT 97
[2017-07-31] MEDS: OXYCODONE HCL IR 5 MG TAB (IMMEDIATE RELEASE) PO PRN ×3 (04:05→13:01)
[2017-07-31 04:41] LABS: BLOOD UREA NITROGEN 23 mg/dl (7-18); BUN/CREATININE RATIO 24.6 (10-20); CALCIUM 8.3 mg/dl (8.5-10.1); CARBON DIOXIDE 24 mmol/L (21-32); CHLORIDE 112 mmol/L (98-107); CREATININE 0.92 mg/dl (0.60-1.20); GLUCOSE 106 mg/dl (70-99); MAGNESIUM 1.8 mg/dl (1.8-2.4); POTASSIUM 3.8 mmol/L (3.5-5.1); SODIUM 141 mmol/L (136-145)
[2017-07-31 04:46] LABS: CHOLESTEROL 140 mg/dl (0-200); CHOLESTEROL/HDL RATIO 3.9; HDL CHOLESTEROL 36 mg/dl; LDL CHOLESTEROL CALCULATED 86 mg/dl; TRIGLYCERIDES 88 mg/dl (0-150); VERY LOW DENSITY LIPOPROT CALC 18 mg/dl
[2017-07-31 05:51] LABS: ESTIMATED AVERAGE GLUCOSE 117 mg/dl; HA1C FLAG Normal (Normal)
[2017-07-31] MEDS: INSULIN ASPART 100 UNITS/ML 3 ML PEN SC SCH ×3 (07:00→16:15)
[2017-07-31 08:00] VITALS: BP 145/72; PULSE 67; TEMP 36.4; O2SAT 95
[2017-07-31] MEDS: HEPARIN SOD 5000 UNIT/0.5 ML CARP SQ SCH (08:01)
[2017-07-31] MEDS ORDERED: ASPIRIN 81 MG ECTAB PO SCH (09:00)
[2017-07-31] MEDS ORDERED: FEBUXOSTAT 40 MG TAB PO SCH (09:00)
[2017-07-31] MEDS ORDERED: AMLODIPINE BESYLATE 5 MG TAB PO SCH (09:00)
[2017-07-31] MEDS ORDERED: PANTOprazole SOD 40 MG TAB PO SCH (09:00)
[2017-07-31] MEDS ORDERED: METOPROLOL SUCC 25MG EXT REL TAB PO SCH (09:00)
[2017-07-31 11:20] VITALS: BP 147/71; PULSE 65; TEMP 36.8; O2SAT 94
--- NOTE | 2017-07-31 11:20 | CARDIOLOGY CONSULTATION ---
DATE OF CONSULTATION: 07/31/2017 TIME: 10:35 a.m. CONSULTING PHYSICIAN: Dr. Bentley. REASON FOR CONSULTATION: Left bundle branch block. HISTORY OF PRESENT ILLNESS: Ms. Youssef is a pleasant 77-year-old female with a history significant for hypertension, type 2 diabetes, and dyslipidemia, who presented to [facility] Emergency Department from her PCP's office after being diagnosed with left bundle branch block on an ECG. She was seen in Dr. Henriquez's office for a routine followup following recent shoulder injection. She described him chest discomfort, which was the day prior and an ECG was done, which demonstrated left bundle branch block, which was apparently a new finding. She was sent to the Emergency Department. She had one episode of chest pain, the day prior to presentation and describes it as a left sternal border chest pain, which was very slight, occurring only at rest and lasting approximately 1 minute before spontaneously resolving. There was no radiation of the pain and there were no other associated symptoms. The pain has not recurred. Although, she does not exercise, she is very active doing housework around her home and has no chest pain or shortness of breath with these activities. She denies syncope, near syncope, palpitations, orthopnea, PND or pitting edema. She thinks that perhaps there is some right leg swelling, but not distally following multiple right hip surgeries. She had a right hip replacement revision in 2016 and this does limit her exercise. There may be further procedures needed to be done at some point. She denies melena, hematochezia, hematuria, or other bleeding. She is currently asymptomatic in regards to chest pain, having only that one episode while sitting at rest. REVIEW OF SYSTEMS: As above and review of systems is otherwise negative/unremarkable. PAST MEDICAL HISTORY: 1. Hypertension. 2. Type 2 diabetes. 3. Dyslipidemia. 4. Depression/anxiety. 5. Gout. 6. GERD. 7. Osteomyelitis. 8. Right hip replacement and a more recent right hip replacement revision in 2016. 9. Left hip replacement. 10. Knee surgery. 11. Tubal ligation. 12. Appendectomy. 13. Cholecystectomy. 14. Cataract surgery. 15. I&D of sacral ulcer. HOME MEDICATIONS: Include Norvasc 5 mg daily, Lasix 20 mg daily, metoprolol succinate 25 mg daily, Januvia 50 mg daily, and trazodone 25 mg at bedtime. HOSPITAL MEDICATIONS: Include aspirin 81 mg daily, Norvasc 5 mg daily, BuSpar 15 mg p.o. t.i.d. p.r.n., heparin 5000 units subQ q. 12 hours, metoprolol succinate 25 mg daily, and Protonix 40 mg daily. ALLERGIES AND INTOLERANCES: MORPHINE. SOCIAL HISTORY: She smoked briefly in 1972, but none since. Rare alcohol. She is and lives alone with her cat. She has 1 daughter, who is in the [place] area. No grandchildren. 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 FAMILY HISTORY: Mother and father with heart disease, hypertension, and diabetes. PHYSICAL EXAMINATION: VITAL SIGNS: Temperature 36.4 degrees, heart rate 67 beats per minute, respiratory rate 18, blood pressure 145/72 mmHg, and oxygen saturation 95% on room air. Weight 57.9 kg. GENERAL: In no acute distress. She is alert and oriented. HEENT: Anicteric sclerae. NECK: No appreciable JVD. No bruits. Normal carotid upstrokes bilaterally. CARDIAC EXAM: PMI nondisplaced. There is no ventricular heave. Regular, normal S1 and S2. No audible murmurs, rubs or gallops. LUNGS: Clear to auscultation bilaterally without wheezes, rales or rhonchi. ABDOMEN: Soft, nontender, and nondistended. Normoactive bowel sounds. No bruits noted. EXTREMITIES: No cyanosis or pitting edema. 2+ radial pulses bilaterally. 2+ dorsalis pedis pulses bilaterally. No palpable cords. PSYCHIATRIC: Affect appears appropriate. CHEST: Nontender to palpation. No rash or mass noted at the site of her prior chest pain. ECGs personally reviewed. ECG on 07/30/2017 and 11:44, sinus rhythm at 75 beats per minute with left bundle branch block. Repeat ECG on 07/30/2017 at 13:55, sinus rhythm. Left bundle branch block no longer present. Repeat ECG on 07/31/2017 at 06:45 a.m., sinus rhythm, left bundle branch block, 66 beats per minute. Telemetry personally reviewed. Sinus rhythm with intermittent left bundle branch block. LABORATORY DATA: White blood cell count 8.9, hemoglobin 14.9, and platelets 244. Sodium 141, potassium 3.8, BUN 23, creatinine 0.92 and magnesium 1.8. Troponin undetectable x3. LDL 86, total cholesterol 140, triglycerides 88, and HDL 36. ProBNP 457. Chest x-ray performed on 07/30/2017, personally reviewed. No obvious infiltrate or findings concerning for CHF. This was interpreted by radiology as no acute findings. ASSESSMENT AND PLAN: 1. Chest pain: Atypical chest pain, lasting only 1 minute, occurring at rest, and no exertional symptoms. Given the fact that she has newly diagnosed intermittent left bundle branch block, a nonurgent myocardial perfusion study can be performed. This will not be able to be done today as she had consumed coffee earlier this morning and therefore, this can be done as an outpatient and will be arranged through the office. 2. Left bundle branch block: She has intermittent left bundle branch block. It does not appear to be definitively a rate related phenomenon as it does appear to occur at times with a slower heart rate on telemetry. We discussed the diagnosis in detail. Echocardiogram recommended and ordered. Myocardial perfusion study done for symptoms as noted above. 3. Hypertension: Blood pressure is mildly elevated. Treatment as per primary service. Can adjust medications as appropriate. 4. Dyslipidemia: She does not appear to be in any specific therapy as an outpatient. This can be followed by her PCP. 5. Disposition: Echocardiogram pending. Myocardial perfusion study can be done as an outpatient. Thank for allowing me to participate in care of Ms. Youssef. Sincerely,
--- NOTE | 2017-07-31 14:16 | Discharge Instructions ---
Discharge Instructions Date of Service Jul 31, 2017. Admission Reason for Admission: LBBB Discharge Discharge Diagnosis / Problem: Left bundle branch block, atypical chest pain Discharge Goals Goal(s): Improve function, Diagnostic testing (nuclear stress test) Activity Recommendations Activity Limitations: resume your previous activity Lifting Limitations: none Exercise/Sports Limitations: as tolerated May Resume Sexual Activity: when tolerated Shower/Bathe: no limitations Driving or Machine Use: no limitations . Instructions / Follow-Up Instructions / Follow-Up Medications: no changes Dr. Shelton's office will call you to set up a nuclear stress test to be done some time next week. Current Hospital Diet Patient's current hospital diet: AHA Diet (Heart Healthy), Diabetes Type 2 Diet Discharge Diet Recommended Diet: AHA Diet (Heart Healthy), Diabetes Type 2 Diet Pending Studies Studies pending at discharge: no Laboratory Results Hemoglobin A1c Test 07/31/17 03:45 Range/Units Estimated Average Glucose 117 mg/dl Hemoglobin A1c 5.7 H 4.5-5.6 % Lipid Panel Test 07/31/17 03:45 Range/Units Triglycerides Level 88 0-150 mg/dl Cholesterol Level 140 0-200 mg/dl HDL Cholesterol 36 mg/dl Cholesterol/HDL Ratio 3.9 LDL Cholesterol, Calculated 86 mg/dl Medical Emergencies . Who to Call and When: Medical Emergencies: If at any time you feel your situation is an emergency, please call 911 immediately. . Non-Emergent Contact Non-Emergency issues call your: Primary Care Provider, Fire Protection Inspector Call Non-Emergent contact if: your pain is worsening, your pain is concerning you, you have any medication questions . . "Provider Documentation" section prepared by Norbert Bentley. . VTE Core Measure Inpt VTE Proph given/why not?: Unfractionated heparin SQ [place] Drug Monitoring Program Search Results: no issues identified
--- NOTE | 2017-07-31 14:30 | Cardiology Consultation ---
Cardiology Consultation Date of Consultation: Jul 31, 2017. Attending Physician: Dr. Shelton Pt evaluation today including: conversation w/ patient, physical exam, chart review, lab review, review of studies, conversation w/ attending History of Present Illness This is a PGY1 Resident note on the cardiology service. Please see attending's note for official consult discussion & recommendations 77yo female was referred from her PCM's office yest (07Sep) to the ED for an abnormal EKG (new LBBB) and reports of very rare chest pain. Pt says she was in the clinic for ongoing separate evaluation and denied any acute chest concerns. During discussion there, she noted some fleeting chest sx, so an EKG was performed, prompting eval. Pt says the day before (06Sep) she had some left parasternal "pain" in the late AM that day, lasting no more than a minute, and at the time "didn't think anything of it", equating it to normal aches and pains in life. She says on ROS she had a "nervous" feeling that afternoon, perhaps slight nausea, but no V/D or abd discomfort. She denies any prior hx of similar chest "pains", any concurrent SOB, dizziness, LOC, known bleeding issues (melena, hematochezia, hematuria), recent fevers or illness or cough, palpitations, or acute leg swelling (though she says her right leg will periodically get more swollen s/p her second right hip revision surgery). Her exercise is mostly housework, as her mobility is a little limited by ongoing right hip pain (pt says is pending a third surgery since the revision of a ITALO in Jun 2016 "didn't hold") and denies any CP or SOB with that. Denies any prior known heart issues or cardiac workup. Past Medical/Surgical History PMH: - Acute kidney failure (per pt, unknown to her) - Hypertension - HLD - Depression / anxiety - Gout - GERD - Sacral osteomyelitis - Sacral ulcer PSH: - Right hip replacement, revision of same (Jun 2016) - Left hip replacement - Left knee replacement - Tubal ligation - Appendectomy - Cholecystectomy - D&C - Bunionectomy - Left cataract - I&D sacral ulcer (January 2017) - Breast mass biopsy Family History Breast cancer MOTHER Colon cancer BROTHER Diabetes mellitus FATHER MOTHER Heart disease FATHER MOTHER Hypertension FATHER MOTHER Social History Smoking Status: Former Smoker History of Alcohol Use: Yes (rarely) Smoking Status: Smoked < 1 year around 1972, none since. 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[employer]) Review of Systems Constitutional: No fever, No chills Respiratory: No cough, No wheezing, No shortness of breath Cardiac: + chest pain (single episode as described), No edema Abdomen: + nausea (single episode as described), No vomiting, No diarrhea Female : No dysuria Neurologic: No weakness, No numbness/tingling, No vertigo Allergies Coded Allergies: Morphine (Verified Adverse Reaction, Unknown, "BECAME PALE AND NEARLY PASSED OUT WITH VAMP SEAMER MORPHINE", 01/26/17) BECAME PALE AND NEARLY PASSED-OUT WITH VAMP SEAMER MORPHINE (NO SKIN RASH, NO DIFFICULTY BREATHING), BUT HAS TOLERATED PERCOCET AND DEMEROL ON PAST ADMISSION. Medications Current Inpatient Medications Medications (Trade) Dose Ordered Sig/Lulú Route Start Time Stop Time Status Last Admin Dose Admin Heparin Sodium (Porcine) (Heparin Sq 5000 Unit/0.5ml) 5,000 unit Q12 SQ 07/30/17 21:00 08/29/17 20:59 07/31/17 08:01 5,000 UNIT Acetaminophen (Tylenol Tab) 650 mg Q4H PRN PO 07/30/17 14:30 08/29/17 14:29 Al Hydrox/Mg Hydrox/Simethicone (Maalox Max Susp) 15 ml Q4H PRN PO 07/30/17 14:30 08/29/17 14:29 Magnesium Hydroxide (Milk Of Magnesia Susp) 30 ml Q12H PRN PO 07/30/17 14:30 08/29/17 14:29 Ondansetron HCl (Zofran Inj) 4 mg Q6H PRN IV 07/30/17 14:30 08/29/17 14:29 Nitroglycerin (Nitrostat Tab) 0.4 mg UD PRN SL 07/30/17 14:30 08/29/17 14:29 Aspirin (Ecotrin Tab) 81 mg QAM PO 07/31/17 09:00 08/30/17 08:59 07/31/17 07:58 81 MG Polyethylene (Miralax Powder Packet) 17 gm DAILY PRN PO 07/30/17 14:30 08/29/17 14:29 Sodium Chloride 1,000 ml @ 80 mls/hr [id number] IV 07/30/17 14:30 08/29/17 14:29 07/31/17 03:00 80 MLS/HR Amlodipine Besylate (Norvasc Tab) 5 mg DAILY PO 07/31/17 09:00 08/30/17 08:59 07/31/17 07:59 5 MG Buspirone HCl (BusPAR TAB) 15 mg TID PRN PO 07/30/17 14:30 08/29/17 14:29 Metoprolol Succinate (Toprol Xl Tab) 25 mg DAILY PO 07/31/17 09:00 08/30/17 08:59 07/31/17 07:58 25 MG Oxycodone HCl (Roxicodone Immediate Rel Tab) 10 mg Q4H PRN PO 07/30/17 14:30 08/13/17 14:29 07/31/17 13:01 10 MG Trazodone HCl (Desyrel Tab) 25 mg HS PO 07/30/17 21:00 08/29/17 20:59 07/30/17 21:06 25 MG Febuxostat (Uloric) 40 mg DAILY PO 07/31/17 09:00 08/30/17 08:59 07/31/17 07:58 40 MG Insulin Aspart (novoLOG ASPART) SLIDING SCALE G... ACHS SC 07/30/17 16:00 08/29/17 15:59 Pantoprazole Sodium (Protonix Tab) 40 mg QAM PO 07/31/17 09:00 08/30/17 08:59 07/31/17 07:59 40 MG Miscellaneous (Iv Fluids Completed) 1 ea PRN PRN N/A 07/30/17 15:00 07/30/18 14:59 Hydralazine HCl (HydrALAZINE INJ) 10 mg Q6H PRN IV. 07/30/17 14:45 08/29/17 14:44 Glucose (Glucose 40% Gel) 15-30 GRAMS 15 GRAMS... UD PRN PO 07/30/17 15:00 08/29/17 14:59 Glucose (Glucose Chew Tab) 4-8 Tablets 4 Tabl... UD PRN PO 07/30/17 15:00 08/29/17 14:59 Dextrose (Dextrose 50% 50ML Syringe) 25-50ML OF 50% DW IV FOR... UD PRN IV 07/30/17 15:00 08/29/17 14:59 Glucagon (Glucagon Inj) 1 mg UD PRN SQ 07/30/17 15:00 08/29/17 14:59 Physical Exam Vital Signs Past 12 Hours Date Time Temp Pulse Resp B/P (MAP) Pulse Ox O2 Delivery O2 Flow Rate FiO2 07/31/17 12:36 Room Air 07/31/17 11:20 36.8 65 18 147/71 (96) 94 Room Air 07/31/17 08:00 Room Air 07/31/17 08:00 36.4 67 18 145/72 (96) 95 Room Air 07/31/17 04:00 36.7 62 20 151/77 (101) 97 Room Air Constitutional: General Apperance: heathly-appearing Level of Distress: NAD Ambulation: ambulating normally Lungs: Respiratory effort: no dyspnea Auscultation: breath sounds normal, no wheezing, no rales/crackles Cardiovascular: Heart Auscultation: RRR, normal S1, normal S2 Peripheral Pulses: Bruits: none appreciated Carotid Pulse: normal on the left, normal on the right Radial Pulse: normal on the left, normal on the right Dorsalis Pedis Pulse: normal on the left, normal on the right Abdomen: Inspection & Palpation: soft, non-distended, no tenderness, guarding & rebound Data Laboratory Results: Last 24 Hours Test 07/30/17 16:15 07/30/17 19:40 07/30/17 20:22 07/31/17 03:45 Bedside Glucose 78 mg/dl 107 mg/dl Creatine Kinase MB 0.9 ng/ml 1.0 ng/ml Creatine Kinase MB Ratio Troponin I < 0.015 ng/ml < 0.015 ng/ml Sodium Level 141 mmol/L Potassium Level 3.8 mmol/L Chloride Level 112 mmol/L Carbon Dioxide Level 24 mmol/L Anion Gap 5.0 mmol/L Blood Urea Nitrogen 23 mg/dl Creatinine 0.92 mg/dl Est Creatinine Clear Calc Drug Dose 46.1 ml/min Estimated GFR () 69.6 Estimated GFR (Non- 60.1 BUN/Creatinine Ratio 24.6 Random Glucose 106 mg/dl Estimated Average Glucose 117 mg/dl Hemoglobin A1c 5.7 % Calcium Level 8.3 mg/dl Magnesium Level 1.8 mg/dl Triglycerides Level 88 mg/dl Cholesterol Level 140 mg/dl HDL Cholesterol 36 mg/dl LDL Cholesterol, Calculated 86 mg/dl VLDL Cholesterol, Calculated 18 mg/dl Cholesterol/HDL Ratio 3.9 Test 07/31/17 06:47 Bedside Glucose 92 mg/dl ED 07Sep CXR one view portable: Negative chest EKG 07Sep at 1144: Sinus rate 75, LBBB (new), no acute ischemic change EKG 07Sep at 1355: Sinus rate 66, LBBB resolved, no acute ischemic change EKG 08Sep at 0645: Sinus rate 66, LBBB Assessment & Plan 77yo female sent from clinic with apparently new LBBB and report of single episode of chest "pain" the day prior. No reported hx of ongoing CP or discomfort, SOB, dizziness, bleeding, acute leg swelling, or thoracic-related functional limitations. No reported repeat chest "pain" the day of EKG or subsequently as inpt. Plan: - Chest sx sound atypical for ACS. TnI x 2 negative as well. Was very transient, so can be symptomatically-observed. - Given new LBBB, would benefit from echo (plan to get that today) and a non- urgent myocardial perfusion scan (not today given caffeine intake this morning) . Latter can be arranged as outpt. - HTN and HLD management per PCM. Discussed all the above on attending rounds this morning. Please see his consult for further discussion and official recommendations. ELENA, PGY1 Family Medicine, Cardiology Service CARDIOLOGY ATTENDING ADDENDUM: SEE MY NOTE. Resident Tracking Resident Involvement: Resident Care Provided Care Provided: Adult Hospital Medicine (cardiology consult)
[2017-07-31 16:04] VITALS: BP 183/66; PULSE 73; TEMP 36.7; O2SAT 98
[2017-07-31 17:50] VITALS: BP 183/66; PULSE 73; TEMP 36.7; O2SAT 98
--- NOTE | 2017-07-31 18:52 | ECHOCARDIOGRAM REPORT ---
*NOTICE TO RECEIVING [employer] This information is strictly Confidential and protected under [place] law. [place] law prohibits you from making any further disclosure of this information unless further disclosure is expressly permitted by the written consent of the person to whom it pertains or is authorized by law. A general authorization for the release of medical or other information is not sufficient for this purpose. Hospital accepts no responsibility if the information is made available to any other person, INCLUDING THE PATIENT. Interpretation Summary * Name: JESUS VENTURA Study Date: 07/31/2017 01:24 PM BP: 147/71 mmHg * Patient Location: .2T\S\E215\S\1 HR: 65 * : 1940 (M/d/yyyy) Gender: Female Height: 65 in * Age: 77 yrs Ethnicity: CA Weight: 127 lb * Ordering Physician: Lance Pace. * Referring Physician: Self, Referred * Performed By: Nirmala Barba RDCS * * Reason For Study: CHEST PAIN * BSA: 1.6 m2 * -- Conclusions -- * 1. Normal left ventricular size and systolic function. EF 60-65%. No regional wall motion abnormalities. Septal motion consistent with bundle branch block. No left ventricular hypertrophy. Type 1 diastolic dysfunction. * 2. The left atrium is mildly dilated. * 3. Aortic valve sclerosis mild, without significant aortic valvular stenosis. Trace aortic regurgitation. * 4.There is mild to moderate tricuspid regurgitation. * 5. Mildly elevated right ventricular systolic pressure; 42mmHg. * 6. No prior study available for comparison. Procedure Details * A complete two-dimensional transthoracic echocardiogram was performed (2D, M-mode, Doppler and color flow Doppler). Left Ventricle * Normal left ventricular size and systolic function. EF 60-65%. No regional wall motion abnormalities. Septal motion consistent with bundle branch block. No left ventricular hypertrophy. Type 1 diastolic dysfunction. Right Ventricle * The right ventricle is normal in size and function. * The right ventricular systolic function is normal as assessed by tricuspid annular plane systolic excursion (TAPSE) (normal >1.5 cm). Atria * The left atrium is mildly dilated. * Right atrial size is normal. * There is no evidence of atrial septal defect, but resolution does not allow assessment for a patent foramen ovale. Mitral Valve * The mitral valve is grossly normal. * There is no mitral valve stenosis. * There is trace mitral regurgitation. Tricuspid Valve * The tricuspid valve is not well visualized, but is grossly normal. * There is no tricuspid stenosis. * There is mild to moderate tricuspid regurgitation. Aortic Valve * Aortic valve sclerosis mild, without significant aortic valvular stenosis. * No hemodynamically significant valvular aortic stenosis. * Trace aortic regurgitation. Pulmonic Valve * The pulmonary valve is inadequately visualized, but the Doppler data is adequate for interpretation. * There is no pulmonic valvular stenosis. * There is no significant pulmonary regurgitation. Great Vessels * The aortic root is normal size. Pericardium/Pleural * There is no pericardial effusion. Great Vessels * Normal inferior vena cava size and collapsability with sniff indicates a normal right atrial pressure of 3 mmHg MMode 2D Measurements and Calculations IVSd 1.1 cm IVSs 1.4 cm LVIDd 3.9 cm LVIDs 2.6 cm LVPWd 1.0 cm LVPWs 1.7 cm IVS/LVPW 1.1 FS 33.7 % EDV(Teich) 67.3 ml ESV(Teich) 24.8 ml EF(Teich) 63.2 % EDV(cubed) 60.9 ml ESV(cubed) 17.7 ml EF(cubed) 70.9 % % IVS thick 25.9 % % LVPW thick 66.9 % LV mass(C)d 137.1 grams LV mass(C)dI 84.1 grams/m\S\2 LV mass(C)s 143.1 grams LV mass(C)sI 87.7 grams/m\S\2 SV(Teich) 42.5 ml SI(Teich) 26.1 ml/m\S\2 SV(cubed) 43.2 ml SI(cubed) 26.5 ml/m\S\2 Ao root diam 2.9 cm Ao root area 6.5 cm\S\2 LA dimension 3.7 cm LA/Ao 1.3 LVOT diam 2.0 cm LVOT area 3.1 cm\S\2 Doppler Measurements and Calculations MV E max rambo 76.8 cm/sec MV A max rambo 81.1 cm/sec MV E/A 0.95 MV dec time 0.27 sec Ao V2 max 193.0 cm/sec Ao max PG 14.9 mmHg Ao max PG (full) 10.6 mmHg Ao V2 mean 139.1 cm/sec Ao mean PG 8.5 mmHg Ao mean PG (full) 5.8 mmHg Ao V2 VTI 42.5 cm ARTHUR(I,A) 1.8 cm\S\2 ARTHUR(I,D) 1.8 cm\S\2 ARTHUR(V,A) 1.7 cm\S\2 ARTHUR(V,D) 1.7 cm\S\2 AI max rambo 396.9 cm/sec AI max PG 63.0 mmHg AI dec slope 169.4 cm/sec\S\2 AI P1/2t 686.1 msec LV V1 max PG 4.3 mmHg LV V1 mean PG 2.6 mmHg LV V1 max 103.7 cm/sec LV V1 mean 77.5 cm/sec LV V1 VTI 25.1 cm SV(Ao) 274.3 ml SI(Ao) 168.2 ml/m\S\2 SV(LVOT) 78.3 ml SI(LVOT) 48.0 ml/m\S\2 TR max rambo 310.6 cm/sec RVSP(TR) 41.9 mmHg RAP systole 3.0 mmHg
--- NOTE | 2017-08-02 07:35 | Discharge Summary ---
Discharge Summary Date of Service Jul 31, 2017. Discharge Summary Admission Date: Jul 30, 2017 at 14:30 Discharge Date: Jul 31, 2017 Discharge Disposition: Home Principal Diagnosis: Atypical chest pain Problems/Secondary Diagnoses: New LBBB HTN Immunizations: Have You Had Influenza Vaccine: No History of Tetanus Vaccine?: Yes History of Pneumococcal: Yes History of Hepatitis B Vaccine: No Procedures: Echocardiogram Consultations: Cardiology Medication Reconciliation Continued Medications: Amlodipine (Norvasc) 5 Mg Tab 5 MG PO DAILY, TAB Buspirone Hcl (Buspar) 15 Mg Tab 15 MG PO TID, TAB Febuxostat (Uloric) 40 Mg Tab 1 TAB PO DAILY for 90 Days, #90 TAB 1 Refill Furosemide (Lasix) 20 Mg Tab 20 MG PO QAM, TAB Metoprolol Succ (Toprol Xl) (Toprol-Xl) 25 Mg Tabcr 25 MG PO DAILY, #30 TAB Oxycodone Ir (Roxicodone Ir) 5 Mg Tab 10 MG PO Q4H PRN for Severe Pain, TAB Sitagliptin (Januvia) 50 Mg Tab 50 MG PO DAILY, TAB Trazodone Hcl (Trazodone) 50 Mg Tab 25 MG PO HS, TAB Discharge Exam Patient feeling well, no chest pain. Labs stable. Evaluated by cardiology, plan for outpatient nuclear stress test. Review of Systems: Constitutional: No fever, No chills, No sweats, No weight loss, No weakness , No fatigue, No problem reported Eyes: No worsening of vision, No eye pain, No redness, No discharge, No diplopia, No problem reported ENT: No hearing loss, No unusual epistaxis, No nasal symptoms, No sore throat, No tinnitus, No dental problems, No trouble swallowing, No problem reported Respiratory: No cough, No sputum, No wheezing, No shortness of breath, No dyspnea on exertion, No dyspnea at rest, No hemoptysis, No problem reported Cardiovascular: No chest pain, No orthopnea, No PND, No edema, No claudication, No palpitations, No problem reported Abdomen: No pain, No nausea, No vomiting, No diarrhea, No constipation, No GI bleeding, No problem reported Musculoskeletal: No joint pain, No muscle pain, No swelling, No calf pain, No problem reported Genitourinary - Female: No dysuria, No urinary frequency, No urinary urgency , No urinary incontinence Neurologic: No memory loss, No paralysis, No weakness, No numbness/tingling , No vertigo, No balance problems, No problem reported Psychiatric: No depression symptoms, No anhedonism, No anxiety, No insomnia , No substance abuse, No problem reported Hematologic / Lymphatic: No abnormal bleeding/bruising, No clotting problems , No swollen lymph nodes, No night sweats, No problem reported Integumentary: No rash, No itch, No new/changing skin lesions, No color change, No bleeding, No problem reported Physical Exam: General Appearance: WD/WN, no apparent distress Eyes: normal inspection, EOMI, sclerae normal ENT: normal ENT inspection, hearing grossly normal, pharynx normal Neck: supple, no adenopathy, no JVD, trachea midline Respiratory/Chest: chest non-tender, lungs clear, normal breath sounds, no respiratory distress, no accessory muscle use Cardiovascular: regular rate, rhythm, no edema, no gallop, no JVD, no murmur , normal peripheral pulses Abdomen / GI: normal bowel sounds, non tender, soft, no organomegaly Extremities: normal inspection, no calf tenderness, normal capillary refill , no pedal edema, normal range of motion, pelvis stable 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 New LBBB on EKG, ACS r/o : - enzymes negative x 3, no arrhythmia on monitor - EKG w/ new LBBB - ASA 81 mg daily, Metoprolol 25 mg daily - Consult cardiology - plan for outpatient nuclear stress test - echocardiogram: EF 65%, grade I diastolic dysfunction HTN: - Norvasc 5 mg daily - Hydralazine 10 mg IV q6 hrs PRN sbp >180 or dbp >100 T2DM: - continue Januvia h/o HDL: - Currently on no medications - lipid panel shows LDL 88 Anxiety/depression: Buspar 15 mg TID PRN Chronic R hip pain: Oxycodone 10 mg q4 hrs PRN Gout: Uloric 40 mg daily Insomnia: Trazodone 15 mg HS GI prophylaxis: Protonix 40 mg daily DVT prophylaxis: Heparin SQ BID Code Status: LEVEL I, FULL Total Time Spent: Less than 30 minutes This includes examination of the patient, discharge planning, medication reconciliation, and communication with other providers. Discharge Instructions Please refer to the electronic Patient Visit Report (Discharge Instructions) for additional information. Follow-Up Dr. Shelton for nuclear stress test this week Additional Copies To Yuriy Henriquez MD; Yogi Shelton MD
== END 2017-07-31 18:26 | disposition home or self-care (01) ==
LOC: C.EDB 11:32 → C.2T 14:30 → ENRESERV 14:39 → CANRESERV 14:39 → ENRESERV 15:10
PROVIDERS: ADMIT Family Medicine; ATTEND Internal Medicine
DX: R07.89 Other chest pain (principal); I44.7 Left bundle-branch block, unspecified; I10 Essential (primary) hypertension; E11.9 Type 2 diabetes mellitus without complications; E78.5 Hyperlipidemia, unspecified; F32.9 Major depressive disorder, single episode, unspecified; M10.9 Gout, unspecified; K21.9 Gastro-esophageal reflux disease without esophagitis; Z96.643 Presence of artificial hip joint, bilateral; Z90.49 Acquired absence of other specified parts of digestive tract; Z79.82 Long term (current) use of aspirin; Z87.891 Personal history of nicotine dependence; Z80.3 Family history of malignant neoplasm of breast; Z80.0 Family history of malignant neoplasm of digestive organs; Z83.3 Family history of diabetes mellitus; Z82.49 Family history of ischemic heart disease and other diseases of the circulatory system

== ENCOUNTER → 2017-08-25 | Outpatient (CLI) | payer BC ==
[~2017-08-25] MED LIST changes: -ACET-1311 PO; -AMOX875T PO; -ASCO1CAP3 PO; -OXYC20TA50 PO; +REGADENOSON 0.4 MG/5 ML SYR ONE; +TRAZ50TA35 PO; -[UNRECOGNIZED DRUG - OTHER] PO
--- NOTE | 2017-08-25 18:43 | Myocardial Perfusion Study ---
Myocardial Perfusion Study Rpt Myocardial Perfusion Study Rpt Date of Service 08/25/2017 Myocardial Perfusion Study Rpt Procedure: 1. Myocardial perfusion study performed in multiple views/images 2. Lexiscan pharmacologic stress ECG Indications: 1. Chest pain 2. LBBB Consent: Informed written consent was obtained prior to the procedure. Ordering physician: Dr. Shelton Procedural details: For the stress portion of the study, Lexiscan 0.4 mg was intravenously administered followed by a saline flush. This was followed by 32.3 mCi of technetium 99m Cardiolite, injected at 11:30 a.m. on 08/25/2017. 30 minutes following the injection, imaging of the heart was performed in multiple projections. For the rest portion of the study, 10.7 mCi technetium 99m Cardiolite was injected intravenously at 9:30 a.m. on 08/25/2017. 1 hour following the injection, imaging of the heart was performed in the same projections. Lexiscan stress ECG: Resting ECG demonstrated: Sinus rhythm with LBBB at 68 bpm Maximum heart rate: 108 bpm Resting blood pressure: 153/80 mmHg Maximum blood pressure: 167/59 mmHg Maximal, age-predicted heart rate: 75 % Significant ST changes: None Arrhythmia: None Symptoms: Headache. No chest pain reported. Findings: Rotating raw imaging demonstrated no significant lung uptake. There is no significant motion artifact. Heart size appeared normal. Myocardial perfusion demonstrated no significant reversible or fixed defect to suggest ischemia or infarct. Myocardial perfusion was normal. Ejection fraction: 75 % Wall motion: Normal No significant transient ischemic dilation. Impression: 1. Normal myocardial perfusion. 2. Hyperdynamic LV systolic function. EF 75%. 3. Normal wall motion. 4. No arrhythmia. 5. No chest pain. 6. Indeterminate Lexiscan ECG.
== END | disposition home or self-care (01) ==
LOC: C.NUCL 08:55
PROVIDERS: ATTEND Internal Medicine Cardiovascular Disease
DX: R07.9 Chest pain, unspecified (principal); I44.7 Left bundle-branch block, unspecified

== ENCOUNTER 2017-09-10 03:19 | Emergency (ER) | payer BC ==
[~2017-09-10] VITALS: Ht 165.1 cm; Wt 58.6 kg
[~2017-09-10 03:19] MED LIST changes: -REGADENOSON 0.4 MG/5 ML SYR ONE
[2017-09-10 03:29] VITALS: TEMP 36.9; Ht 165.1 cm; Wt 58.6 kg
[2017-09-10] MEDS ORDERED: SOAP SUDS ENEMA PR STA (03:45)
[2017-09-10] MEDS ORDERED: HYDROCORTISONE HC 2.5% CRM 30GM TUBE EXT ONE (03:45)
--- NOTE | 2017-09-10 03:48 | EMERGENCY ROOM VISIT NOTE ---
History Report prepared by Donnie: Odell Keen Under the Supervision of: Dr. Shree Nevarez M.D. First contact with patient: 03:36 Chief Complaint: CONSTIPATION Stated Complaint: BOWELS WONT MOVE Nursing Triage Summary: Pt states she has not had a BM for 2 days. Pt has tries Exlax and dulcolax pills with no results. Pt states she is now having pain in her rectum with a small amount of bleeding. Pt denies history of constipation. Pt states she is on oxycodone for hip pain. History of Present Illness The patient is a 77 year old female who presents to the Emergency Room with complaints of constant constipation starting a couple of days ago. She additionally has been having some abdominal pain, rectal pain, and some rectal bleeding. She states that she has been taking pain medications every four hours , and she has never had constipation like this in the past. She states that she has been taking ex-lax and Dulcolax, and she has not tried to use any enema. She denies any nausea, vomiting, passing out, or urinary symptoms. She denies any abdominal surgeries or past bowel obstructions. The patient states that she has a history of diabetes. Source of History: patient Onset: a couple days Position: other (global) Quality: other (constipation) Timing: constant Associated Symptoms: + abdominal pain, No LOC, No nausea, No vomiting, No urinary symptoms Review of Systems See HPI for pertinent positives & negatives. A total of 10 systems reviewed and were otherwise negative. Past Medical & Surgical Medical Problems: (1) Acute kidney failure (2) Hypertension (3) Sacral osteomyelitis (4) Sacral ulcer (5) Sacral wound Family History Breast cancer MOTHER Colon cancer BROTHER Diabetes mellitus FATHER MOTHER Heart disease FATHER MOTHER Hypertension FATHER MOTHER Social History Smoking Status: Former Smoker Drug Use: none Marital Status: Housing Status: lives alone Occupation Status: retired Current/Historical Medications Scheduled Amlodipine (Norvasc), 5 MG PO DAILY Aspirin (Aspirin Ec), 81 MG PO DAILY Febuxostat (Uloric), 40 MG PO DAILY Metoprolol Succ (Toprol Xl) (Toprol-Xl), 25 MG PO DAILY Sitagliptin (Januvia), 50 MG PO DAILY Trazodone Hcl (Trazodone), 25 MG PO HS Scheduled PRN Oxycodone Ir (Roxicodone Ir), 10 MG PO Q4H PRN for Severe Pain Allergies Coded Allergies: Morphine (Verified Adverse Reaction, Unknown, "BECAME PALE AND NEARLY PASSED OUT WITH INDEPENDENT LIVING ADVISOR MORPHINE", 01/26/17) BECAME PALE AND NEARLY PASSED-OUT WITH INDEPENDENT LIVING ADVISOR MORPHINE (NO SKIN RASH, NO DIFFICULTY BREATHING), BUT HAS TOLERATED PERCOCET AND DEMEROL ON PAST ADMISSION. Physical Exam Vital Signs Date Time Temp Pulse Resp B/P (MAP) Pulse Ox O2 Delivery O2 Flow Rate FiO2 09/10/17 05:24 73 18 165/92 96 09/10/17 04:37 70 18 158/77 97 Room Air 09/10/17 03:29 36.9 82 20 183/77 98 Room Air Physical Exam GENERAL: Patient is well appearing and in no acute distress. HEENT: No acute trauma, normocephalic atraumatic, mucous membranes moist, no nasal congestion, no scleral icterus. NECK: No stridor, no adenopathy, no meningismus, trachea is midline. LUNGS: No dyspnea. Clear to auscultation and equal bilaterally. No wheeze, no rhonchi. HEART: Regular rate and rhythm. No murmurs, rubs, gallops appreciated. ABDOMEN: Soft, nontender, bowel sounds positive, no masses appreciated, no peritonitis. BACK: No midline tenderness, no CVA tenderness RECTAL: Inflamed perirectal area. No fluctuance. Mild tenderness. Large, firm stool ball within the rectal vault. No blood appreciated. EXTREMITIES: Normal motion all extremities, no cyanosis, no edema. NEUROLOGIC: Alert and oriented, no acute motor or sensory deficits, no focal weakness, cranial nerves grossly intact. SKIN: No rash, no jaundice, no diaphoresis. Medical Decision & Procedures Medications Administered Medications (Trade) Dose Ordered Sig/Lulú Route Start Time Stop Time Status Last Admin Dose Admin Hydrocortisone (Proctozone Hc 2.5% Crm) 1 appln NOW ONCE EXT 09/10/17 03:45 09/10/17 03:46 DC 09/10/17 05:17 1 APPLN Miscellaneous (Soap Suds Enema) 1 ea NOW STAT ND 09/10/17 03:45 09/10/17 03:46 DC 09/10/17 03:45 1 EA ED Course 0336: The patient was evaluated in room A10. A complete history and physical exam was performed. 0345: Soap Suds Enema ND, Proctozone Hc 2.5% Crm 1 appln EXT 0506: I reevaluated the patient, and she is feeling much better. She is going to pick up man MiraLAX and other stool softeners at the pharmacy. I discussed symptoms that would require her to come back to the ER. She will be discharged home. Medical Decision Differential diagnosis: Etiologies such as functional constipation, impaction, obstruction, volvulus, metabolic abnormality, infection, neurologic, as well as others were entertained. 77 yr old female on chronic opioid therapy arrives for constipation x 2 days. Moderately edematous rectum with fissures and some mild bleeding on exam consistent with the extended pushing on toilet. No evidence abscess/infection at this time.. Large disempaction followed by enema with vast improvement in patient symptoms. With amount of edema given steroid cream. Reviewed symptoms requiring return... increased pain, fevers, vomiting, heavy bleeding, etc. She is stable, feeling much better and comfortable with plan to go home. Medication Reconcilliation Current Medication List: was personally reviewed by me Blood Pressure Screening Patient's blood pressure: Elevated blood pressure Blood pressure disposition: Referred to PCP Impression Primary Impression: Constipation Additional Impressions: Rectal inflammation Rectal fissure Scribe Attestation The scribe's documentation has been prepared under my direction and personally reviewed by me in its entirety. I confirm that the note above accurately reflects all work, treatment, procedures, and medical decision making performed by me. Departure Information Dispostion Home / Self-Care Referrals Yuriy Henriquez MD (PCP) Forms HOME CARE DOCUMENTATION FORM, IMPORTANT VISIT INFORMATION Patient Instructions ED Constipation, My [facility] Problem Qualifiers
[2017-09-10] MEDS ORDERED: ASPI81TA28 PO (04:18)
[2017-09-10 05:24] VITALS: BP 165/92; PULSE 73; O2SAT 96
== END 2017-09-10 05:24 | disposition home or self-care (01) ==
LOC: C.EDB 03:21 → C.EDA 05:24
DX: K59.00 Constipation, unspecified (principal); K62.89 Other specified diseases of anus and rectum; K60.2 Anal fissure, unspecified; I10 Essential (primary) hypertension; N17.9 Acute kidney failure, unspecified; Z83.3 Family history of diabetes mellitus; Z82.49 Family history of ischemic heart disease and other diseases of the circulatory system; Z87.891 Personal history of nicotine dependence; Z79.82 Long term (current) use of aspirin

== ENCOUNTER → 2017-12-03 | Outpatient (CLI) | payer BC ==
[~2017-12-03] MED LIST changes: +ASPI81TA28 PO; -BUSP15TA70 PO; -FURO-85 PO
--- NOTE | 2017-12-03 12:47 | DIAGNOSTIC IMAGING REPORT ---
SACRUM COCCYX MIN 2 VIEWS CLINICAL HISTORY: SACROCOCCYGEAL DISORDERS COMPARISON STUDY: Sacrum/coccyx 02/19/2017. FINDINGS: No acute fractures identified within the sacrum or coccyx. Probable old, healed fracture of the distal sacrum. This remains unchanged. Presacral soft tissues are intact. Old posttraumatic and postoperative changes within the right hip which are partially visualized. This also remains unchanged. 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 There is a left total hip arthroplasty. Mild degenerative changes within the bilateral sacroiliac joints. IMPRESSION: No change compared the prior study. No acute fractures identified within the sacrum or coccyx. Old posttraumatic and postoperative changes are again noted within the hips. Electronically signed by: Davey Flannery M.D. 12/03/2017 12:46 PM Dictated Date/Time: 12/03/2017 12:43 PM
== END | disposition home or self-care (01) ==
LOC: C.RAD1850 12:23
PROVIDERS: ATTEND Family Medicine
DX: M53.3 Sacrococcygeal disorders, not elsewhere classified (principal)

== ENCOUNTER → 2018-02-17 | Outpatient (CLI) | payer BC | END | disposition home or self-care (01) | LOC: C.PAPS 13:52 | PROVIDERS: ATTEND Obstetrics & Gynecology | DX: Z01.419 Encounter for gynecological examination (general) (routine) without abnormal findings (principal) ==

== ENCOUNTER 2018-03-28 09:44 | Emergency (ER) | payer BC ==
[~2018-03-28] VITALS: Ht 165.1 cm; Wt 62.5 kg
[2018-03-28 09:46] VITALS: TEMP 37.1; Ht 165.1 cm; Wt 62.5 kg
[2018-03-28] MEDS ORDERED: OXYCODONE HCL IR 5 MG TAB (IMMEDIATE RELEASE) PO STA (10:00)
[2018-03-28] MEDS ORDERED: ASPIRIN 324 MG CHEW PO STA (10:00)
[2018-03-28 10:03] VITALS: O2SAT 98
[2018-03-28 10:08] LABS: BASO % 0.4 %; BASO ABS # 0.03 K/uL (0-0.2); EOS % 5.1 %; EOS ABS # 0.42 K/uL (0-0.5); HEMOGLOBIN 13.6 g/dL (12.0-16.0); IG# 0.01 K/uL (0.00-0.02); LYMPH % 10.6 %; LYMPH ABS # 0.87 K/uL (1.2-3.4); MEAN CELL VOLUME 89.5 fL (80-100); MEAN CORPUSCULAR HEMOGLOBIN 30.4 pg (25-34); MEAN PLATELET VOLUME 11.1 fL (7.4-10.4); MONO % 6.1 %; NEUT % 77.7 %; NEUT ABS # 6.35 K/uL (1.4-6.5); PLATELET COUNT 213 K/uL (130-400); RED CELL DISTRIBUTION WIDTH CV 13.2 % (11.5-14.5); RED CELL DISTRIBUTION WIDTH SD 43.2 fL (36.4-46.3); WHITE BLOOD COUNT 8.18 K/uL (4.8-10.8)
[2018-03-28 10:19] LABS: PTT PATIENT 25.9 SECONDS (21.0-31.0)
[2018-03-28 10:23] LABS: CALCIUM 8.8 mg/dl (8.5-10.1); CREATININE 1.17 mg/dl (0.60-1.20); POTASSIUM 3.6 mmol/L (3.5-5.1)
--- NOTE | 2018-03-28 10:25 | DIAGNOSTIC IMAGING REPORT ---
CHEST ONE VIEW PORTABLE HISTORY: 78 years-old Female cp acute atypical chest pain COMPARISON: Chest radiograph 07/30/2017 TECHNIQUE: Portable AP view of the chest FINDINGS: Cardiomediastinal and hilar silhouettes are within normal limits. Atherosclerosis of the aorta. No pneumothorax, pleural effusion, focal airspace consolidation or overt pulmonary edema. Severe osteoarthritis about the bilateral shoulders with multilevel degenerative changes of the spine. IMPRESSION: No acute process. The above report was generated using voice recognition software. It may contain grammatical, syntax or spelling errors. Electronically signed by: Lance Aleman M.D. 03/28/2018 10:24 AM Dictated Date/Time: 03/28/2018 10:23 AM
[2018-03-28] MEDS ORDERED: KETOROLAC TROMETHAMINE 30 MG/ML VIAL IV STA (10:47)
[2018-03-28] MEDS ORDERED: BUSP15TA70 PO (10:51)
[2018-03-28] MEDS ORDERED: OXYC1TAB3 PO (10:51)
[2018-03-28 12:04] VITALS: BP 176/79; PULSE 66; O2SAT 99
--- NOTE | 2018-03-28 16:16 | EMERGENCY ROOM VISIT NOTE ---
History Report prepared by Donnie: Domonique Jung Under the Supervision of: Dr. Mc Braswell M.D. First contact with patient: 09:52 Chief Complaint: CARDIAC ASSESSMENT Stated Complaint: CHEST PAIN History of Present Illness The patient is a 78 year old female who presents to the Emergency Room with complaints of intermittent left sided chest pain starting 1 week ago. The pain has been constant since 0430. She describes the pain as an ache. The pain does not go into her neck or her arm. The pain does not worsen with breathing, exertion, or moving her left arm. It improves with her pain medications. She is chronically on oxycodone for her hip. She states she did not take her dose this morning. She denies any SOB, fever, cold symptoms, vomiting, or abdominal pain. She states that she has a bad hip and leg, but otherwise denies any calf pain or swelling. She denies any history of heart disease. She states that she had a normal cardiac stress test within the last year. Source of History: patient Onset: 1 week ago Position: chest (left) Quality: ache Timing: intermittent Modifying Factors (Relieving): other (pain medications) Associated Symptoms: No fevers, No neck pain, No SOB, No vomiting, No abdominal pain Review of Systems See HPI for pertinent positives & negatives. A total of 10 systems reviewed and were otherwise negative. Past Medical & Surgical Medical Problems: (1) Acute kidney failure (2) Hypertension (3) Sacral osteomyelitis (4) Sacral ulcer (5) Sacral wound Family History Breast cancer MOTHER Colon cancer BROTHER Diabetes mellitus FATHER MOTHER Heart disease FATHER MOTHER Hypertension FATHER MOTHER Social History Smoking Status: Never Smoker Drug Use: none Marital Status: Housing Status: lives alone Occupation Status: retired Current/Historical Medications Scheduled Amlodipine (Norvasc), 5 MG PO DAILY Aspirin (Aspirin Ec), 81 MG PO DAILY Buspirone Hcl (Buspar), 1 TAB PO TID Febuxostat (Uloric), 40 MG PO DAILY Metoprolol Succ (Toprol Xl) (Toprol-Xl), 25 MG PO DAILY Sitagliptin (Januvia), 50 MG PO DAILY Scheduled PRN Oxycodone Immediate Rel Tab (Roxicodone Ir), 10 MG PO Q4H PRN for Severe Pain Allergies Coded Allergies: Morphine (Verified Adverse Reaction, Unknown, "BECAME PALE AND NEARLY PASSED OUT WITH 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 Physical Exam Vital Signs Date Time Temp Pulse Resp B/P (MAP) Pulse Ox O2 Delivery O2 Flow Rate FiO2 03/28/18 12:04 66 20 176/79 99 Room Air 03/28/18 11:00 149/64 03/28/18 10:44 70 6 99 03/28/18 10:37 145/88 03/28/18 10:14 74 24 98 03/28/18 10:03 98 Room Air 03/28/18 10:00 80 03/28/18 09:52 98 Room Air 03/28/18 09:46 37.1 87 18 154/76 95 Room Air Physical Exam Constitutional: Vital signs reviewed. Eyes: Pupils are equal round reactive to light. Conjunctiva are noninjected. ENT: Pharynx is clear without erythema or exudate. Mucous membranes are moist. Neck supple without meningeal signs. Respiratory: Clear to auscultation bilaterally. Breath sounds are equal bilaterally. Cardiovascular: Regular rate and rhythm. No rubs or gallops. GI: Soft, nondistended and nontender. Bowel sounds are present. Musculoskeletal: Reproducible left chest wall tenderness. No peripheral edema. No lower extremity tenderness. Integumentary: No cyanosis. Neurological: The patient is awake and alert. No focal deficits. Psychiatric: Normal affect. Medical Decision & Procedures ER Provider Diagnostic Interpretation: X-ray results as stated below per interpretation by me and the radiologist: CHEST ONE VIEW PORTABLE HISTORY: 78 years-old Female cp acute atypical chest pain COMPARISON: Chest radiograph 07/30/2017 TECHNIQUE: Portable AP view of the chest FINDINGS: Cardiomediastinal and hilar silhouettes are within normal limits. Atherosclerosis of the aorta. No pneumothorax, pleural effusion, focal airspace consolidation or overt pulmonary edema. Severe osteoarthritis about the bilateral shoulders with multilevel degenerative changes of the spine. IMPRESSION: No acute process. The above report was generated using voice recognition software. It may contain grammatical, syntax or spelling errors. Electronically signed by: Lance Aleman M.D. 03/28/2018 10:24 AM Dictated Date/Time: 03/28/2018 10:23 AM Laboratory Results 03/28/18 10:05 Red Blood Count 4.47, Mean Corpuscular Volume 89.5, Mean Corpuscular Hemoglobin 30.4, Mean Corpuscular Hemoglobin Concent 34.0, Mean Platelet Volume 11.1, Neutrophils (%) (Auto) 77.7, Lymphocytes (%) (Auto) 10.6, Monocytes (%) (Auto) 6.1, Eosinophils (%) (Auto) 5.1, Basophils (%) (Auto) 0.4, Neutrophils # (Auto) 6.35, Lymphocytes # (Auto) 0.87, Monocytes # (Auto) 0.50, Eosinophils # (Auto) 0.42, Basophils # (Auto) 0.03 03/28/18 10:05 Test 03/28/18 10:05 03/28/18 11:40 White Blood Count 8.18 K/uL (4.8-10.8) Red Blood Count 4.47 M/uL (4.2-5.4) Hemoglobin 13.6 g/dL (12.0-16.0) Hematocrit 40.0 % (37-47) Mean Corpuscular Volume 89.5 fL (80-100) Mean Corpuscular Hemoglobin 30.4 pg (25-34) Mean Corpuscular Hemoglobin Concent 34.0 g/dl (32-36) Platelet Count 213 K/uL (130-400) Mean Platelet Volume 11.1 fL (7.4-10.4) Neutrophils (%) (Auto) 77.7 % Lymphocytes (%) (Auto) 10.6 % Monocytes (%) (Auto) 6.1 % Eosinophils (%) (Auto) 5.1 % Basophils (%) (Auto) 0.4 % Neutrophils # (Auto) 6.35 K/uL (1.4-6.5) Lymphocytes # (Auto) 0.87 K/uL (1.2-3.4) Monocytes # (Auto) 0.50 K/uL (0.11-0.59) Eosinophils # (Auto) 0.42 K/uL (0-0.5) Basophils # (Auto) 0.03 K/uL (0-0.2) RDW Standard Deviation 43.2 fL (36.4-46.3) RDW Coefficient of Variation 13.2 % (11.5-14.5) Immature Granulocyte % (Auto) 0.1 % Immature Granulocyte # (Auto) 0.01 K/uL (0.00-0.02) Prothrombin Time 10.7 SECONDS (9.0-12.0) Prothromb Time International Ratio 1.0 (0.9-1.1) Activated Partial Thromboplast Time 25.9 SECONDS (21.0-31.0) Partial Thromboplastin Ratio 1.0 Anion Gap 10.0 mmol/L (3-11) Est Creatinine Clear Calc Drug Dose 35.7 ml/min Estimated GFR () 51.7 Estimated GFR (Non- 44.6 BUN/Creatinine Ratio 26.9 (10-20) Calcium Level 8.8 mg/dl (8.5-10.1) Bedside Troponin I < 0.030 ng/ml (0-0.045) Laboratory results as reviewed by me. Medications Administered Medications (Trade) Dose Ordered Sig/Lulú Route Start Time Stop Time Status Last Admin Dose Admin Aspirin (Aspirin Chew) 324 mg NOW STAT PO 03/28/18 10:00 03/28/18 10:01 DC 03/28/18 10:32 324 MG Oxycodone HCl (Roxicodone Immediate Rel Tab) 5 mg NOW STAT PO 03/28/18 10:00 03/28/18 10:01 DC 03/28/18 10:35 5 MG Ketorolac Tromethamine (Toradol Inj) 10 mg NOW STAT IV 03/28/18 10:47 03/28/18 10:49 DC 03/28/18 11:17 10 MG ECG Per My Interpretation Indication: chest pain Rate (beats per minute): 80 Rhythm: normal sinus Findings: LBBB, no acute ischemic change, other (no PVC) Comparison ECG Date: 31-Jul-2017 Change: no significant change ED Course 0955: The patient was evaluated in room A9B. A complete history and physical exam was performed. 1000: Oxycodone HCl 5 mg PO, Aspirin 324 mg PO. 1045: I reevaluated the patient. She states that her pain is unchanged, but she just got the oxycodone. I discussed the test results with her. She reports that she was told her stress test from August was negative. 1047: Toradol Inj 10 mg IV. 1150: I reevaluated the patient. She is currently feeling much better after IV Toradol. Her 2nd troponin was 0. I discussed tonight's findings with her. She verbalized agreement of the treatment plan. She was discharged home. Medical Decision This is a 78-year-old female presents with reproducible left chest wall tenderness. Differential diagnosis includes pleurisy, costochondritis, pneumothorax, pericarditis, acute coronary syndrome, GERD. I did perform a limited focused review of portions of the patient's old chart on the electronic medical record. The patient had a nuclear stress test in August, but I could not access the results. I did evaluate the patient as noted above. Patient is presenting with a week of intermittent left-sided chest pain which is 100% reproducible on examination. The pain has been constant since 430 this morning. IV access was established. The patient was placed on a continuous cardiac cath lab radiology technologist. I did treat patient with aspirin and oxycodone. I did order and personally review the patient's 12-lead EKG and chest x-ray as described above. Twelve-lead EKG shows an old left bundle branch block without any acute ischemia. Chest x-ray is unremarkable. I did order and review the patient's blood work as noted in the electronic medical record. Troponin 2 is negative. I did reassess the patient. She still had chest pain so I treated her with 10 mg of Toradol IV. On reexamination the patient states that her pain is mostly gone. She states that she felt like the Toradol seemed to help more than the oxycodone. I did discuss the test results with the patient. I did recommend she follow closely with her doctor for further evaluation. She was discharged in good condition. Medication Reconcilliation Current Medication List: was personally reviewed by me Blood Pressure Screening Patient's blood pressure: Elevated blood pressure Blood pressure disposition: Referred to PCP Impression Primary Impression: Left sided chest pain Scribe Attestation The scribe's documentation has been prepared under my direct and personally reviewed by me in its entirety. I confirm that the note above accurately reflects all work, treatment, procedures, and medical decision making performed by me. Departure Information Dispostion Home / Self-Care Referrals Yuriy Henriquez MD (PCP) Forms IMPORTANT VISIT INFORMATION Patient Instructions ED Chest Pain Atypical Unkn Cause, My [facility] Additional Instructions You have been examined and treated today on an emergency basis only. This is not a substitute for, or an effort to provide, complete comprehensive medical care. It is impossible to recognize and treat all injuries or illnesses in a single emergency department visit. It is therefore important that you follow up closely with your physician. Call as soon as possible for an appointment. Return for worsening symptoms or if you develop shortness of breath, lightheadedness, profuse sweating or any other concerning symptoms.
== END 2018-03-28 12:17 | disposition home or self-care (01) ==
LOC: C.EDB 09:45 → C.EDA 12:17
DX: R07.89 Other chest pain (principal); I44.7 Left bundle-branch block, unspecified; I10 Essential (primary) hypertension; Z79.82 Long term (current) use of aspirin; Z82.49 Family history of ischemic heart disease and other diseases of the circulatory system; Z88.6 Allergy status to analgesic agent

== ENCOUNTER → 2018-06-15 | Outpatient (CLI) | payer BC ==
[~2018-06-15] MED LIST changes: -AMLO-110 PO; +AMLO5TAB3 PO; +BUSP15TA70 PO; +OXYC-737 PO; -OXYC1TAB3 PO; -TRAZ50TA35 PO
--- NOTE | 2018-06-17 07:55 | MAMMOGRAPHY REPORT ---
BILATERAL DIGITAL SCREENING MAMMOGRAM TOMOSYNTHESIS WITH CAD: 06/15/2018 CLINICAL HISTORY: Routine screening. TECHNIQUE: The study was acquired using full field digital technology and interpreted from soft copy. Breast tomosynthesis in addition to standard 2D mammography was performed. Current study was also ev aluated with a Computer Aided Detection (CAD) system. COMPARISON: Comparison is made to exams dated: 06/11/2017 mammogram, 06/06/2016 mammogram, 06/01/2015 m ammogram, 05/29/2014 mammogram, 05/27/2013 mammogram, and 05/24/2012 mammogram - [facility] er. BREAST COMPOSITION: There are scattered areas of fibroglandular density in both breasts. FINDINGS: The right MLO view is suboptimal due to inability of the patient to adequately position for the exam, given her frozen shoulder. Within this limitation, there are mild vascular calcifications and scattered benign-appearing microcalcifications bilaterally. No suspicious mass, architectural di stortion or cluster of microcalcifications is seen. IMPRESSION: ACR BI-RADS CATEGORY 1: NEGATIVE There is no mammographic evidence of malignancy. A 1 year screening mammogram is recommended.( 019) The patient will receive written notification of the results. Some breast cancers are not detected with mammography. A negative mammographic report should not sheba y biopsy if a clinically suggestive mass is present. Elizabeth Layne M.D. ay/:06/15/2018 16:47:03 [employer] Machine Tender: RT Kike(R)(M), [facility] letter sent: Normal 1/2 BI-RADS Code: ACR BI-RADS Category 1: Negative
== END | disposition home or self-care (01) ==
LOC: C.MAMM 13:11
PROVIDERS: ATTEND Obstetrics & Gynecology
DX: Z12.31 Encounter for screening mammogram for malignant neoplasm of breast (principal)

== ENCOUNTER 2022-07-22 16:56 | Inpatient (IN) ==
--- NOTE | 2022-07-22 17:44 | Emergency Department Note ---
Impression & Plan Frequent falls, Acute hypokalemia, Weakness, Acute dehydration ED Provider Note NAME: JESUS VENTURA AGE: 82 SEX: F : 1940 ARRIVES VIA: Ambulance INFORMANT: [Patient][, ] ED PROVIDER(S): [Erick Mccauley MD] Chief Complaint: Fall, hip pain HPI: Patient presents from home due to concern for fall. She is accompanied by her nephew at bedside. The patient's primary POA and daughter lives in [place]. The patient's had 4 falls in the last 72 hours primarily getting up from bed. Patient is to use a walker at all times and states that she is doing so. Patient denies any fevers chills chest pains or shortness of breath. The patient denies any head strike or LOC and does not take blood thinning m edications. Patient reportedly complained primarily of some right hip pain. Patient did not take any for pain prior to arrival. Is primarily in the right hip aching and nonradiating. Worse with trying to ambulate or palpation or range of motion. Patient does have a prior history of hip replacement and does follow with [facility]. ROS: See HPI for pertinent positives and negatives. A total of 10 systems were reviewed and otherwise negative. Past medical history: See below Surgical history: See below Social history: See below Physical Exam: GENERAL: NAD, [wearing a mask,] non-toxic. EYE EXAM: Normal conjunctiva. PERRL, no anisocoria and EOM's grossly intact w/o pain. NECK: Supple, no nuchal rigidity, mild midline lower C-spine discomfort without obvious step-off. No signs of meningismus. FROM of the neck with good chin to chest and neck extension. No stridor. LUNGS: Clear to auscultation. Normal chest wall mechanics. HEART: NSR, systolic ejection murmur noted. ABDOMEN: Abdomen soft, non-tender, normo-active bowel sounds, no masses, no rebound or guarding. BACK: Mild midline LBP without obvious step-offs SKIN: Scant bruising to the left forearm. UPPER EXTREMITIES: Upper extremities are grossly normal. No TTP or obvious deformity. LOWER EXTREMITIES: Well-healed right lateral hip incisional scar, mild TTP but no obvious deformity, good range of motion, neurovascular intact distally. Well-healed left anterior incisional scar with good range of motion, neur ovascular intact, distal aged bruising noted over the sin, neurovascular tact distally. NEURO EXAM: A&O x3, cranial nerves II-XII grossly intact, normal speech, moves all 4 extremities. Differential diagnoses: Fracture, dislocation, contusion, intra-abdominal, pneumothorax, intrathoracic, intracranial, neurologic, compartment syndrome, rhabdomyolysis, as well as other pathologies. Course: Patient was seen and evaluated the bedside. Full history physical exam was performed. EKG interpreted by me Normal sinus rhythm, rate of 62, wide QRS, left axis deviation, left bundle branch block pattern. No obvious sgarbossa criteria. Imaging Studies: See Below Cardiac monitoring: An order was placed for continuous cardiac monitoring. The monitor shows a rate of 72 with sinus rhythm. MDM: Patient seen due to concern for fall and pain. Blood work was obtained along with CT head cervical spine and lumbar spine as well as plain films of the left knee bilateral hips and pelvis. Patient's blood work does show hypokalemia. The patient white count was normal with mild anemia at 10.7. Platelet count is normal. Patient's kidney function is otherwise unremarkable but with prerenal azotemia. Patient's urinalysis does not show obvious infection. Patient's plain films and CTs are negative. Patient may have an age-indeterminate insufficiency fracture of the right sacral maryuri based on patient's CT of the lumbar spine. Given the patient's ambulatory dysfunction and inability to place patient rehab this evening I did speak with the on-call hospitalist and patient was admitted by Dr. Roth. Past Med/Surg History Medical History Acute kidney failure Degenerative disc disease Depression Diabetes NIDDM Hx: UTI (urinary tract infection) Hyperlipidemia Hypertension LBBB (left bundle branch block) doesn't follow with cardio Osteoarthritis Sacral osteomyelitis Sacral ulcer Sacral wound UTI (urinary tract infection) Surgical History History of adenoidectomy History of appendectomy History of arthroscopy RIGHT HIP History of cholecystectomy History of colonoscopy History of tonsillectomy History of tooth extraction History of total hip arthroplasty BILAT History of total knee replacement BILAT Hx of breast biopsy BENIGN S/P epidural steroid injection Sacral osteomyelitis with surgical intervention Family History Father Diabetes Mother Diabetes Social History Smoking Status: Former smoker Smoking End Date: 20 years ago; Second Hand Exposure: No; Hx Alcohol Use: No Hx Substance Use: No Preferred Language: Azeri Communication Ability: Effective Men'S Garment Fitter Required: No Beliefs That Will Affect Care: None Current Living Situation: Alone Current Living Situation Comment: pt stated nephew nearby to help with needs Other Information That Helps Us Care for You: No Feels Safe at Home: Yes Safety Concerns: Feels Safe At This Time Assistive Devices: Denture - Upper, Denture - Lower, Glasses and Walker Allergies Allergies Allergy/AdvReac Type Severity Reaction Status Date / Time morphine AdvReac Unknown "BECAME Verified 04/04/22 15:41 PALE AND NEARLY PASSED OUT WITH [employer] MORPHINE" Home Meds Home Medications Medication Instructions Recorded Confirmed amlodipine 10 mg tablet 10 mg PO QAM 11/12/20 07/22/22 aspirin 81 mg tablet,delayed 81 mg PO QDL 11/12/20 07/22/22 release buspirone 30 mg tablet 30 mg PO BID 11/12/20 07/22/22 metoprolol succinate 25 mg 25 mg PO QAM 11/12/20 07/22/22 tablet,extended release 24 hr simvastatin 10 mg tablet 10 mg PO QPM 11/12/20 07/22/22 sitagliptin 50 mg tablet (Januvia) 50 mg PO QAM 11/12/20 07/22/22 tramadol 50 mg tablet 50 mg PO DAILY 11/12/20 07/22/22 acetaminophen 500 mg tablet 500 mg PO Q6H PRN Pain 01/01/21 07/22/22 (Tylenol Extra Strength) gabapentin 100 mg capsule 200 mg PO TID 04/06/22 07/22/22 pantoprazole 20 mg tablet,delayed 20 mg PO DAILY 04/06/22 07/22/22 release trazodone 50 mg tablet 25 mg PO HS 04/06/22 07/22/22 Results & Data (ED) Vital Signs Vital Signs - 24 hr 07/22/22 16:56 07/22/22 18:06 07/22/22 18:00 Temperature 37.1 C Temperature Source Oral Pulse Rate 69 66 Pulse Rate [Finger] Pulse Rate from SpO2 Sensor Respiratory Rate 14 20 Respiratory Effort / Characteristics Non-Labored Respiratory Depth Normal Respiratory Pattern Regular Blood Pressure 155/108 H 176/82 H Blood Pressure [Right Arm] Blood Pressure Mean 123 113 Blood Pressure Mean [Right Arm] Blood Pressure Position [Right Arm] Pulse Oximetry 96 93 Oxygen Delivery Method Room Air Room Air Sepsis Recent Fever Within 48 Hours No Sepsis New/Unexplained Change in Mental Status No Sepsis Action Taken by Nursing No Action Required 07/22/22 20:20 07/22/22 22:00 Temperature 36.5 C Temperature Source Oral Pulse Rate 59 L Pulse Rate [Finger] 62 Pulse Rate from SpO2 Sensor 60 Respiratory Rate 18 20 Respiratory Effort / Characteristics Non-Labored Respiratory Depth Normal Respiratory Pattern Regular Blood Pressure 159/80 H Blood Pressure [Right Arm] 115/74 Blood Pressure Mean 106 Blood Pressure Mean [Right Arm] 87 Blood Pressure Position [Right Arm] Lying Pulse Oximetry 96 97 Oxygen Delivery Method Room Air Sepsis Recent Fever Within 48 Hours Sepsis New/Unexplained Change in Mental Status Sepsis Action Taken by Prison Medications Current Medication List: was personally reviewed by me Laboratory Data Attestation: I reviewed the patient's lab results. Result diagrams: 07/23/22 06:25 07/23/22 06:25 Lab Results 07/22/22 07/22/22 07/22/22 Range/Units 17:17 17:17 17:17 WBC 6.78 (4.8-10.8) K/ul RBC 3.30 L (3.93-5.22) M/uL Hgb 10.7 L (12.0-16.0) g/dl Hct 32.0 L (34.1-44.9) % MCV 97.0 (80.0-100.0) fL MCH 32.4 (25.0-34.0) pg MCHC 33.4 (32.0-36.0) g/dL RDW Std Deviation 42.5 (36.4-46.3) fL RDW Coeff of Kylee 12.0 (11.5-14.5) % Plt Count 222 (130-400) K/uL MPV 12.8 H (9.4-12.3) fL Immature Gran % (Auto) 0.4 % Neut % (Auto) 70.7 % Lymph % (Auto) 14.0 % Bowie % (Auto) 7.7 % Eos % (Auto) 6.5 % Baso % (Auto) 0.7 % Neut # (Auto) 4.79 (1.4-6.5) K/uL Lymph # (Auto) 0.95 L (1.2-3.4) K/uL Bowie # (Auto) 0.52 (0.24-0.82) K/uL Eos # (Auto) 0.44 (0-0.50) K/uL Baso # (Auto) 0.05 (0-0.2) K/uL Immature Gran # (Auto) 0.03 H (0.00-0.02) K/uL Sodium 145 (136-145) mmol/L Potassium 2.6 L (3.5-5.1) mmol/L Chloride 112 H (98-107) mmol/L Carbon Dioxide 23 (21-32) mmol/L Anion Gap 10 (3-11) BUN 25 H (6-23) mg/dl Creatinine 1.10 (0.6-1.2) mg/dl Est Cr Clr Drug Dosing Not Reportable Est GFR ( Amer) 54.1 ml/min Est GFR (Non-Af Amer) 46.7 ml/min BUN/Creatinine Ratio 22.7 H (10-20) Glucose 96 (70-99(Fasting)) mg/dl POC Glucose (70-99) mg/dl Calcium 9.6 (8.5-10.1) mg/dl Magnesium (1.7-2.4) mg/dl Total Bilirubin 0.5 (0.2-1.0) mg/dl AST 17 (13-39) U/L ALT 10 (7-52) U/L Alkaline Phosphatase 39 (34-104) U/L Total Protein 5.2 L (6.0-8.3) gm/dl Albumin 3.6 (3.4-5.0) gm/dl Globulin 1.6 L (2.5-4.0) gm/dl Albumin/Globulin Ratio 2.3 H (0.9-2) TSH 1.354 (0.300-4.500) uIu/ml Urine Color Urine Appearance (Clear) Urine pH (4.5-7.5) Ur Specific [place] (1.000-1.030) Urine Protein (Negative) Urine Glucose (UA) (Negative) Urine Ketones (Negative) Urine Blood (Negative) Urine Nitrite (Negative) Urine Bilirubin (Negative) Urine Urobilinogen (Negative) Ur Leukocyte Esterase (Negative) Urine WBC (Auto) (0-5) /hpf Urine RBC (Auto) (0-4) /hpf U Hyaline Cast (Auto) (0-5) /lpf U Epithel Cells (Auto) (0-5) /lpf Urine Bacteria (Auto) (Negative) SARS-CoV-2, RNA, NAAT (NEGATIVE) 07/22/22 07/22/22 07/22/22 Range/Units 17:17 20:54 21:00 WBC (4.8-10.8) K/ul RBC (3.93-5.22) M/uL Hgb (12.0-16.0) g/dl Hct (34.1-44.9) % MCV (80.0-100.0) fL MCH (25.0-34.0) pg MCHC (32.0-36.0) g/dL RDW Std Deviation (36.4-46.3) fL RDW Coeff of Kylee (11.5-14.5) % Plt Count (130-400) K/uL MPV (9.4-12.3) fL Immature Gran % (Auto) % Neut % (Auto) % Lymph % (Auto) % Bowie % (Auto) % Eos % (Auto) % Baso % (Auto) % Neut # (Auto) (1.4-6.5) K/uL Lymph # (Auto) (1.2-3.4) K/uL Bowie # (Auto) (0.24-0.82) K/uL Eos # (Auto) (0-0.50) K/uL Baso # (Auto) (0-0.2) K/uL Immature Gran # (Auto) (0.00-0.02) K/uL Sodium (136-145) mmol/L Potassium (3.5-5.1) mmol/L Chloride (98-107) mmol/L Carbon Dioxide (21-32) mmol/L Anion Gap (3-11) BUN (6-23) mg/dl Creatinine (0.6-1.2) mg/dl Est Cr Clr Drug Dosing Est GFR ( Amer) ml/min Est GFR (Non-Af Amer) ml/min BUN/Creatinine Ratio (10-20) Glucose (70-99(Fasting)) mg/dl POC Glucose (70-99) mg/dl Calcium (8.5-10.1) mg/dl Magnesium 1.8 (1.7-2.4) mg/dl Total Bilirubin (0.2-1.0) mg/dl AST (13-39) U/L ALT (7-52) U/L Alkaline Phosphatase (34-104) U/L Total Protein (6.0-8.3) gm/dl Albumin (3.4-5.0) gm/dl Globulin (2.5-4.0) gm/dl Albumin/Globulin Ratio (0.9-2) TSH (0.300-4.500) uIu/ml Urine Color Yellow Urine Appearance Clear (Clear) Urine pH 5.5 (4.5-7.5) Ur Specific [place] 1.019 (1.000-1.030) Urine Protein 3+ H (Negative) Urine Glucose (UA) Negative (Negative) Urine Ketones Trace H (Negative) Urine Blood Negative (Negative) Urine Nitrite Negative (Negative) Urine Bilirubin Negative (Negative) Urine Urobilinogen Negative (Negative) Ur Leukocyte Esterase Trace H (Negative) Urine WBC (Auto) 10-30 H (0-5) /hpf Urine RBC (Auto) 0-4 (0-4) /hpf U Hyaline Cast (Auto) 1-5 (0-5) /lpf U Epithel Cells (Auto) >30 H (0-5) /lpf Urine Bacteria (Auto) Negative (Negative) SARS-CoV-2, RNA, NAAT NEGATIVE (NEGATIVE) 07/22/22 Range/Units 22:14 WBC (4.8-10.8) K/ul RBC (3.93-5.22) M/uL Hgb (12.0-16.0) g/dl Hct (34.1-44.9) % MCV (80.0-100.0) fL MCH (25.0-34.0) pg MCHC (32.0-36.0) g/dL RDW Std Deviation (36.4-46.3) fL RDW Coeff of Kylee (11.5-14.5) % Plt Count (130-400) K/uL MPV (9.4-12.3) fL Immature Gran % (Auto) % Neut % (Auto) % Lymph % (Auto) % Bowie % (Auto) % Eos % (Auto) % Baso % (Auto) % Neut # (Auto) (1.4-6.5) K/uL Lymph # (Auto) (1.2-3.4) K/uL Bowie # (Auto) (0.24-0.82) K/uL Eos # (Auto) (0-0.50) K/uL Baso # (Auto) (0-0.2) K/uL Immature Gran # (Auto) (0.00-0.02) K/uL Sodium (136-145) mmol/L Potassium (3.5-5.1) mmol/L Chloride (98-107) mmol/L Carbon Dioxide (21-32) mmol/L Anion Gap (3-11) BUN (6-23) mg/dl Creatinine (0.6-1.2) mg/dl Est Cr Clr Drug Dosing Est GFR ( Amer) ml/min Est GFR (Non-Af Amer) ml/min BUN/Creatinine Ratio (10-20) Glucose (70-99(Fasting)) mg/dl POC Glucose 90 (70-99) mg/dl Calcium (8.5-10.1) mg/dl Magnesium (1.7-2.4) mg/dl Total Bilirubin (0.2-1.0) mg/dl AST (13-39) U/L ALT (7-52) U/L Alkaline Phosphatase (34-104) U/L Total Protein (6.0-8.3) gm/dl Albumin (3.4-5.0) gm/dl Globulin (2.5-4.0) gm/dl Albumin/Globulin Ratio (0.9-2) TSH (0.300-4.500) uIu/ml Urine Color Urine Appearance (Clear) Urine pH (4.5-7.5) Ur Specific [place] (1.000-1.030) Urine Protein (Negative) Urine Glucose (UA) (Negative) Urine Ketones (Negative) Urine Blood (Negative) Urine Nitrite (Negative) Urine Bilirubin (Negative) Urine Urobilinogen (Negative) Ur Leukocyte Esterase (Negative) Urine WBC (Auto) (0-5) /hpf Urine RBC (Auto) (0-4) /hpf U Hyaline Cast (Auto) (0-5) /lpf U Epithel Cells (Auto) (0-5) /lpf Urine Bacteria (Auto) (Negative) SARS-CoV-2, RNA, NAAT (NEGATIVE) Administered Medications Acetaminophen (Acetaminophen 500 Mg Tab) 1,000 mg PO Q8H KOBI Stop: 08/21/22 21:59 Last Admin: 07/23/22 11:31 Dose: 1,000 mg Documented By: Admin: 07/23/22 05:20 Dose: 1,000 mg Documented By: Admin: 07/22/22 22:01 Dose: 1,000 mg Documented By: QGV Amlodipine Besylate (Amlodipine Besylate 5 Mg Tab) 10 mg PO QAM KOBI Stop: 08/22/22 08:59 Last Admin: 07/23/22 07:43 Dose: 10 mg Documented By: VERONICA Aspirin (Aspirin 81 Mg Ectab) 81 mg PO QDL KOBI Stop: 08/22/22 11:29 Last Admin: 07/23/22 13:13 Dose: 81 mg Documented By: VERONICA Buspirone HCl (Buspirone 15 Mg Tab) 30 mg PO BID KOBI Stop: 08/21/22 21:14 Last Admin: 07/23/22 07:42 Dose: 30 mg Documented By: Admin: 07/22/22 22:01 Dose: 30 mg Documented By: QGV Gabapentin (Gabapentin 100 Mg Cap) 200 mg PO TID KOBI Stop: 08/22/22 08:59 Last Admin: 07/23/22 11:30 Dose: 200 mg Documented By: Admin: 07/23/22 07:42 Dose: 200 mg Documented By: VERONICA Insulin Aspart (Insulin Aspart Per Unit) 0 units SC ACHS KOBI Stop: 08/21/22 21:54 Last Admin: 07/23/22 11:31 Dose: Not Given Documented By: Admin: 07/23/22 08:56 Dose: Not Given Documented By: Admin: 07/22/22 22:23 Dose: Not Given Documented By: QGV Co-signed By: BLANCA Metoprolol Succinate (Metoprolol Succ 25mg Ext Rel Tab) 25 mg PO QAM KOBI Stop: 08/22/22 08:59 Last Admin: 07/23/22 07:43 Dose: 25 mg Documented By: VERONICA Pantoprazole Sodium (Pantoprazole 40 Mg Tab) 40 mg PO DAILY KOBI Stop: 08/22/22 08:59 Last Admin: 07/23/22 07:43 Dose: 40 mg Documented By: VERONICA Discontinued Medications Fentanyl Citrate (Fentanyl Citrate 100 Mcg/2 Ml Vial) 25 mcg IV NOW STA Stop: 07/22/22 18:08 Last Admin: 07/22/22 18:15 Dose: 25 mcg Documented By: QGV Gabapentin (Gabapentin 100 Mg Cap) 200 mg PO NOW STA Stop: 07/23/22 01:22 Last Admin: 07/23/22 01:36 Dose: 200 mg Documented By: LM Hydralazine HCl (Hydralazine Hcl 20 Mg/Ml Vial) 5 mg IV NOW ONE Stop: 07/23/22 00:47 Last Admin: 07/23/22 01:33 Dose: 5 mg Documented By: LM Sodium Chloride (Nss) 500 mls @ 999 mls/hr IV .Q31M KOBI Stop: 07/22/22 18:45 Last Infusion: 07/22/22 18:49 Dose: 0 mls/hr Documented By: Admin: 07/22/22 18:18 Dose: 999 mls/hr Documented By: QGV Magnesium Sulfate/Dextrose (Magnesium Sulfate / D5w) 1 gm in 100 mls @ 50 mls/hr IV ONE ONE Stop: 07/22/22 23:05 Last Infusion: 07/23/22 00:09 Dose: 0 mls/hr Documented By: Admin: 07/22/22 22:06 Dose: 50 mls/hr Documented By: QGV Lactated Ringer's (Lr) 1,000 mls @ 80 mls/hr IV .[id number] KOBI Stop: 07/23/22 09:44 Last Infusion: 07/23/22 09:15 Dose: 0 mls/hr Documented By: Admin: 07/22/22 22:03 Dose: 80 mls/hr Documented By: QGV Ondansetron HCl (Ondansetron Inj 2 Mg/Ml 2 Ml Vial) 4 mg IV NOW STA Stop: 07/22/22 18:08 Last Admin: 07/22/22 18:15 Dose: 4 mg Documented By: QGV Potassium Chloride (Potassium Chloride Crtab 20 Meq Tabcr) 20 meq PO Q2H KOBI Stop: 07/23/22 03:06 Last Admin: 07/23/22 00:18 Dose: 20 meq Documented By: QGV(2) Admin: 07/23/22 00:17 Dose: 20 meq Documented By: QGV(2) Admin: 07/23/22 00:11 Dose: 20 meq Documented By: QGV(2) Admin: 07/22/22 22:01 Dose: 20 meq Documented By: QGV Trazodone HCl (Trazodone Hcl 50 Mg Tab) 25 mg PO NOW ONE Stop: 07/23/22 00:50 Last Admin: 07/23/22 01:35 Dose: 25 mg Documented By: BS Imaging Data Radiologist's Impression: Cervical Spine CT 07/22/22 18:06 CT SCAN OF THE CERVICAL SPINE CLINICAL HISTORY: Falls. COMPARISON STUDY: No priors. TECHNIQUE: CT scan of the cervical spine is performed from the skull base to the upper thoracic spine. Images are reviewed in the axial, sagittal, and coronal planes. IV contrast was not administered for this examination. A dose lowering technique was utilized adhering to the principles of ALARA. CT DOSE: 975.52 mGy.cm FINDINGS: Skeletal structures: The skeletal structures are osteopenic. There is no evidence of fracture or subluxation involving the cervical spine. Vertebral body height and alignment are maintained. There is straightening of the cervical lordosis. Anterior osteophytes are seen throughout. The odontoid process and lateral masses are intact. The atlantoaxial articulation is preserved no definite advanced productive degenerative change. The spinous processes appear intact. There is moderate multilevel cervical spondylosis. Uncovertebral and facet arthropathy contribute to neural foraminal narrowing at several levels. Intervertebral discs: There is moderate to severe disc space narrowing at all cervical levels between C3-C4 and C6-C7. There is associated multilevel degenerative sclerosis. Central canal: Posterior disc osteophyte complexes are seen at all cervical levels between C3-C4 and C6-C7, as well as T1-T2. This likely relates to multilevel acquired compromise of the central canal. Soft tissues: The prevertebral and paraspinous soft tissues are within normal limits. The thyroid gland is enlarged and heterogeneous indicative of goiter. There is atherosclerotic calcification of the carotid bulbs. A punctate calcified sialolith is noted in the left parotid gland. Calvarium: The visualized calvarium at the skull base appears intact. Brain parenchyma: Partially visualized brain parenchyma at the skull base is within normal limits. Sinuses and mastoids: There is trace mucosal thickening in the right maxillary antrum. The mastoid air cells are well pneumatized. Cerumen is noted in the exte rnal auditory canals. Lung apices: A calcified granuloma is noted at the left apex. Apical lung pa renchyma is otherwise clear as visualized. IMPRESSION: 1. There is no evidence of fracture or subluxation involving the cervical spine. 2. Osteopenia and spondylotic changes as above. ACT 112: Negative or not required by law. Electronically signed by: Hang Molina M.D. 07/22/2022 7:[address] 07/22/22 18:06 CT SCAN OF THE BRAIN WITHOUT IV CONTRAST CLINICAL HISTORY: Fall. COMPARISON STUDY: CT of the brain dated 11/23/2016. TECHNIQUE: Unenhanced axial CT scan of the brain is performed from the vertex to the skull base. A dose lowering technique was utilized adhering to the principles of ALARA. FINDINGS: Brain parenchyma: There is age-related involutional change noting moderate subcortical and periventricular microangiopathic disease. There is no hemorrhage, mass effect, or evidence of acute territorial ischemia by CT criteria. Zelaya-white matter differentiation is preserved. No extra-axial fluid collection is seen. Mineralization is noted in the basal ganglia. Ventricles, sulci, cisterns: Prominent secondary to involutional change. Intracranial vasculature: There is atherosclerotic calcification of the cavernous carotid and vertebral artery. Calvarium: The skeletal structures are osteopenic. No depressed calvarial fracture is identified. Sinuses and mastoids: The visualized paranasal sinuses are clear. The mastoid air cells are well pneumatized. Orbits: The bony orbits are grossly intact. There are bilateral ocular lens implants. IMPRESSION: There is no hemorrhage, mass effect, or evidence of acute te rritorial ischemia by CT criteria. ACT 112: Negative or not required by law. Electronically signed by: Hang Molina M.D. 07/22/2022 7:12 PM Hip/Pelvis X-Ray 07/22/22 18:06 SINGLE VIEW PELVIS; 2 VIEWS LEFT HIP; 2 VIEWS RIGHT HIP CLINICAL HISTORY: Fall. Hip pain. FINDINGS: An AP view of the pelvis with AP and frog leg views of the right and left hip are compared to study dated 05/09/2022. The skeletal structures are osteopenic. There is no radiographic evidence of acute fracture involving the hips or bony pelvis. There is chronic posttraumatic deformity of the right pubic ring. Bilateral hip arthroplasties are in place. No periprosthetic lucency is seen. 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 Sclerotic change is noted in the sacroiliac joints and pubic symphysis. Advanced lumbosacral spondylosis is partially visualized. The overlying soft tissues are normal as imaged. There is atherosclerotic calcification of the femoral arteries. IMPRESSION: 1. No acute bony abnormality is identified. 2. Osteopenia with chronic and postoperative changes as above. Electronically signed by: Hang Molina M.D. 07/22/2022 8:09 PM Knee X-Ray 07/22/22 18:06 LEFT KNEE 2 VIEWS CLINICAL HISTORY: Fall with left knee pain. FINDINGS: AP and crosstable lateral views of the left knee are compared to study dated 04/23/2020. The skeletal structures are osteopenic. No fracture is seen. A left knee arthroplasty is in near anatomic alignment. No periprosthetic lucency is identified. There has been undersurface remodeling of the patella. Suspect a small joint effusion. There is mild prepatellar soft tissue swelling. Athero sclerotic calcification is noted in the popliteal artery. IMPRESSION: 1. Mild soft tissue swelling with no fracture identified. 2. A left knee arthroplasty is in near anatomic alignment. Electronically signed by: Hang Molina M.D. 07/22/2022 8:[address] 07/22/22 18:06 CT SCAN OF THE LUMBAR SPINE WITHOUT IV CONTRAST CLINICAL HISTORY: Falls. Low back pain. COMPARISON STUDY: CT of the lumbar spine dated 11/12/2020. TECHNIQUE: CT scan of the lumbar spine is performed from the lower thoracic spine to the sacrum. Images are reviewed in the axial, sagittal, and coronal planes. IV contrast was not administered for this examination. A dose lowering technique was utilized adhering to the principles of ALARA. CT DOSE: 463.23 mGycm FINDINGS: The skeletal structures are osteopenic. Vertebral body height is maintained throughout the lumbar spine. There is minimal retrolisthesis at L1- L2. Minimal anterolisthesis is seen at L4-L5. Alignment is otherwise preserved. There is mild lumbar scoliosis. There is hyperlordosis. Anterior and lateral marginal osteophytes are seen throughout. No lytic or blastic lesion is identified. There is a left-sided pars defect at L5. There is no evidence of acute fracture or malalignment. The transverse and spinous processes appear intact. Advanced facet arthropathy is seen in the lower lumbar region. There is advanced disc space narrowing at L2-L3 with associated endplate sclerosis. Moderate to advanced disc space narrowing is seen at the remaining lumbar levels. Posterior disc osteophyte complexes are seen at all lumbar levels. This contributes to multilevel acquired compromise of the central canal. There is an age-indeterminate insufficiency fracture of the right sacral ala. Fatty atrophy is noted in the paraspinous musculature. Simple and complex bilateral renal cysts measure up to 4.1 cm. There is advanced atherosclerotic calcification of a normal caliber abdominal aorta. Cholecystectomy clips are noted. No retroperitoneal lymphadenopathy is seen. Adrenal calcifications are similar to previous. IMPRESSION: 1. There is no evidence of acute fracture or malalignment involving the lumbar spine. 2. Age-indeterminate insufficiency fracture of the right sacral ala. This is new from the 2020 examination. 3. Osteopenia and spondylotic change as above. ACT 112: Negative or not required by law. Dictated: 07/22/2022 7:13 PM Transcribed: 07/22/2022 7:27 PM Kristan [id number] [email or web address] Electronically signed by: Hang Molina M.D. 07/22/2022 7:28 PM Discharge Plan Visit Data Chief Complaint: Fall Stated Complaint: Falls ED Provider: Erick Mccauley Discharge Problem: Frequent falls, Acute hypokalemia, Weakness, Acute dehydration Patient Disposition: Admitted As Inpatient Discharge Instructions Interventions: ED Discharge Assessment Last Done: 07/22/22 23:14
[2022-07-22] MEDS ORDERED: fentaNYL citrate 100 MCG/2 ML VIAL IV STA (18:07)
[2022-07-22] MEDS ORDERED: ONDANSETRON INJ 2 MG/ML 2 ML VIAL IV STA (18:07)
[2022-07-22] MEDS ORDERED: SODIUM CHLORIDE 0.9% 500 ML IV SCH (18:15)
[2022-07-22 18:37] LABS: Basophils # (auto) 0.05 K/uL (0-0.2); Basophils % (auto) 0.7 %; Eosinophils # (auto) 0.44 K/uL (0-0.50); Eosinophils % (auto) 6.5 %; Hemoglobin 10.7 g/dl (12.0-16.0); Immature Granulocytes # (auto) 0.03 K/uL (0.00-0.02); Immature Granulocytes % (auto) 0.4 %; Lymphocytes # (auto) 0.95 K/uL (1.2-3.4); Mean Corpuscular Hemoglobin 32.4 pg (25.0-34.0); Mean Corpuscular Hgb Conc 33.4 g/dL (32.0-36.0); Mean Platelet Volume 12.8 fL (9.4-12.3); Monocytes # (auto) 0.52 K/uL (0.24-0.82); Monocytes % (auto) 7.7 %; Neutrophils # (auto) 4.79 K/uL (1.4-6.5); Neutrophils % (auto) 70.7 %; Platelet Count 222 K/uL (130-400); RDW Standard Deviation 42.5 fL (36.4-46.3); White Blood Count 6.78 K/ul (4.8-10.8)
[2022-07-22 18:59] LABS: Alanine Aminotransferase 10 U/L (7-52); Albumin Globulin Ratio 2.3 (0.9-2); Albumin Level 3.6 gm/dl (3.4-5.0); Alkaline Phosphatase 39 U/L (34-104); Anion Gap 10 (3-11); Aspartate Aminotransferase 17 U/L (13-39); BUN Creatinine Ratio 22.7 (10-20); Bilirubin,Total 0.5 mg/dl (0.2-1.0); Blood Urea Nitrogen 25 mg/dl (6-23); Calcium 9.6 mg/dl (8.5-10.1); Carbon Dioxide 23 mmol/L (21-32); Chloride 112 mmol/L (98-107); Est GFR (African American) 54.1 ml/min; Est GFR (Non-African American) 46.7 ml/min; Globulin 1.6 gm/dl (2.5-4.0); Glucose 96 mg/dl (70-99(Fasting)); Potassium 2.6 mmol/L (3.5-5.1); Sodium 145 mmol/L (136-145); Total Protein 5.2 gm/dl (6.0-8.3)
--- NOTE | 2022-07-22 19:14 | CT Scan Report ---
CT SCAN OF THE BRAIN WITHOUT IV CONTRAST CLINICAL HISTORY: Fall. COMPARISON STUDY: CT of the brain dated 11/23/2016. TECHNIQUE: Unenhanced axial CT scan of the brain is performed from the vertex to the skull base. A do se lowering technique was utilized adhering to the principles of ALARA. FINDINGS: Brain parenchyma: There is age-related involutional change noting moderate subcortical and periventri cular microangiopathic disease. There is no hemorrhage, mass effect, or evidence of acute territorial ischemia by CT criteria. Zelaya-white matter differentiation is preserved. No extra-axial fluid collec tion is seen. Mineralization is noted in the basal ganglia. Ventricles, sulci, cisterns: Prominent secondary to involutional change. Intracranial vasculature: There is atherosclerotic calcification of the cavernous carotid and vertebr al artery. Calvarium: The skeletal structures are osteopenic. No depressed calvarial fracture is identified. Sinuses and mastoids: The visualized paranasal sinuses are clear. The mastoid air cells are well pneu matized. Orbits: The bony orbits are grossly intact. There are bilateral ocular lens implants. IMPRESSION: There is no hemorrhage, mass effect, or evidence of acute territorial ischemia by CT augustine early. ACT 112: Negative or not required by law. Electronically signed by: Hang Molina M.D. 07/22/2022 7:12 PM
--- NOTE | 2022-07-22 19:27 | CT Scan Report ---
CT SCAN OF THE CERVICAL SPINE CLINICAL HISTORY: Falls. COMPARISON STUDY: No priors. TECHNIQUE: CT scan of the cervical spine is performed from the skull base to the upper thoracic spine . Images are reviewed in the axial, sagittal, and coronal planes. IV contrast was not administered fo r this examination. A dose lowering technique was utilized adhering to the principles of ALARA. CT DOSE: 975.52 mGy.cm FINDINGS: Skeletal structures: The skeletal structures are osteopenic. There is no evidence of fracture or subl uxation involving the cervical spine. Vertebral body height and alignment are maintained. There is s traightening of the cervical lordosis. Anterior osteophytes are seen throughout. The odontoid process and lateral masses are intact. The atlantoaxial articulation is preserved no definite advanced produ ctive degenerative change. The spinous processes appear intact. There is moderate multilevel cervical spondylosis. Uncovertebral and facet arthropathy contribute to neural foraminal narrowing at several levels. Intervertebral discs: There is moderate to severe disc space narrowing at all cervical levels between C3-C4 and C6-C7. There is associated multilevel degenerative sclerosis. Central canal: Posterior disc osteophyte complexes are seen at all cervical levels between C3-C4 and C6-C7, as well as T1-T2. This likely relates to multilevel acquired compromise of the central canal. Soft tissues: The prevertebral and paraspinous soft tissues are within normal limits. The thyroid gla nd is enlarged and heterogeneous indicative of goiter. There is atherosclerotic calcification of the carotid bulbs. A punctate calcified sialolith is noted in the left parotid gland. Calvarium: The visualized calvarium at the skull base appears intact. Brain parenchyma: Partially visualized brain parenchyma at the skull base is within normal limits. Sinuses and mastoids: There is trace mucosal thickening in the right maxillary antrum. The mastoid ai r cells are well pneumatized. Cerumen is noted in the external auditory canals. Lung apices: A calcified granuloma is noted at the left apex. Apical lung parenchyma is otherwise johanna ar as visualized. IMPRESSION: 1. There is no evidence of fracture or subluxation involving the cervical spine. 2. Osteopenia and spondylotic changes as above. ACT 112: Negative or not required by law. Electronically signed by: Hang Molina M.D. 07/22/2022 7:25 PM
--- NOTE | 2022-07-22 19:29 | CT Scan Report ---
CT SCAN OF THE LUMBAR SPINE WITHOUT IV CONTRAST CLINICAL HISTORY: Falls. Low back pain. COMPARISON STUDY: CT of the lumbar spine dated 11/12/2020. TECHNIQUE: CT scan of the lumbar spine is performed from the lower thoracic spine to the sacrum. Imag es are reviewed in the axial, sagittal, and coronal planes. IV contrast was not administered for this examination. A dose lowering technique was utilized adhering to the principles of ALARA. CT DOSE: 463.23 mGycm FINDINGS: The skeletal structures are osteopenic. Vertebral body height is maintained throughout the lumbar spine. There is minimal retrolisthesis at L1-L2. Minimal anterolisthesis is seen at L4-L5. Ali gnment is otherwise preserved. There is mild lumbar scoliosis. There is hyperlordosis. Anterior and l ateral marginal osteophytes are seen throughout. No lytic or blastic lesion is identified. There is a left-sided pars defect at L5. There is no evidence of acute fracture or malalignment. The transverse and spinous processes appear intact. Advanced facet arthropathy is seen in the lower lumbar region. There is advanced disc space narrowing at L2-L3 with associated endplate sclerosis. Moderate to advan bakari disc space narrowing is seen at the remaining lumbar levels. Posterior disc osteophyte complexes are seen at all lumbar levels. This contributes to multilevel acquired compromise of the central ayaka l. There is an age-indeterminate insufficiency fracture of the right sacral ala. Fatty atrophy is not ed in the paraspinous musculature. Simple and complex bilateral renal cysts measure up to 4.1 cm. The re is advanced atherosclerotic calcification of a normal caliber abdominal aorta. Cholecystectomy cli ps are noted. No retroperitoneal lymphadenopathy is seen. Adrenal calcifications are similar to previ ous. IMPRESSION: 1. There is no evidence of acute fracture or malalignment involving the lumbar spine. 2. Age-indeterminate insufficiency fracture of the right sacral ala. This is new from the 2020 examin ation. 3. Osteopenia and spondylotic change as above. ACT 112: Negative or not required by law. Dictated: 07/22/2022 7:13 PM Transcribed: 07/22/2022 7:27 PM Kristan [id number] [email or web address] Electronically signed by: Hang Molina M.D. 07/22/2022 7:28 PM
--- NOTE | 2022-07-22 20:12 | XRay Report ---
LEFT KNEE 2 VIEWS CLINICAL HISTORY: Fall with left knee pain. FINDINGS: AP and crosstable lateral views of the left knee are compared to study dated 04/23/2020. The skeletal structures are osteopenic. No fracture is seen. A left knee arthroplasty is in near anatomic alignment. No periprosthetic lucency is identified. There has been undersurface remodeling of the pa tella. Suspect a small joint effusion. There is mild prepatellar soft tissue swelling. Atheroscleroti c calcification is noted in the popliteal artery. IMPRESSION: 1. Mild soft tissue swelling with no fracture identified. 2. A left knee arthroplasty is in near anatomic alignment. Electronically signed by: Hang Molina M.D. 07/22/2022 8:11 PM
--- NOTE | 2022-07-22 20:12 | XRay Report ---
SINGLE VIEW PELVIS; 2 VIEWS LEFT HIP; 2 VIEWS RIGHT HIP CLINICAL HISTORY: Fall. Hip pain. FINDINGS: An AP view of the pelvis with AP and frog leg views of the right and left hip are compared to study dated 05/09/2022. The skeletal structures are osteopenic. There is no radiographic evidence o f acute fracture involving the hips or bony pelvis. There is chronic posttraumatic deformity of the r ight pubic ring. Bilateral hip arthroplasties are in place. No periprosthetic lucency is seen. Protru sio acetabuli is noted on the right with subjacent cement material and extensive buttress plate fixat ion of the right iliac wing. Sclerotic change is noted in the sacroiliac joints and pubic symphysis. Advanced lumbosacral spondylosis is partially visualized. The overlying soft tissues are normal as im aged. There is atherosclerotic calcification of the femoral arteries. IMPRESSION: 1. No acute bony abnormality is identified. 2. Osteopenia with chronic and postoperative changes as above. Electronically signed by: Hang Molina M.D. 07/22/2022 8:09 PM
[2022-07-22 21:05] LABS: Appearance Urine Clear (Clear); Bacteria Urine Automated Negative (Negative); Bilirubin Urine Negative (Negative); Blood Urine Negative (Negative); Color Urine Yellow; Epithelial Cell Urine Auto >30 /lpf (0-5); Glucose Urine UA Negative (Negative); Ketones Urine Trace (Negative); Leukocyte Esterase Urine Trace (Negative); Nitrite Urine Negative (Negative); Protein Urine 3+ (Negative); RBC Urine Automated 0-4 /hpf (0-4); Specific Gravity Urine 1.019 (1.000-1.030); Urobilinogen Urine Negative (Negative); pH Urine 5.5 (4.5-7.5)
[2022-07-22] MEDS ORDERED: MAGNESIUM SULFATE / D5W 1 GM/100 ML BAG IV ONE (21:06)
--- NOTE | 2022-07-22 21:09 | History & Physical Report ---
Date of Service July 22, 2022 Assessment & Plan (1) Frequent falls: Plan: 82yo female with a history of HTN, HLD, DJD, osteoarthritis, and MDD presents after multiple falls at home. Multiple falls at home Patient with multiple falls at home, likely mechanical vs orthostatic given they have been occurring when getting out of bed Low suspicion for polypharmacy given no recent med changes Vitals stable; orthostatic vital signs ordered Differential includes aortic stenosis given systolic ejection murmur heard on exam, last echo (2017) only mentions mild AR Repeat echo ordered APAP 1000mg q8h scheduled PT/OT ordered Fall precautions CM consulted for home safety assessment Severe hypokalemia, QTc prolongation Potassium on admission 2.6, magnesium 1.8 QTc on admission mildly prolonged to 513 - will admit to med/telemetry KCl 20mEq PO q2h (x4 doses) ordered, will draw repeat value two hours after final KCl dose Mag sulfate 1g IV (x1) ordered Trend BMP and serum magnesium Daily EKG until hypokalemia resolves DM2 HbA1c 5.7% (07/2017), repeat level ordered Patient's home januvia held on admission Continue BSG checks, sliding-scale insulin, hypoglycemic protocol HTN: continue home regimen HLD: continue home regimen MDD: continue home regimen FEN: heart-healthy, DM2 diet; LR @ 80mL/hr (x1 bag ordered) Code status: full code DVT ppx: SCDs Held home meds: januvia PT/OT: ordered Case management: consulted for home safety assessment Dispo: med/telemetry (2) Hypertension: (3) Hyperlipidemia: (4) Diabetes: (5) Osteoarthritis: (6) Depression: (7) Degenerative disc disease: History of Present Illness Primary Care Provider: Keny Henriquez MD 82yo female with a history of HTN, HLD, DJD, osteoarthritis, and MDD presents after multiple falls at home. Patient's family reports patient has fallen four times in the past 72 hours, usually while getting out of bed. Patient denies prodromal symptoms including CP, SOB, lightheadedness, dizziness, or vision changes. Reports feeling weakness in her legs when standing though she notes this is not new and does not feel any worse recently compared to normal. Complaining of right hip pain but denies post-ictal symptoms now or following any of the recent falls. Patient denies LOC or head trauma. Not on anticoagulation. No recent med changes. Patient uses a walker and reports adherence with this. Patient lives alone in a two-story home; her bedroom is on the second floor. Denies recent difficulty walking up or down stairs. Patient denies current or recent fever, chills, headache, vision changes, CP, palpitations, SOB, edema, abdominal pain, nausea, vomiting, dysuria, hematochezia, melena, back pain, numbness, tingling, or other symptoms. Denies recent illness and recent travel. Upon arrival, vitals were notable for elevated BP (150-170s/80-100s); no tachycardia or tachypnea, patient afebrile, spO2 adequate on room air. Initial labs were notable for mild anemia (10.7) and severe hypokalemia (2.6). No leukocytosis, platelets wnl, no other electrolyte abnormalities, LFTs not elevated, TSH wnl. CT head: there is no hemorrhage, mass effect, or evidence of acute territorial ischemia by CT criteria CT C-spine: osteopenia and spondylotic changes noted; no evidence of fracture or subluxation involving the cervical spine CT L-spine: osteopenia and spondylotic change as above; age-indeterminate insufficiency fracture of the right sacral ala, new from the 2020 examination; no evidence of acute fracture or malalignment involving the lumbar spine XR hip: osteopenia with chronic and postoperative changes; no acute bony abnormality is identified XR left knee: mild soft tissue swelling with no fracture identified; left knee arthroplasty is in near anatomic alignment In the ED, patient received an NSS 500mL bolus (x1), zofran 4mg IV (x1), and fentanyl 25mcg IV (x1). Surrogate decision-maker in case of an emergency: daughter Juliet Greenberg (cell: [phone]) Allergies Allergy/AdvReac Type Severity Reaction Status Date / Time morphine AdvReac Unknown "BECAME Verified 04/04/22 15:41 PALE AND NEARLY PASSED OUT WITH NURSING UNIT MANAGER MORPHINE" Home Medications Medication Instructions Recorded Confirmed Type amlodipine 10 mg tablet 10 mg PO QAM 11/12/20 07/22/22 History aspirin 81 mg tablet,delayed 81 mg PO QDL 11/12/20 07/22/22 History release buspirone 30 mg tablet 30 mg PO BID 11/12/20 07/22/22 History metoprolol succinate 25 mg 25 mg PO QAM 11/12/20 07/22/22 History tablet,extended release 24 hr simvastatin 10 mg tablet 10 mg PO QPM 11/12/20 07/22/22 History sitagliptin 50 mg tablet (Januvia) 50 mg PO QAM 11/12/20 07/22/22 History tramadol 50 mg tablet 50 mg PO DAILY 11/12/20 07/22/22 History acetaminophen 500 mg tablet 500 mg PO Q6H PRN Pain 01/01/21 07/22/22 History (Tylenol Extra Strength) gabapentin 100 mg capsule 200 mg PO TID 04/06/22 07/22/22 History pantoprazole 20 mg tablet,delayed 20 mg PO DAILY 04/06/22 07/22/22 History release trazodone 50 mg tablet 25 mg PO HS 04/06/22 07/22/22 History Past Med/Surg History Medical History Acute kidney failure Degenerative disc disease Depression Diabetes NIDDM Hx: UTI (urinary tract infection) Hyperlipidemia Hypertension LBBB (left bundle branch block) doesn't follow with cardio Osteoarthritis Sacral osteomyelitis Sacral ulcer Sacral wound UTI (urinary tract infection) Surgical History History of adenoidectomy History of appendectomy History of arthroscopy RIGHT HIP History of cholecystectomy History of colonoscopy History of tonsillectomy History of tooth extraction History of total hip arthroplasty BILAT History of total knee replacement BILAT Hx of breast biopsy BENIGN S/P epidural steroid injection Sacral osteomyelitis with surgical intervention Family History Father Diabetes Mother Diabetes Social History Smoking Status: Former smoker Smoking End Date: 20 years ago; Second Hand Exposure: No; Hx Alcohol Use: No Hx Substance Use: No Preferred Language: Chinese Communication Ability: Effective Edge Roller Required: No Beliefs That Will Affect Care: None marital status: / Current Living Situation: Alone Current Living Situation Comment: pt stated nephew nearby to help with needs Other Information That Helps Us Care for You: No Feels Safe at Home: Hesitant to Answer Safety Concerns: Feels Safe At This Time Assistive Devices: Lift Chair, Stair Lift and Walker Physical Exam Physical Exam: Constitutional: well-appearing, no acute distress HEENT: NCAT, MMM CV: regular rhythm, grade 3/6 systolic ejection murmur appreciated, extremities well-perfused, no LE edema Resp: CTABL, no wheezes/rales/rhonchi appreciated, no increased work of breathing GI: soft, nondistended, nontender, BS normoactive MSK: mild R hip tenderness, mild posterior neck tenderness Neuro: alert, oriented, no focal neurologic deficit appreciated Results & Data Results & Data ([facility]) Vital Signs (Past 12 Hours) Vital Signs Temp Pulse Resp BP Pulse Ox O2 Del Method 07/22/22 20:20 59 L 18 159/80 H 96 07/22/22 18:00 176/82 H 07/22/22 18:06 66 20 93 Room Air 07/22/22 16:56 37.1 C 69 14 155/108 H 96 Room Air Supervising Physician Co-Signing Physician Notes Attending addendum: I have physically seen this patient, have supervised the medical residents activities, and agree with the H&P unless as otherwise noted. Assessment and Plan: Multiple falls at home- Multifactorial Progression of general debilitation Hypokalemia Consult PT/OT Tylenol as noted. Fall precautions Hypokalemia- Potassium 2.6, magnesium 1.8 Replace both orally and IV as noted Follow serial BMP and magnesium levels Follow on telemetry for possible arrhythmias while being treated Diabetes mellitus- Hold Januvia Placed on Accu-Cheks before meals and at bedtime with NovoLog coverage per scale Remaining orders and notations as noted Resident Activity Tracking Resident Involvement: Resident Care Provided and Workforce Management Manager Coverage Note Care Provided: Adult Hospital Medicine
[2022-07-22] MEDS ORDERED: LACTATED RINGER'S 1,000 ML IV SCH (21:15)
[2022-07-22] MEDS ORDERED: GLUCOSE 40% GEL 15 GM TUBE PO PRN (21:49)
[2022-07-22] MEDS ORDERED: CARBOHYDRATES FOR HYPOGLYCEMIA PO PRN (21:49)
[2022-07-22] MEDS ORDERED: DEXTROSE 50% 50 ML SYRINGE IV PRN (21:49)
[2022-07-22] MEDS ORDERED: GLUCOSE 10 TAB/TUBE PO PRN (21:49)
[2022-07-22] MEDS ORDERED: GLUCAGON FOR INJ 1 MG VIAL SQ PRN (21:49)
[2022-07-22] MEDS: ACETAMINOPHEN 500 MG TAB PO SCH (22:01)
[2022-07-22] MEDS: POTASSIUM CHLORIDE CRTAB 20 MEQ TABCR PO SCH (22:01)
[2022-07-22] MEDS: busPIRone 15 MG TAB PO SCH (22:01)
[2022-07-22] MEDS: INSULIN ASPART PER UNIT SC SCH (22:23)
[2022-07-23] MEDS: POTASSIUM CHLORIDE CRTAB 20 MEQ TABCR PO SCH ×3 (00:11→00:18)
[2022-07-23] MEDS ORDERED: hydrALAZINE HCL 20 MG/ML VIAL IV ONE (00:46)
[2022-07-23] MEDS ORDERED: traZODone HCL 50 MG TAB PO ONE (00:49)
[2022-07-23] MEDS ORDERED: GABAPENTIN 100 MG CAP PO STA (01:21)
[2022-07-23] MEDS: ACETAMINOPHEN 500 MG TAB PO SCH ×3 (05:20→21:00)
[2022-07-23 07:04] LABS: Hematocrit (blood only) 30.1 % (34.1-44.9); Hemoglobin 10.1 g/dl (12.0-16.0); Mean Corpuscular Hemoglobin 32.5 pg (25.0-34.0); Mean Corpuscular Hgb Conc 33.6 g/dL (32.0-36.0); Mean Corpuscular Volume 96.8 fL (80.0-100.0); Mean Platelet Volume 12.3 fL (9.4-12.3); Platelet Count 206 K/uL (130-400); RDW Coefficient of Variation 12.1 % (11.5-14.5); RDW Standard Deviation 42.6 fL (36.4-46.3); Red Blood Count 3.11 M/uL (3.93-5.22); White Blood Count 5.56 K/ul (4.8-10.8)
[2022-07-23 07:28] LABS: BUN Creatinine Ratio 23.3 (10-20); Calcium 8.8 mg/dl (8.5-10.1); Chol HDL Ratio 5.2 (0-5); Creatinine Clr Calc Pharmacy 41.6 ml/min; Est GFR (Non-African American) 59.5 ml/min; Magnesium 1.9 mg/dl (1.7-2.4); Potassium 3.6 mmol/L (3.5-5.1)
[2022-07-23] MEDS: busPIRone 15 MG TAB PO SCH ×2 (07:42→20:39)
[2022-07-23] MEDS: GABAPENTIN 100 MG CAP PO SCH ×3 (07:42→20:39)
[2022-07-23] MEDS: amLODIPine BESYLATE 5 MG TAB PO SCH (07:43)
[2022-07-23] MEDS: METOPROLOL SUCC 25MG EXT REL TAB PO SCH (07:43)
[2022-07-23] MEDS: PANTOprazole 40 MG TAB PO SCH (07:43)
[2022-07-23 08:10] LABS: Estimated Average Glucose 94 mg/dl; Hemoglobin A1C 4.9 % (4.5-5.6)
[2022-07-23] MEDS: INSULIN ASPART PER UNIT SC SCH ×4 (08:56→19:45)
[2022-07-23] MEDS: ASPIRIN 81 MG ECTAB PO SCH (13:13)
--- NOTE | 2022-07-23 14:17 | Hospitalist Progress Note ---
Date of Service July 23, 2022 Assessment & Plan (1) Frequent falls: Plan: - Patient with multiple falls at home, likely mechanical vs orthostatic given they have been occurring when getting out of bed - Low suspicion for polypharmacy given no recent med changes - Vitals stable; orthostatic vital signs ordered x2 but still not checked or at least not placed on chart for review - Differential includes aortic stenosis given systolic ejection murmur heard on exam, last echo (2017) only mentions mild AR - Repeat echo ordered, still not yet done - APAP 1000mg q8h scheduled - PT/OT ordered-- recommending rehab - Fall precautions - CM consulted for home safety assessment (2) Acute hypokalemia: Plan: - Replaced/resolved (3) Diabetes: Plan: - Repeat a1c pending - Takes Januvia at home which is on hold - Continue BSG checks achs with sliding scale insulin - Diabetic diet (4) Hypertension: Plan: - On Toprol XL and Amlodipine - BP accelerated late this AM at 180 systolic, will have nursing recheck - If still elevated, add Hydralazine PRN Plan Discussed with case management, plan is for acute rehab. Referrals sent. Await echo. Continue PT/OT. No need for repeat labs tomorrow. Plan to be d/w Dr. Arreguin. Admission and Anticipated Discharge Date Admission Date: July 22, 2022 Subjective Patient seen on daily rounds this morning. She is resting at bedside, working with PT. Reports no symptoms of dizziness/lightheadedness, dyspnea, cp, headache. Did mention that she was having some right lower leg pain. She was hospitalized yesterday with frequent falls, no LOC. Found to have an age- indeterminant insufficiency fracture of the right sacral ala. Otherwise, no fractures. CT head negative. Pt agreeable to going to rehab. Review of Systems Review of Systems: All systems reviewed and are unremarkable except as noted in HPI and below. Denies fever, chills, fatigue, headache, nasal congestion, sore throat, cough, chest pain, shortness of breath, palpitations, orthopnea, PND, abdominal pain, n/v/d, constipation, dysuria, hematuria, frequency, back pain, joint pain or swelling, easy bruising or bleeding, skin lesions or rashes. Physical Exam Physical Exam: GENERAL: 82 yo Well-developed, well nourished but thin elderly WF. NAD. LUNGS: Clear to auscultation bilaterally. No W/R/R. CARDIOVASCULAR: Regular rate and rhythm. 2/6 oswaldo noted. ABDOMEN: Soft, non-tender and non-distended. BS normoactive x 4 quad. EXTREMITIES: No edema. Non-tender. Peripheral pulses +2/4. NEUROLOGIC: A&O x3. Nonfocal PSYCHIATRIC: Cooperative. Appropriate mood and affect. SKIN: Warm, dry, intact. No rashes or lesions. Results & Data Results & Data ([facility]) Vital Signs (Past 12 Hours) Vital Signs Temp Pulse Pulse Resp BP BP Pulse Ox 07/23/22 11:09 36.4 C L 62 20 186/62 H 97 07/23/22 08:40 36.4 C L 66 20 155/65 H 96 07/23/22 07:10 64 07/23/22 04:04 36.6 C 68 18 150/61 H 97 O2 Del Method 07/23/22 11:09 Room Air 07/23/22 08:40 Room Air 07/23/22 07:10 07/23/22 04:04 Room Air Laboratory Results 07/23/22 06:25 07/23/22 06:25 PG Care Time/CCT Total # of Minutes Spent Total Time Spent with Patient: Total time spent is greater than 50% in coordination of care (as documented) at patient's floor/unit and/or counseling patient: Coding Level of Care Code 45040 Subseq Obs Care Lvl 2 Diagnoses Frequent falls R29.6 Acute hypokalemia E87.6 Diabetes E11.9 Hypertension I10
--- NOTE | 2022-07-23 16:43 | XCELERA ---
[id number]
[2022-07-23] MEDS: traZODone HCL 50 MG TAB PO SCH (20:39)
[2022-07-23] MEDS: SIMVASTATIN 10 MG TAB PO SCH (20:39)
--- NOTE | 2022-07-23 20:47 | Billing Data ---
Date of Service July 23, 2022 Coding Level of Care Code INT OBSERVATION CARE 70M LVL 3
--- NOTE | 2022-07-23 22:13 | Electrocardiogram Report ---
Test Reason : Blood Pressure : / mmHG Vent. Rate : 062 BPM Atrial Rate : 062 BPM P-R Int : 144 ms QRS Dur : 156 ms QT Int : 506 ms P-R-T Axes : 088 -47 101 degrees QTc Int : 513 ms Poor data quality, interpretation may be adversely affected Normal sinus rhythm Left axis deviation Left bundle branch block Abnormal ECG When compared with ECG of 09-MAY-2022 13:00, Premature atrial complexes are no longer Present Confirmed by Yogi Shelton ([id number]) on 07/23/2022 10:13:29 PM Referred By: REFERRED SELF Confirmed By:Yogi Shelton
--- NOTE | 2022-07-23 22:32 | Electrocardiogram Report ---
Test Reason : Blood Pressure : / mmHG Vent. Rate : 068 BPM Atrial Rate : 068 BPM P-R Int : 138 ms QRS Dur : 146 ms QT Int : 490 ms P-R-T Axes : 060 -54 070 degrees QTc Int : 521 ms Normal sinus rhythm Left axis deviation Left bundle branch block Abnormal ECG When compared with ECG of 22-JUL-2022 18:20, No significant change was found Confirmed by Yogi Shelton ([id number]) on 07/23/2022 10:32:09 PM Referred By: REFERRED SELF Confirmed By:Yogi Shelton
[2022-07-24] MEDS ORDERED: OLANZapine 10 MG/2.1 ML SDV IM STA (04:18)
[2022-07-24] MEDS: ACETAMINOPHEN 500 MG TAB PO SCH ×4 (05:23→23:07)
[2022-07-24] MEDS: INSULIN ASPART PER UNIT SC SCH ×4 (08:27→23:11)
[2022-07-24] MEDS: METOPROLOL SUCC 25MG EXT REL TAB PO SCH (08:27)
[2022-07-24] MEDS: amLODIPine BESYLATE 5 MG TAB PO SCH (08:28)
[2022-07-24] MEDS: PANTOprazole 40 MG TAB PO SCH (08:28)
[2022-07-24] MEDS: GABAPENTIN 100 MG CAP PO SCH ×3 (08:28→23:06)
[2022-07-24] MEDS: busPIRone 15 MG TAB PO SCH ×2 (08:28→20:10)
--- NOTE | 2022-07-24 11:46 | Hospitalist Progress Note ---
Date of Service July 24, 2022 Assessment & Plan (1) Altered mental status: Plan: - Very suspicious for some baseline dementia with now a component of hospital- acquired delirium - Also possible that she is experiencing metabolic encephalopathy d/t UTI (w/u in progress) - Given a dose of Zyprexa and is now a 1:1 - Will start on Seroquel 25mg HS - Attempted to contact daughter and had to leave message - Anticipate need for acute rehab and then may need a facility with a memory support unit (2) Urinary retention: Plan: - PVR of 675 cc after voiding around 0300 - Place urinary catheter - Obtain UA and C&S - Start on Flomax (3) Frequent falls: Plan: - Patient with multiple falls at home, likely mechanical vs orthostatic given they have been occurring when getting out of bed - Low suspicion for polypharmacy given no recent med changes - Vitals stable; orthostatic vital signs ordered x2 but still not checked or at least not placed on chart for review - Differential includes aortic stenosis given systolic ejection murmur heard on exam, last echo (2017) only mentions mild AR - Repeat echo ordered-- mild as and regurg noted (new from prior), also with new mildly elevated RSVP and pericardial effusion w/o evidence of tamponade - APAP 1000mg q8h scheduled - PT/OT ordered-- recommending rehab - Fall precautions - CM consulted to assist in dc planning (4) Acute hypokalemia: Plan: - Replaced/resolved (5) Diabetes: Plan: - Repeat a1c pending - Takes Januvia at home which is on hold - Continue BSG checks achs with sliding scale insulin - Diabetic diet (6) Hypertension: Plan: - On Toprol XL and Amlodipine - BP accelerated late this AM at 180 systolic, will have nursing recheck - If still elevated, add Hydralazine PRN Plan Made full admission. Case management working on d/c planning, will need rehab in the short term. Looking at [facility] who can accept pt on Thursday, may be best in the special inspector for this patient. Again, attempted to contact daughter, no answer, message left. Interventions as outlined above. Plan d/w Dr. Melgar. Admission and Anticipated Discharge Date Admission Date: July 24, 2022 Subjective Patient was seen on daily rounds this morning. She is resting in bed, calm and cooperative this morning. It was reported that patient was agitated and combative overnight. She was medicated with a dose of Zyprexa and calmed down and now is a 1:1. She ate very little breakfast according to her sitter. She does complain to me of some suprapubic abd discomfort. No n/v, cp or dyspnea. Review of Systems Review of Systems: All systems reviewed and are unremarkable except as noted in HPI and below. Denies fever, chills, fatigue, headache, nasal congestion, sore throat, cough, chest pain, shortness of breath, palpitations, orthopnea, PND, n/v/d, constipation, dysuria, hematuria, frequency, back pain, joint pain or swelling, easy bruising or bleeding, skin lesions or rashes. reliability is questionable given her confusion Physical Exam Physical Exam: GENERAL: 82 yo Well-developed, well nourished but thin elderly WF. NAD. LUNGS: Clear to auscultation bilaterally. No W/R/R. CARDIOVASCULAR: Regular rate and rhythm. 2/6 oswaldo noted. ABDOMEN: Soft, non-distended. Suprapubic tenderness to palp. BS normoactive x 4 quad. EXTREMITIES: No edema. Non-tender. Peripheral pulses +2/4. NEUROLOGIC: A&O x1 (self only) - confused as to year/place. Nonfocal PSYCHIATRIC: Cooperative. Appropriate mood and affect. SKIN: Warm, dry, intact. No rashes or lesions. Results & Data Results & Data ([facility]) Vital Signs (Past 12 Hours) Vital Signs Temp Pulse Resp BP BP Pulse Ox O2 Del Method 07/24/22 08:30 Room Air 07/24/22 08:25 36.7 C 76 16 172/61 H 96 Room Air 07/24/22 03:01 201/77 H PG Care Time/CCT Total # of Minutes Spent Total Time Spent with Patient: Total time spent is greater than 50% in coordination of care (as documented) at patient's floor/unit and/or counseling patient: Coding Level of Care Code 95231 Subseq Hosp Care Lvl 2 Diagnoses Altered mental status R41.82 Urinary retention R33.9 Frequent falls R29.6 Acute hypokalemia E87.6 Diabetes E11.9 Hypertension I10
[2022-07-24 12:33] LABS: Appearance Urine Clear (Clear); Bacteria Urine Automated Negative (Negative); Bilirubin Urine Negative (Negative); Blood Urine Trace (Negative); Cast Urine Automated 0 /lpf (0-5); Color Urine Yellow; Glucose Urine UA Negative (Negative); Ketones Urine Negative (Negative); Leukocyte Esterase Urine Negative (Negative); Nitrite Urine Negative (Negative); Protein Urine 3+ (Negative); RBC Urine Automated 0-4 /hpf (0-4); Specific Gravity Urine 1.011 (1.000-1.030); Urobilinogen Urine Negative (Negative); pH Urine 5.5 (4.5-7.5)
[2022-07-24] MEDS: ASPIRIN 81 MG ECTAB PO SCH (13:36)
[2022-07-24] MEDS: SIMVASTATIN 10 MG TAB PO SCH (20:09)
[2022-07-24] MEDS: traZODone HCL 50 MG TAB PO SCH (20:09)
[2022-07-24] MEDS: TAMSULOSIN HCL 0.4 MG CAP PO SCH (20:09)
[2022-07-24] MEDS ORDERED: QUEtiapine FUMARATE 25 MG TABLET PO SCH (21:00)
[2022-07-25] MEDS: ACETAMINOPHEN 500 MG TAB PO SCH ×4 (06:34→20:13)
[2022-07-25 06:49] LABS: Basophils # (auto) 0.02 K/uL (0-0.2); Basophils % (auto) 0.3 %; Eosinophils # (auto) 0.18 K/uL (0-0.50); Eosinophils % (auto) 2.4 %; Hematocrit (blood only) 33.2 % (34.1-44.9); Immature Granulocytes # (auto) 0.03 K/uL (0.00-0.02); Immature Granulocytes % (auto) 0.4 %; Lymphocytes # (auto) 0.62 K/uL (1.2-3.4); Lymphocytes % (auto) 8.3 %; Mean Corpuscular Hemoglobin 32.5 pg (25.0-34.0); Mean Corpuscular Hgb Conc 33.1 g/dL (32.0-36.0); Mean Corpuscular Volume 98.2 fL (80.0-100.0); Monocytes # (auto) 0.47 K/uL (0.24-0.82); Monocytes % (auto) 6.3 %; Neutrophils # (auto) 6.17 K/uL (1.4-6.5); Neutrophils % (auto) 82.3 %; Platelet Count 202 K/uL (130-400); RDW Coefficient of Variation 12.4 % (11.5-14.5); RDW Standard Deviation 44.8 fL (36.4-46.3); Red Blood Count 3.38 M/uL (3.93-5.22); White Blood Count 7.49 K/ul (4.8-10.8)
[2022-07-25 07:28] LABS: BUN Creatinine Ratio 22.1 (10-20); Calcium 8.6 mg/dl (8.5-10.1); Creatinine Clr Calc Pharmacy 43.6 ml/min; Est GFR (African American) 72.9 ml/min; Est GFR (Non-African American) 62.9 ml/min; Potassium 3.7 mmol/L (3.5-5.1)
--- NOTE | 2022-07-25 08:10 | Magnetic Resonance Report ---
MRI OF THE BRAIN WITHOUT CONTRAST CLINICAL HISTORY: Altered mental status. COMPARISON STUDY: Head CT July 22, 2022. TECHNIQUE: Utilizing a 1.5 Siri magnet and dedicated coil, multiplanar, multiecho imaging of the bra in was performed without IV contrast. FINDINGS: This exam is mildly compromised by motion artifact although is diagnostic. There are no foc i of restricted diffusion to suggest acute infarct. No acute intracranial hemorrhage, midline shift o r mass effect is present. Ventricular system is unremarkable. Basal cisterns are patent. There are no extra-axial collections. There is mild atrophy. White matter T2 hyperintense foci suggest mild small vessel disease. No intracranial masses identified on this unenhanced examination. Calvarial signal i s within normal limits. No evidence for sinusitis. No mastoid fluid. IMPRESSION: No acute intracranial findings. Exam mildly compromised by motion artifact. ACT 112: Negative or not required by law. Electronically signed by: Pedrito Calix M.D. 07/25/2022 8:09 AM
[2022-07-25] MEDS: busPIRone 15 MG TAB PO SCH ×2 (08:26→20:12)
[2022-07-25] MEDS: GABAPENTIN 100 MG CAP PO SCH ×3 (08:26→20:11)
[2022-07-25] MEDS: METOPROLOL SUCC 25MG EXT REL TAB PO SCH (08:26)
[2022-07-25] MEDS: amLODIPine BESYLATE 5 MG TAB PO SCH (08:27)
[2022-07-25] MEDS: PANTOprazole 40 MG TAB PO SCH (08:27)
[2022-07-25] MEDS: INSULIN ASPART PER UNIT SC SCH ×4 (08:37→22:29)
[2022-07-25] MEDS: ASPIRIN 81 MG ECTAB PO SCH (11:59)
--- NOTE | 2022-07-25 12:49 | Hospitalist Progress Note ---
Date of Service July 25, 2022 Assessment & Plan (1) Altered mental status: Plan: - Very suspicious for some baseline dementia with now a component of hospital-acquired delirium - Metabolic encephalopathy ruled out, UA is unremarkable for infection - Given a dose of Zyprexa and is now a 1:1 - Started on Seroquel 25mg HS on 07/24, given somnolence, will reduce dose to 12.5mg - Attempted to contact daughter and had to leave message - Anticipate need for acute rehab and then may need a facility with a memory support unit - MRI brain obtained to exclude possibility of missed stroke or other neurologic cause of worsening confusion which was negative - No longer a 1:1, removed last PM (2) Urinary retention: Plan: - PVR of 675 cc after voiding around 0300 - Place urinary catheter - Obtain UA and C&S--UA unremarkable - Start on Flomax - Can try to remove this afternoon. If unable to void spontaneously, will need to replace. - Major concern is that she will not leave this in rn long term care. (3) Frequent falls: Plan: - Patient with multiple falls at home, likely mechanical vs orthostatic given they have been occurring when getting out of bed - Low suspicion for polypharmacy given no recent med changes - Vitals stable; orthostatic vital signs ordered x2 but still not checked or at least not placed on chart for review - Differential includes aortic stenosis given systolic ejection murmur heard on exam, last echo (2017) only mentions mild AR - Repeat echo ordered-- mild as and regurg noted (new from prior), also with new mildly elevated RSVP and pericardial effusion w/o evidence of tamponade - APAP 1000mg q8h scheduled - PT/OT ordered-- recommending rehab - Fall precautions - CM consulted to assist in dc planning--likely [facility] on 07/26 (4) Acute hypokalemia: Plan: - Replaced/resolved (5) Diabetes: Plan: - Repeat a1c pending - Takes Januvia at home which is on hold - Continue BSG checks achs with sliding scale insulin - Diabetic diet (6) Hypertension: Plan: - On Toprol XL and Amlodipine - BP acceptable Plan Continue PT/OT. Case management working on d/c planning, will need rehab in the short term. Looking at [facility] who can accept pt on Thursday, which I believe will be best for this patient to transition from SNF to [facility] with memory support. Updated patient's daughter, Juliet, via phone 07/25. Plan d/w Dr. Mcclure. Admission and Anticipated Discharge Date Admission Date: July 24, 2022 Subjective Patient was seen on daily rounds this morning. She is resting in bed, very drowsy this morning. Attempted to participate with therapy but dozing off. Started on Seroquel last night due to issues with combativeness the night prior. No longer a 1:1, this was removed last night around 2300. She verbalizes no complaints this morning. Review of Systems Review of Systems: Unable to get a full accurate ROS due to her confusion/devi wsiness Physical Exam Physical Exam: GENERAL: 82 yo Well-developed, well nourished but thin elderly WF. NAD. LUNGS: Clear to auscultation bilaterally. No W/R/R. CARDIOVASCULAR: Regular rate and rhythm. 2/6 oswaldo noted. ABDOMEN: Soft, non-distended. Suprapubic tenderness to palp. BS normoactive x 4 quad. : yan in place EXTREMITIES: No edema. Non-tender. Peripheral pulses +2/4. NEUROLOGIC: A&O x1 (self only) - confused as to year/place. Nonfocal PSYCHIATRIC: Cooperative. Drowsy, falls asleep quickly SKIN: Warm, dry, intact. No rashes or lesions. Results & Data Results & Data ([facility]) Vital Signs (Past 12 Hours) Vital Signs Temp Pulse Resp BP BP Pulse Ox O2 Del Method 07/25/22 11:00 Room Air 07/25/22 07:30 36.8 C 71 18 132/62 138/53 L 95 Room Air 07/25/22 04:00 71 171/68 H 96 Room Air Laboratory Results 07/25/22 06:31 07/25/22 06:31 Diagnostic Findings Brain MRI 07/24/22 17:24 MRI OF THE BRAIN WITHOUT CONTRAST CLINICAL HISTORY: Altered mental status. COMPARISON STUDY: Head CT July 22, 2022. TECHNIQUE: Utilizing a 1.5 Siri magnet and dedicated coil, multiplanar, multiecho imaging of the brain was performed without IV contrast. FINDINGS: This exam is mildly compromised by motion artifact although is diagnostic. There are no foci of restricted diffusion to suggest acute infarct. No acute intracranial hemorrhage, midline shift or mass effect is present. Ventricular system is unremarkable. Basal cisterns are patent. There are no extra-axial collections. There is mild atrophy. White matter T2 hyperintense foci suggest mild small vessel disease. No intracranial masses identified on this unenhanced examination. Calvarial signal is within normal limits. No evidence for sinusitis. No mastoid fluid. IMPRESSION: No acute intracranial findings. Exam mildly compromised by motion artifact. ACT 112: Negative or not required by law. Electronically signed by: Pedrito Calix M.D. 07/25/2022 8:09 AM PG Care Time/CCT Total # of Minutes Spent Total Time Spent with Patient: Total time spent is greater than 50% in coordination of care (as documented) at patient's floor/unit and/or counseling patient: Coding Level of Care Code 92769 Subseq Hosp Care Lvl 2 Diagnoses Altered mental status R41.82 Urinary retention R33.9 Frequent falls R29.6 Acute hypokalemia E87.6 Diabetes E11.9 Hypertension I10
[2022-07-25] MEDS: QUEtiapine FUMARATE 25 MG TABLET PO SCH (20:10)
[2022-07-25] MEDS: SIMVASTATIN 10 MG TAB PO SCH (20:10)
[2022-07-25] MEDS: TAMSULOSIN HCL 0.4 MG CAP PO SCH (20:10)
[2022-07-25] MEDS: traZODone HCL 50 MG TAB PO SCH (20:12)
[2022-07-26] MEDS: ACETAMINOPHEN 500 MG TAB PO SCH ×3 (06:35→22:03)
[2022-07-26] MEDS: INSULIN ASPART PER UNIT SC SCH ×4 (09:30→22:02)
[2022-07-26] MEDS: METOPROLOL SUCC 25MG EXT REL TAB PO SCH (10:09)
[2022-07-26] MEDS: amLODIPine BESYLATE 5 MG TAB PO SCH (10:09)
[2022-07-26] MEDS: GABAPENTIN 100 MG CAP PO SCH ×3 (10:10→22:02)
[2022-07-26] MEDS: PANTOprazole 40 MG TAB PO SCH (10:10)
[2022-07-26] MEDS: busPIRone 15 MG TAB PO SCH ×2 (10:10→22:02)
--- NOTE | 2022-07-26 10:17 | Hospitalist Progress Note ---
Date of Service July 26, 2022 Assessment & Plan (1) Altered mental status: Plan: - Very suspicious for some baseline dementia with now a component of hospital- acquired delirium - Metabolic encephalopathy ruled out, UA is unremarkable for infection - Given a dose of Zyprexa, improved, 1:1 removed, zyprexa dose halved. Pt very somnolent mornings after Zyprexa, will trial melatonin instead - Anticipate need for acute rehab and then may need a facility with a memory support unit - MRI brain obtained to exclude possibility of missed stroke or other neurologic cause of worsening confusion which was negative - Dementia w/ superimposed intermittent delerium. Follow clinically, delerium precautions (2) Urinary retention: Plan: - PVR of 675 cc after voiding around 0300 - Piña in place - Obtain UA and C&S--UA unremarkable - Continued on flomax - Voiding trial pending (3) Frequent falls: Plan: - Patient with multiple falls at home, likely mechanical vs orthostatic given they have been occurring when getting out of bed - Low suspicion for polypharmacy given no recent med changes - Vitals stable; orthostatic vital signs pending - Differential included aortic stenosis given systolic ejection murmur heard on exam, last echo (2018) only mentions mild AR - Repeat TTE-- mild as and regurg noted (new from prior), also with new mildly elevated RSVP and pericardial effusion w/o evidence of tamponade - APAP 1000mg q8h scheduled - PT/OT ordered-- recommending rehab - Fall precautions - CM consulted to assist in dc planning, pending bed (4) Acute hypokalemia: Plan: - Replaced/resolved (5) Diabetes: Plan: - Repeat a1c pending - Takes Januvia at home which is on hold - Continue BSG checks achs with sliding scale insulin - Diabetic diet (6) Hypertension: Plan: - On Toprol XL and Amlodipine - BP acceptable Plan Continue PT/OT. Case management working on d/c planning, will need rehab in the short term. [facility] bed lost due to staffing issues. Pending other referalls, believe will be best for this patient to transition from SNF to [facility] with memory support. Admission and Anticipated Discharge Date Admission Date: July 24, 2022 Subjective Very somnolent at bedside. No acute distress. Reports feels generally achy, no focal pain. Arouses easily, not oriented to year/place,falls back asleep. Review of Systems Review of Systems: Unobtainable due to cognitive status Physical Exam Physical Exam: General: Oriented to name, somnolent. HEENT: Atraumatic, normocephalic. Vision/hearing intact Pulm: CTAB A&P. -wheezes, -rales, -rhonchi. Symmetrical chest rise. No increased work of breathing. No respiratory distress. Cardiac: RRR, sm Radial pulses intact and symmetrical. Abdominal: Nontender, nondistended, soft. BS present. : Piña in place draining light yellow urine Results & Data Results & Data ([facility]) Vital Signs (Past 12 Hours) Vital Signs Temp Pulse Resp BP Pulse Ox O2 Del Method 07/26/22 07:21 36.9 C 67 16 168/66 H 95 Room Air 07/25/22 22:53 37.2 C 79 18 162/66 H 93 Room Air PG Care Time/CCT Total # of Minutes Spent Total Time Spent with Patient: Total time spent is greater than 50% in coordination of care (as documented) at patient's floor/unit and/or counseling patient: Coding Level of Care Code 59812 Subseq Hosp Care Lvl 1 Diagnoses Altered mental status R41.82 Urinary retention R33.9 Frequent falls R29.6 Acute hypokalemia E87.6 Diabetes E11.9 Hypertension I10
[2022-07-26] MEDS: ASPIRIN 81 MG ECTAB PO SCH (12:26)
[2022-07-26] MEDS: traMADol HCL 50 MG TABLET PO PRN (18:24)
[2022-07-26] MEDS: SIMVASTATIN 10 MG TAB PO SCH (22:02)
[2022-07-26] MEDS: QUEtiapine FUMARATE 25 MG TABLET PO SCH (22:02)
[2022-07-26] MEDS: TAMSULOSIN HCL 0.4 MG CAP PO SCH (22:03)
[2022-07-26] MEDS: traZODone HCL 50 MG TAB PO SCH (22:03)
[2022-07-27] MEDS: traZODone HCL 50 MG TAB PO SCH ×2 (01:02→20:01)
[2022-07-27] MEDS: busPIRone 15 MG TAB PO SCH ×3 (01:03→20:01)
[2022-07-27] MEDS: TAMSULOSIN HCL 0.4 MG CAP PO SCH ×2 (01:03→20:01)
[2022-07-27] MEDS: SIMVASTATIN 10 MG TAB PO SCH ×2 (01:04→20:02)
[2022-07-27] MEDS: GABAPENTIN 100 MG CAP PO SCH ×4 (01:04→20:01)
[2022-07-27] MEDS: ACETAMINOPHEN 500 MG TAB PO SCH ×4 (01:04→22:15)
[2022-07-27] MEDS: QUEtiapine FUMARATE 25 MG TABLET PO SCH ×2 (01:04→20:00)
[2022-07-27] MEDS ORDERED: hydrALAZINE 10 MG TAB PO PRN (08:10)
[2022-07-27] MEDS: amLODIPine BESYLATE 5 MG TAB PO SCH (09:30)
[2022-07-27] MEDS: METOPROLOL SUCC 25MG EXT REL TAB PO SCH (09:30)
[2022-07-27] MEDS: PANTOprazole 40 MG TAB PO SCH (09:31)
[2022-07-27] MEDS ORDERED: POLYETHYLENE (MIRALAX) 17 GM PACK PO PRN (09:46)
[2022-07-27] MEDS: INSULIN ASPART PER UNIT SC SCH ×4 (09:58→22:14)
[2022-07-27] MEDS: traMADol HCL 50 MG TABLET PO PRN ×2 (10:02→15:05)
[2022-07-27] MEDS: ASPIRIN 81 MG ECTAB PO SCH ×2 (12:53→13:53)
--- NOTE | 2022-07-27 13:09 | Hospitalist Progress Note ---
Date of Service July 27, 2022 Assessment & Plan (1) Altered mental status: Plan: 82yo female with a history of HTN, HLD, DJD, osteoarthritis, and MDD presents after multiple falls at home. Patient's family reports patient has fallen four times in the past 72 hours, usually while getting out of bed. Altered mental status - Very suspicious for some baseline dementia with now a component of hospital- acquired delirium - Metabolic encephalopathy ruled out, UA is unremarkable for infection - Given a dose of Zyprexa, improved, 1:1 removed, zyprexa dose halved. Pt very somnolent mornings after Zyprexa, consider trial of melatonin instead - MRI brain obtained to exclude possibility of missed stroke or other neurologic cause of worsening confusion which was negative - Dementia w/ superimposed intermittent delirium. Follow clinically, delirium precautions. Anticipate need for rehab/SNF and then may need a facility with a memory support unit. Pending placement. Urinary retention - PVR of 675 cc after voiding around 0300 on admission - Piña in place - Obtained UA and cx- UA unremarkable - Continue flomax - Voiding trial pending Frequent falls - Patient with multiple falls at home, likely mechanical vs orthostatic given they have been occurring when getting out of bed - Low suspicion for polypharmacy given no recent med changes - Vitals stable; orthostatic vital signs pending - Differential included aortic stenosis given systolic ejection murmur heard on exam, last echo (2017) only mentions mild AR - Repeat TTE-- mild as and regurg noted (new from prior), also with new mildly elevated RSVP and pericardial effusion w/o evidence of tamponade - Acetaminophen 1000mg q8h scheduled - PT/OT: recommend rehab - Fall precautions - Pending placement as above Diabetes - A1c (07/22): 4.9 - home januvia on hold - Continue BSG checks achs with sliding scale insulin Hypertension - cont. Toprol XL and Amlodipine - BP acceptable Acute hypokalemia - Replaced/resolved DVT ppx: SCDs due to fall risk FEN/GI: DM2 Code Status: Full Dispo: med surg (2) Urinary retention: (3) Hypertension: (4) Frequent falls: (5) Acute hypokalemia: (6) Diabetes: Admission and Anticipated Discharge Date Admission Date: July 24, 2022 Supervising Physician Co-Signing Physician Notes Patient seen and examined, chart reviewed, case discussed with Constantino Jeffries, DO and I agree with the assessment and plan as above except as otherwise noted Labs and images reviewed Chronic dementia with superimposed delirium, patient presented following f requent falls. Chronic deconditioning noted. Patient clinically stable, history is limited by dementia. Awakens easily on midday assessment, has eaten a little bit of breakfast. CTAB, RRR. Falls back asleep easily. MRI as noted, continue evening Zyprexa. Convert to melatonin on dc. Pending placement. Subjective Seen at bedside this morning. Awake. Not oriented to year/place. Says she wants to get up to use bathroom but is physically unable to. Review of Systems Review of Systems: Unobtainable due to cognitive status Physical Exam Physical Exam: General: Oriented to name, awake. HEENT: Atraumatic, normocephalic. Vision/hearing intact Pulm: CTAB. -wheezes, -rales, -rhonchi. Symmetrical chest rise. No increased work of breathing. No respiratory distress. Cardiac: RRR, +systolic murmur, radial pulses intact and symmetrical. Abdominal: Nontender, nondistended, soft. BS present. : Piña in place draining light yellow urine Results & Data Results & Data ([facility]) Vital Signs (Past 12 Hours) Vital Signs Temp Pulse Resp BP BP Pulse Ox O2 Del Method 07/27/22 08:00 Room Air 07/27/22 10:51 157/56 H 07/27/22 07:45 36.0 C L 72 16 183/63 H 96 Room Air Laboratory Results 07/27/22 07/27/22 07/26/22 Range/Units 12:18 08:40 17:11 POC Glucose 199 H 109 H 124 H (70-99) mg/dl Resident Activity Tracking Resident Involvement: Resident Care Provided Care Provided: Adult Hospital Medicine
--- NOTE | 2022-07-27 14:04 | Billing Data ---
Date of Service July 27, 2022 Coding Level of Care Code 48742 Subseq Hosp Care Lvl 1
[2022-07-28] MEDS: ACETAMINOPHEN 500 MG TAB PO SCH (05:47)
[2022-07-28] MEDS: PANTOprazole 40 MG TAB PO SCH (08:42)
[2022-07-28] MEDS: GABAPENTIN 100 MG CAP PO SCH (08:42)
[2022-07-28] MEDS: METOPROLOL SUCC 25MG EXT REL TAB PO SCH (08:42)
[2022-07-28] MEDS: busPIRone 15 MG TAB PO SCH (08:42)
[2022-07-28] MEDS: amLODIPine BESYLATE 5 MG TAB PO SCH (08:42)
[2022-07-28] MEDS: INSULIN ASPART PER UNIT SC SCH (09:19)
[2022-07-28] MEDS: traMADol HCL 50 MG TABLET PO PRN (09:29)
--- NOTE | 2022-07-28 17:20 | Discharge Summary ---
Date of Service July 28, 2022 Admission HPI Per Admitting Provider 82yo female with a history of HTN, HLD, DJD, osteoarthritis, and MDD presents after multiple falls at home. Patient's family reports patient has fallen four times in the past 72 hours, usually while getting out of bed. Patient denies prodromal symptoms including CP, SOB, lightheadedness, dizziness, or vision changes. Reports feeling weakness in her legs when standing though she notes this is not new and does not feel any worse recently compared to normal. Complaining of right hip pain but denies post-ictal symptoms now or following any of the recent falls. Patient denies LOC or head trauma. Not on anticoagu lation. No recent med changes. Patient uses a walker and reports adherence with this. Patient lives alone in a two-story home; her bedroom is on the second floor. Denies recent difficulty walking up or down stairs. Patient denies current or recent fever, chills, headache, vision changes, CP, palpitations, SOB, edema, abdominal pain, nausea, vomiting, dysuria, hematochezia, melena, back pain, numbness, tingling, or other symptoms. Denies recent illness and recent travel. Upon arrival, vitals were notable for elevated BP (150-170s/80-100s); no tachycardia or tachypnea, patient afebrile, spO2 adequate on room air. Initial labs were notable for mild anemia (10.7) and severe hypokalemia (2.6). No leukocytosis, platelets wnl, no other electrolyte abnormalities, LFTs not elevated, TSH wnl. CT head: there is no hemorrhage, mass effect, or evidence of acute territorial ischemia by CT criteria CT C-spine: osteopenia and spondylotic changes noted; no evidence of fracture or subluxation involving the cervical spine CT L-spine: osteopenia and spondylotic change as above; age-indeterminate insufficiency fracture of the right sacral ala, new from the 2019 examination; no evidence of acute fracture or malalignment involving the lumbar spine XR hip: osteopenia with chronic and postoperative changes; no acute bony abnormality is identified XR left knee: mild soft tissue swelling with no fracture identified; left knee arthroplasty is in near anatomic alignment In the ED, patient received an NSS 500mL bolus (x1), zofran 4mg IV (x1), and fentanyl 25mcg IV (x1). Surrogate decision-maker in case of an emergency: daughter Juliet Greenberg (cell: [phone]) Principal Diagnosis Falls, suspected orthostatic vs mechanical Hospital Delirium Discharge Exam General: Oriented to name, place, and time of day, Awake. HEENT: Atraumatic, normocephalic. Vision/hearing intact Pulm: CTAB. -wheezes, -rales, -rhonchi. Symmetrical chest rise. No increased work of breathing. No respiratory distress. Cardiac: RRR, +systolic murmur, radial pulses intact and symmetrical. Abdominal: Nontender, nondistended, soft. BS present. Discharge Data Allergies Allergy/AdvReac Type Severity Reaction Status Date / Time morphine AdvReac Unknown "BECAME Verified 04/04/22 15:41 PALE AND NEARLY PASSED OUT WITH [employer] MORPHINE" Consultations 07/22/22 22:35 ED Decision to Admit Stat Ordered Studies Laboratory Results WBC 7.49 K/ul (4.8-10.8) 07/25/22 06:31 RBC 3.38 M/uL (3.93-5.22) L 07/25/22 06:31 Hgb 11.0 g/dl (12.0-16.0) L 07/25/22 06:31 Hct 33.2 % (34.1-44.9) L 07/25/22 06:31 MCV 98.2 fL (80.0-100.0) 07/25/22 06:31 MCH 32.5 pg (25.0-34.0) 07/25/22 06:31 MCHC 33.1 g/dL (32.0-36.0) 07/25/22 06:31 RDW Std Deviation 44.8 fL (36.4-46.3) 07/25/22 06:31 RDW Coeff of Kylee 12.4 % (11.5-14.5) 07/25/22 06:31 Plt Count 202 K/uL (130-400) 07/25/22 06:31 MPV 12.0 fL (9.4-12.3) 07/25/22 06:31 Immature Gran % (Auto) 0.4 % 07/25/22 06:31 Neut % (Auto) 82.3 % 07/25/22 06:31 Lymph % (Auto) 8.3 % 07/25/22 06:31 [place] % (Auto) 6.3 % 07/25/22 06:31 Eos % (Auto) 2.4 % 07/25/22 06:31 Baso % (Auto) 0.3 % 07/25/22 06:31 Neut # (Auto) 6.17 K/uL (1.4-6.5) 07/25/22 06:31 Lymph # (Auto) 0.62 K/uL (1.2-3.4) L 07/25/22 06:31 [place] # (Auto) 0.47 K/uL (0.24-0.82) 07/25/22 06:31 Eos # (Auto) 0.18 K/uL (0-0.50) 07/25/22 06:31 Baso # (Auto) 0.02 K/uL (0-0.2) 07/25/22 06:31 Immature Gran # (Auto) 0.03 K/uL (0.00-0.02) H 07/25/22 06:31 Sodium 144 mmol/L (136-145) 07/25/22 06:31 Potassium 3.7 mmol/L (3.5-5.1) 07/25/22 06:31 Chloride 112 mmol/L (98-107) H 07/25/22 06:31 Carbon Dioxide 25 mmol/L (21-32) 07/25/22 06:31 Anion Gap 7 (3-11) 07/25/22 06:31 BUN 19 mg/dl (6-23) 07/25/22 06:31 Creatinine 0.86 mg/dl (0.6-1.2) 07/25/22 06:31 Est Cr Clr Drug Dosing 43.6 ml/min 07/25/22 06:31 Est GFR ( Amer) 72.9 ml/min 07/25/22 06:31 Est GFR (Non-Af Amer) 62.9 ml/min 07/25/22 06:31 BUN/Creatinine Ratio 22.1 (10-20) H 07/25/22 06:31 Glucose 96 mg/dl (70-99(Fasting)) 07/25/22 06:31 POC Glucose 105 mg/dl (70-99) H 07/28/22 08:05 Estimat Average Glucose 94 mg/dl 07/23/22 06:25 Hemoglobin A1c 4.9 % (4.5-5.6) 07/23/22 06:25 Calcium 8.6 mg/dl (8.5-10.1) 07/25/22 06:31 Magnesium 1.9 mg/dl (1.7-2.4) 07/23/22 06:25 Total Bilirubin 0.5 mg/dl (0.2-1.0) 07/22/22 17:17 AST 17 U/L (13-39) 07/22/22 17:17 ALT 10 U/L (7-52) 07/22/22 17:17 Alkaline Phosphatase 39 U/L (34-104) 07/22/22 17:17 Total Protein 5.2 gm/dl (6.0-8.3) L 07/22/22 17:17 Albumin 3.6 gm/dl (3.4-5.0) 07/22/22 17:17 Globulin 1.6 gm/dl (2.5-4.0) L 07/22/22 17:17 Albumin/Globulin Ratio 2.3 (0.9-2) H 07/22/22 17:17 Triglycerides 167 mg/dl (0-150) H 07/23/22 06:25 Cholesterol 134 mg/dl (0-200) 07/23/22 06:25 LDL Cholesterol, Calc 75 mg/dl 07/23/22 06:25 VLDL Cholesterol, Calc 33 mg/dl (0-30) H 07/23/22 06:25 HDL Cholesterol 26 mg/dl 07/23/22 06:25 Cholesterol/HDL Ratio 5.2 (0-5) H 07/23/22 06:25 Vitamin B12 861 pg/ml (180-914) 07/25/22 06:31 TSH 1.354 uIu/ml (0.300-4.500) 07/22/22 17:17 Urine Color Yellow 07/24/22 12:10 Urine Appearance Clear (Clear) 07/24/22 12:10 Urine pH 5.5 (4.5-7.5) 07/24/22 12:10 Ur Specific [place] 1.011 (1.000-1.030) 07/24/22 12:10 Urine Protein 3+ (Negative) H 07/24/22 12:10 Urine Glucose (UA) Negative (Negative) 07/24/22 12:10 Urine Ketones Negative (Negative) 07/24/22 12:10 Urine Blood Trace (Negative) H 07/24/22 12:10 Urine Nitrite Negative (Negative) 07/24/22 12:10 Urine Bilirubin Negative (Negative) 07/24/22 12:10 Urine Urobilinogen Negative (Negative) 07/24/22 12:10 Ur Leukocyte Esterase Negative (Negative) 07/24/22 12:10 Urine WBC (Auto) 1-5 /hpf (0-5) 07/24/22 12:10 Urine RBC (Auto) 0-4 /hpf (0-4) 07/24/22 12:10 U Hyaline Cast (Auto) 0 /lpf (0-5) 07/24/22 12:10 U Epithel Cells (Auto) 10-20 /lpf (0-5) H 07/24/22 12:10 Urine Bacteria (Auto) Negative (Negative) 07/24/22 12:10 SARS-CoV-2, RNA, NAAT NEGATIVE (NEGATIVE) 07/27/22 17:[address] 07/22/22 18:06 CT SCAN OF THE CERVICAL SPINE CLINICAL HISTORY: Falls. COMPARISON STUDY: No priors. TECHNIQUE: CT scan of the cervical spine is performed from the skull base to the upper thoracic spine. Images are reviewed in the axial, sagittal, and coronal planes. IV contrast was not administered for this examination. A dose lowering technique was utilized adhering to the principles of ALARA. CT DOSE: 975.52 mGy.cm FINDINGS: Skeletal structures: The skeletal structures are osteopenic. There is no evidence of fracture or subluxation involving the cervical spine. Vertebral body height and alignment are maintained. There is straightening of the cervical lordosis. Anterior osteophytes are seen throughout. The odontoid process and lateral masses are intact. The atlantoaxial articulation is preserved no definite advanced productive degenerative change. The spinous processes appear intact. There is moderate multilevel cervical spondylosis. Uncovertebral and facet arthropathy contribute to neural foraminal narrowing at several levels. Intervertebral discs: There is moderate to severe disc space narrowing at all cervical levels between C3-C4 and C6-C7. There is associated multilevel degenerative sclerosis. Central canal: Posterior disc osteophyte complexes are seen at all cervical levels between C3-C4 and C6-C7, as well as T1-T2. This likely relates to multilevel acquired compromise of the central canal. Soft tissues: The prevertebral and paraspinous soft tissues are within normal limits. The thyroid gland is enlarged and heterogeneous indicative of goiter. There is atherosclerotic calcification of the carotid bulbs. A punctate calcified sialolith is noted in the left parotid gland. Calvarium: The visualized calvarium at the skull base appears intact. Brain parenchyma: Partially visualized brain parenchyma at the skull base is within normal limits. Sinuses and mastoids: There is trace mucosal thickening in the right maxillary antrum. The mastoid air cells are well pneumatized. Cerumen is noted in the external auditory canals. Lung apices: A calcified granuloma is noted at the left apex. Apical lung parenchyma is otherwise clear as visualized. IMPRESSION: 1. There is no evidence of fracture or subluxation involving the cervical spine. 2. Osteopenia and spondylotic changes as above. ACT 112: Negative or not required by law. Electronically signed by: Hang Molina M.D. 07/22/2022 7:[address] 07/22/22 18:06 CT SCAN OF THE BRAIN WITHOUT IV CONTRAST CLINICAL HISTORY: Fall. COMPARISON STUDY: CT of the brain dated 11/23/2016. TECHNIQUE: Unenhanced axial CT scan of the brain is performed from the vertex to the skull base. A dose lowering technique was utilized adhering to the principles of ALARA. FINDINGS: Brain parenchyma: There is age-related involutional change noting moderate subcortical and periventricular microangiopathic disease. There is no hemorrhage, mass effect, or evidence of acute territorial ischemia by CT criteria. Zelaya-white matter differentiation is preserved. No extra-axial fluid collection is seen. Mineralization is noted in the basal ganglia. Ventricles, sulci, cisterns: Prominent secondary to involutional change. Intracranial vasculature: There is atherosclerotic calcification of the cavernous carotid and vertebral artery. Calvarium: The skeletal structures are osteopenic. No depressed calvarial fracture is identified. Sinuses and mastoids: The visualized paranasal sinuses are clear. The mastoid air cells are well pneumatized. Orbits: The bony orbits are grossly intact. There are bilateral ocular lens implants. IMPRESSION: There is no hemorrhage, mass effect, or evidence of acute territorial ischemia by CT criteria. ACT 112: Negative or not required by law. Electronically signed by: Hang Molina M.D. 07/22/2022 7:12 PM Hip/Pelvis X-Ray 07/22/22 18:06 SINGLE VIEW PELVIS; 2 VIEWS LEFT HIP; 2 VIEWS RIGHT HIP CLINICAL HISTORY: Fall. Hip pain. FINDINGS: An AP view of the pelvis with AP and frog leg views of the right and left hip are compared to study dated 05/09/2022. The skeletal structures are osteopenic. There is no radiographic evidence of acute fracture involving the hips or bony pelvis. There is chronic posttraumatic deformity of the right pubic ring. Bilateral hip arthroplasties are in place. No periprosthetic lucency is seen. 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 Sclerotic change is noted in the sacroiliac joints and pubic symphysis. Advanced lumbosacral spo ndylosis is partially visualized. The overlying soft tissues are normal as imaged. There is atherosclerotic calcification of the femoral arteries. IMPRESSION: 1. No acute bony abnormality is identified. 2. Osteopenia with chronic and postoperative changes as above. Electronically signed by: Hang Molina M.D. 07/22/2022 8:09 PM Knee X-Ray 07/22/22 18:06 LEFT KNEE 2 VIEWS CLINICAL HISTORY: Fall with left knee pain. FINDINGS: AP and crosstable lateral views of the left knee are compared to study dated 04/23/2020. The skeletal structures are osteopenic. No fracture is seen. A left knee arthroplasty is in near anatomic alignment. No periprosthetic lucency is identified. There has been undersurface remodeling of the patella. Suspect a small joint effusion. There is mild prepatellar soft tissue swelling. Atherosclerotic calcification is noted in the popliteal artery. IMPRESSION: 1. Mild soft tissue swelling with no fracture identified. 2. A left knee arthroplasty is in near anatomic alignment. Electronically signed by: Hang Molina M.D. 07/22/2022 8:[address] 07/22/22 18:06 CT SCAN OF THE LUMBAR SPINE WITHOUT IV CONTRAST CLINICAL HISTORY: Falls. Low back pain. COMPARISON STUDY: CT of the lumbar spine dated 11/12/2020. TECHNIQUE: CT scan of the lumbar spine is performed from the lower thoracic spine to the sacrum. Images are reviewed in the axial, sagittal, and coronal planes. IV contrast was not administered for this examination. A dose lowering technique was utilized adhering to the principles of ALARA. CT DOSE: 463.23 mGycm FINDINGS: The skeletal structures are osteopenic. Vertebral body height is maintained throughout the lumbar spine. There is minimal retrolisthesis at L1- L2. Minimal anterolisthesis is seen at L4-L5. Alignment is otherwise preserved. There is mild lumbar scoliosis. There is hyperlordosis. Anterior and lateral marginal osteophytes are seen throughout. No lytic or blastic lesion is identified. There is a left-sided pars defect at L5. There is no evidence of acute fracture or malalignment. The transverse and spinous processes appear intact. Advanced facet arthropathy is seen in the lower lumbar region. There is advanced disc space narrowing at L2-L3 with associated endplate sclerosis. Moderate to advanced disc space narrowing is seen at the remaining lumbar levels. Posterior disc osteophyte complexes are seen at all lumbar levels. This contributes to multilevel acquired compromise of the central canal. There is an age-indeterminate insufficiency fracture of the right sacral ala. Fatty atrophy is noted in the paraspinous musculature. Simple and complex bilateral renal cysts measure up to 4.1 cm. There is advanced atherosclerotic calcification of a normal caliber abdominal aorta. Cholecystectomy clips are noted. No retroperitoneal lymphadenopathy is seen. Adrenal calcifications are similar to previous. IMPRESSION: 1. There is no evidence of acute fracture or malalignment involving the lumbar spine. 2. Age-indeterminate insufficiency fracture of the right sacral ala. This is new from the 2020 examination. 3. Osteopenia and spondylotic change as above. ACT 112: Negative or not required by law. Dictated: 07/22/2022 7:13 PM Transcribed: 07/22/2022 7:27 PM Kristan [id number] [facility] Electronically signed by: Hang Molina M.D. 07/22/2022 7:28 PM Brain MRI 07/24/22 17:24 MRI OF THE BRAIN WITHOUT CONTRAST CLINICAL HISTORY: Altered mental status. COMPARISON STUDY: Head CT July 22, 2022. TECHNIQUE: Utilizing a 1.5 Siri magnet and dedicated coil, multiplanar, multiecho imaging of the brain was performed without IV contrast. FINDINGS: This exam is mildly compromised by motion artifact although is diagnostic. There are no foci of restricted diffusion to suggest acute infarct. No acute intracranial hemorrhage, midline shift or mass effect is present. Ventricular system is unremarkable. Basal cisterns are patent. There are no extra-axial collections. There is mild atrophy. White matter T2 hyperintense foci suggest mild small vessel disease. No intracranial masses identified on this unenhanced examination. Calvarial signal is within normal limits. No evidence for sinusitis. No mastoid fluid. IMPRESSION: No acute intracranial findings. Exam mildly compromised by motion artifact. ACT 112: Negative or not required by law. Electronically signed by: Pedrito Calix M.D. 07/25/2022 8:09 AM Hospital Course (1) Altered mental status: 82yo female with a history of HTN, HLD, DJD, osteoarthritis, and MDD presents after multiple falls at home. Patient's family reports patient has fallen four times in the past 72 hours, usually while getting out of bed. Altered mental status, improved - Very suspicious for some baseline dementia with now a component of hospital- acquired delirium - Metabolic encephalopathy ruled out, UA is unremarkable for infection - Given a dose of seroquel, improved. Due to sedation, seroquel dose halved. Continue seroquel 12.5mg qhs going forward. - MRI brain obtained to exclude possibility of missed stroke or other neurologic cause of worsening confusion which was negative - Dementia w/ superimposed intermittent delirium. Follow clinically, delirium precautions. Discharged to [facility]. May need a facility with a memory support unit. Frequent falls - Patient with multiple falls at home, likely mechanical vs orthostatic given they have been occurring when getting out of bed - Low suspicion for polypharmacy given no recent med changes - Vitals stable - Differential included aortic stenosis given systolic ejection murmur heard on exam, last echo (2018) only mentions mild AR - Repeat TTE-- mild as and regurg noted (new from prior), also with new mildly elevated RSVP and pericardial effusion w/o evidence of tamponade - PT/OT: recommend rehab - Fall precautions Diabetes - A1c (07/22): 4.9 - cont. home januvia Hypertension - cont. Toprol XL and Amlodipine - BP acceptable Acute hypokalemia - Replaced/resolved Urinary retention, resolved - PVR of 675 cc after voiding around 0300 on admission - Obtained UA and cx- UA unremarkable - flomas d/c'd - Piña removed, void trial success (2) Urinary retention: (3) Hypertension: (4) Frequent falls: (5) Acute hypokalemia: (6) Diabetes: Total Time Total Time Spent Total Time Spent (In Minutes): 30 Discharge Plan Discharge Items Patient Disposition: Transfer Senior Living Fac Reason For Visit: FALLS, HYPOKALEMIA Discharge Diagnosis: Falls, suspected orthostatic vs mechanical Hospital Delirium Activity: Resume your previous activity Non-emergency contact: Primary Care Provider Call non-emergency contact if: you have any medication questions, your symptoms worsen and your pain is not controlled Follow-up/Referrals: Keny Henriquez MD [Primary Care Provider] - Diet: Carb Consistent or DM2 and Heart Healthy Addtl Attending Provider Instructions: You were seen in the hospital for frequent falls and confusion. Your confusion was suspicious for baseline cognitive decline acutely worsened by hospital- acquired delirium. You gradually improved. An MRI of your brain did not show any evidence of stroke or other acute findings. An ultrasound of your heart showed mild aortic stenosis with some valvular insufficiency, and a small effusion without evidence of tamponade. You are seen by physical therapy who recommended rehab at SNF, and recommended at a memory support personal-fci be considered in the future. She did not show evidence of infection including pneumonia or UTI during admission. We have added Seroquel 12.5mg qhs to your med list. This should help with your chronic anxiety and help you sleep at night. If you develop any new or worsening symptoms including fever, chills, sweats, chest pain, chest pressure, difficulty breathing, uncontrolled nausea/vomiting, rash, wheezing, passing out or nearly passing out, bleeding, black/bloody bowel movements, or other new or concerning symptoms please call your primary care physician, or call 911 for re-evaluation in the emergency department if you are very concerned. Pending Studies at Discharge: No Stand-Alone Forms: [email or web address] Sk[facility] Items Patient informed of condition?: Yes DNR: No Discharge Level of Care: Skilled Communicable Disease: No Discharge Prognosis: Stable Lines: None Urinary Catheter: No Medications and DC Order Prescriptions: New quetiapine 25 mg Tablet 12.5 mg PO HS Qty: 30 0RF Continued simvastatin 10 mg tablet 10 mg PO QPM aspirin 81 mg Tablet,Delayed Release (Dr/Ec) 81 mg PO QDL tramadol 50 mg tablet 50 mg PO DAILY amlodipine 10 mg tablet 10 mg PO QAM buspirone 30 mg tablet 30 mg PO BID metoprolol succinate 25 mg tablet extended release 24 hr 25 mg PO QAM Januvia 50 mg tablet 50 mg PO QAM acetaminophen [Tylenol Extra Strength] 500 mg Tablet 500 mg PO Q6H PRN (Reason: Pain) trazodone 50 mg tablet 25 mg PO HS pantoprazole 20 mg tablet,delayed release (DR/EC) 20 mg PO DAILY gabapentin 100 mg capsule 200 mg PO TID Discharge Orders: Discharge Order (Routine); Ordered 07/28/22 Ordered By: Constantino Ely/Other Patient Handouts: A1C Admission Data Admit Date/Time: 07/24/22 08:48 Attending Provider: Keny Henriquez Admit Provider: Calderon Melgar Primary Care Provider: Keny Henriquez Other Providers: Matt Schneider ; Randell Cantrell [facility] ; [facility] ; [place] Other Interventions: Discharge Summary Assessment (RN) Last Done: 07/28/22 10:00 Supervising Physician Co-Signing Physician Notes Attending attestation Pt seen and examined in concert with Dr. Jeffries. In agreement with the documented findings as noted in the resident documentation with any exceptions or additions as noted here. Stable, chronic pain of the right hip which is moderately well controlled on present regimen. Somewhat unfocused and somnolent but AAOx3. Nursing notes, vital signs reviewed. On examination, S1/S2 nl RRR no MCG. CTAB. Abd NT/ND BS+ve Delirium, multifactorial, with underlying dementia, anxiety - Continue seroquel at 12.5mg for anxiety but with close monitoring for somnolence and flexible pain control with supervision as previous efforts at increased pain control were complicated by hallucinations. Frequent falls in the setting of chronic hip arthralgia s/p multiple repair/revision - SNF @ [facility], pain control as above Else see resident documentation as noted. Total attending physician time spent with the patient's care on the day of discharge: 40 minutes Resident Activity Tracking Resident Involvement: Resident Care Provided Care Provided: Adult Hospital Medicine
== END 2022-07-28 11:25 | DRG 948 ==
LOC: 2W 16:56 → ED 16:56 → SUATTDRO 22:31 → 2W 23:14 → SUATTDRO 07-24 08:48 → 3W 07-25 22:50